=== PATIENT | male | born 1985 | race Caucasian/White ===

== ENCOUNTER 2023-07-19 06:39 | Outpatient (OUT) | payer OTHER, SELFPAY ==
[2023-07-19 06:57] LABS: Basophils Absolute Auto 0.1 10^3/uL (0.0-0.1); Basophils Percent Auto 0.5 % (0.2-2.0); Eosinophils Absolute Auto 0.3 10^3/uL (0.0-0.7); Eosinophils Percent Auto 1.6 % (0.9-7.0); Hematocrit 40.7 % (42.0-54.0); Hemoglobin 13.3 g/dL (14.0-18.0); Immature Granulocytes Abs Auto 0.19 10^3/uL (0.00-0.03); Immature Granulocytes Pct Auto 1.1 % (0.0-0.5); Lymphocytes Absolute Auto 2.4 10^3/uL (1.2-3.8); Lymphocytes Percent Auto 13.9 % (20.5-60.0); Mean Corpuscular HGB Conc 32.7 g/dL (29.9-35.2); Mean Corpuscular Hemoglobin 27.7 pg (25.9-34.0); Mean Corpuscular Volume 84.6 fL (80.0-94.0); Mean Platelet Volume 9.3 fL (9.5-13.5); Monocytes Absolute Auto 1.1 10^3/uL (0.3-0.8); Monocytes Percent Auto 6.5 % (1.7-12.0); Neutrophils Absolute Auto 13.3 10^3/uL (1.4-6.5); Neutrophils Percent Auto 76.4 % (43.0-75.0); Platelet Count 273 10^3/uL (150-450); Red Blood Count 4.81 10^6/uL (4.70-6.10); Red Cell Distribution Width 13.8 % (11.0-15.0); White Blood Count 17.4 10^3/uL (4.0-11.0)
[2023-07-19 07:05] LABS: Estimated Average Glucose 117 mg/dL; Glycohemoglobin A1C 5.7 % (4.5-6.2)
[2023-07-19 09:26] LABS: Alanine Aminotransferase 84 U/L (16-63); Albumin Globulin Ratio 0.9; Albumin Level 3.3 g/dL (3.4-5.0); Alkaline Phosphatase 76 U/L (46-116); Anion Gap 10.4; Aspartate Amino Transferase 36 U/L (15-37); BUN Creatinine Ratio 21.1; Bilirubin Total 0.4 mg/dL (0.2-1.0); Calcium 8.5 mg/dL (8.5-10.1); Carbon Dioxide 30.5 mmol/L (21.0-32.0); Chloride 102 mmol/L (98-107); Chol HDL Ratio 3.1; Cholesterol 154 mg/dL (<=200); Estimated GFR (African America >60 (>=60); Estimated GFR (Non-African Ame >60 (>=60); Globulin 3.8 g/dL; Glucose 97 mg/dL (74-106); HDL Cholesterol 50 mg/dL (40-60); LDL Cholesterol Calculated 93.6 mg/dL; Potassium 3.9 mmol/L (3.5-5.1); Sodium 139 mmol/L (136-145); Total Protein 7.1 g/dL (6.4-8.2); Triglycerides 52 mg/dL (<=150); VLDL CHOLESTEROL 10.4 mg/dL
== END 2023-07-19 06:40 | disposition home or self-care (01) ==
LOC: LAB 06:40
PROVIDERS: PCP Internal Medicine; Visit Provider Internal Medicine
DX: I10 Essential (primary) hypertension (principal); Z13.220 Encounter for screening for lipoid disorders; Z13.1 Encounter for screening for diabetes mellitus
CPT/HCPCS: 36415; 80053; 80061; 83036; 85025

== ENCOUNTER 2023-10-25 12:44 | Outpatient (OUT) | payer OTHER, SELFPAY ==
--- OUTSIDE RECORDS SUMMARY | 2023-10-25 12:49 | XMS_ITS | CCD ---
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 size, or use of iterative reconstruction technique. FINDINGS: The ventricles are within normal limits for size and position. There are no areas of abnormal attenuation. There is no hemorrhage, mass effect or extra-axial collections. The calvarium is intact. There is near complete opacification the imaged right maxillary sinus. There is also minor mucosal thickening in the anterior ethmoid region on that side. CT/CT head/brain wo con IMPRESSION: RIGHT-SIDED SINUS DISEASE. NO ACUTE INTRACRANIAL TRAUMA. CT CERVICAL SPINE WITHOUT CONTRAST WITH 3D RECONSTRUCTIONS: COMPARISON: None TECHNIQUE: Spiral axial unenhanced images were obtained through the cervical spine. Sagittal, coronal and 3D volume-rendered reconstructions were also reviewed. This CT exam was performed using one or more following dose reduction techniques: Automated exposure control, adjustment of the mA and/or kV according to patient size, or use of iterative reconstruction technique. FINDINGS: There is slight cervicothoracic levoscoliotic curvature. There is also reversal of the normal cervical lordosis. Alignment is maintained in the sagittal plane. No fractures are identified. No disproportionate disc space narrowing is noted. There is endplate spurring at C5-6 and C6-7. There is a suspected Schmorl's node at superior endplate of C7. The atlantoaxial relationship is maintained. No prevertebral soft tissue swelling is seen. There is opacification the imaged right maxillary sinus and polypoid mucosal change at the base of the left. Small shotty cervical lymph nodes are present. The upper imaged lungs show no contributory pulmonary findings. IMPRESSION: LOSS OF NORMAL CERVICAL CURVATURE. MINOR DEGENERATIVE CHANGE. NO ACUTE BONY INJURY. Impression dictated by: Elenita Young M.D.05/18/2023 3:34 PM Dictation Location: [place] [address] Transcribed By: [facility] 05/18/23 1534 Dictated By: Elenita Young MD 05/18/23 1528 Signed By: 05/18/23 1534 Normal [facility] AMYLASEon 11-17-2022 Amylase [Catalytic activity/Vol] 67 U/L Normal 25-115 [facility] Comment on above: Performed By: #### C MP, MARY KAY, LIPA #### [facility] [address] [address] [address] Shi Carter CBC AUTO DIFFon 11-17-2022 BASO # 0.1 103/ul Normal 0.0-0.1 [facility] Comment on above: Performed By: #### C BC #### [facility] [address] [place] [address] Dr. Shi Carter Basophils/100 WBC (Bld) 0.4 % Normal 0.2-2.0 [facility] Comment on above: Performed By: #### C BC #### [facility] [address] [address] [address] Shi Carter EO # 0.3 103/ul Normal 0.0-0.7 [facility] Comment on above: Performed By: #### C BC #### [facility] [address] [address] [address] Shi Carter Eosinophils/100 WBC (Bld) 1.9 % Normal 0.9-7.0 [facility] Comment on above: Performed By: #### C BC #### [facility] [address] [address] [address] Shi Carter Erythrocyte distribution width (RBC) [Ratio] 13.2 % Normal 11.0-15.0 [facility] Comment on above: Performed By: #### C BC #### [facility] [address] [place] [address] Dr. Shi Carter Hematocrit (Bld) [Volume fraction] 41.9 % Critically low 42.0-54.0 [facility] Comment on above: Performed By: #### C BC #### [facility] [address] [address] [address] Shi Carter Hemoglobin (Bld) [Mass/Vol] 14.1 g/dL Normal 14.0-18.0 [facility] Comment on above: Performed By: #### C BC #### [facility] [address] [address] [address] Shi Carter IG # 0.06 10e3/ul Critically high 0.00-0.03 [facility] Comment on above: Performed By: #### C BC #### [facility] [address] [address] [address] Shi Carter IG % 0.5 % Normal 0.0-0.5 [facility] Comment on above: Performed By: #### C BC #### [facility] [address] [place] [address] Dr. Shi Carter LYMPH # 2.6 103/ul Normal 1.2-3.8 [facility] Comment on above: Performed By: #### C BC #### [facility] [address] [address] [address] Shi Carter Lymphocytes/100 WBC (Bld) 19.9 % Critically low 20.5-60.0 [facility] Comment on above: Performed By: #### C BC #### [facility] [address] [place] [address] Dr. Shi Carter MANUAL DIFF REQ NO Normal [facility] Comment on above: Performed By: #### C BC #### [facility] [address] [address] [address] Shi Carter MCH (RBC) [Entitic mass] 27.1 pg Normal 25.9-34.0 [facility] Comment on above: Performed By: #### C BC #### [facility] [address] [address] [address] Shi Carter MCHC (RBC) [Mass/Vol] 33.7 g/dL Normal 29.9-35.2 [facility] Comment on above: Performed By: #### C BC #### [facility] [address] [address] [address] Shi Carter MCV (RBC) [Entitic vol] 80.4 fL Normal 80.0-94.0 [facility] Comment on above: Performed By: #### C BC #### [facility] [address] [address] [address] Shi Carter MONO # 0.9 103/ul Critically high 0.3-0.8 [facility] Comment on above: Performed By: #### C BC #### [facility] [address] [address] [address] Shi Carter Monocytes/100 WBC (Bld) 7.1 % Normal 1.7-12.0 [facility] Comment on above: Performed By: #### C BC #### [facility] [address] [place] [address] Dr. Shi Carter NEUT # 9.2 103/ul Critically high 1.4-6.5 [facility] Comment on above: Performed By: #### C BC #### [facility] [address] [place] [address] Dr. Shi Carter Neutrophils/100 WBC (Bld) 70.2 % Normal 43.0-75.0 [facility] Comment on above: Performed By: #### C BC #### [facility] [address] [address] [address] Shi Carter Platelet mean volume (Bld) [Entitic vol] 9.9 fL Normal 9.5-13.5 [facility] Comment on above: Performed By: #### C BC #### [facility] [address] [place] [address] Dr. Shi Carter PLT 291 103/ul Normal 150-450 [facility] Comment on above: Performed By: #### C BC #### [facility] [address] [address] [address] Shi Carter RBC 5.21 106/ul Normal 4.70-6.10 [facility] Comment on above: Performed By: #### C BC #### [facility] [address] [place], [place] [address] Dr. Shi Carter WBC 13.1 103/ul Critically high 4.0-11.0 [facility] Comment on above: Performed By: #### C BC #### [facility] [address] [place] [address] ABD/PELV W CONon 11-18-[address] ABD/PELV W CON CT ABDOMEN AND PELVIS WITH CONTRAST: INDICATION: UNSPECIFIED ABDOMINAL PAIN. COMPARISON: None. TECHNIQUE:Multiple thin section transaxial slices were acquired through the abdomen and pelvis with intravenous contrast. Coronal and sagittal reconstructed images were reviewed. Oral contrastWas not administered. FINDINGS: LOWER CHEST: The lower chest is unremarkable. LIVER: The liver is unremarkable. GALLBLADDER AND BILIARY SYSTEM: No obvious ductal dilation. No calcified stones. SPLEEN: The spleen is unremarkable. PANCREAS: The pancreas is unremarkable. ADRENAL GLANDS: The adrenal glands are unremarkable. KIDNEYS AND URETERS: There is no hydronephrosis of the kidneys.No obstructing urologic calcifications are present. VASCULATURE: Vascularity is unremarkable. PERITONEUM/RETROPER ITONEUM: Peritoneum/retroper itoneum is unremarkable. LYMPH NODES: No suspicious lymphadenopathy. GASTROINTESTINAL TRACT: The bowel is normal in caliber.There is chronic colonic diverticulosis of the colon without acute inflammation.The appendix is visualized and is not inflamed. BLADDER: The urinary bladder is unremarkable. REPRODUCTIVE SYSTEM: Reproductive system is unremarkable. BODY WALL: There is a tiny fat-containing umbilical hernia. BONES: Osseous structures are unremarkable. IMPRESSION: 1. No acute process in the abdomen or pelvis. Electronically authenticated by: IMTIAZ FONTANEZ Date: 2022-11-17 01:53 Normal [facility] LIPASEon 11-17-2022 Lipase [Catalytic activity/Vol] 86.0 U/L Normal 73.0-393.0 [facility] Comment on above: Performed By: #### C MARY KAY AHMADI LIPA #### [facility] [address] [place], [place] [address] Dr. Shi Carter PROF 14(COMP METB)on 023 Albumin [Mass/Vol] 3.7 g/dL Normal 3.4-5.0 [facility] Comment on above: Performed By: #### C MARY KAY AHMADI LIPA #### [facility] [address] [address] [address] Shi Carter Albumin/Globulin [Mass ratio] 1.1 {ratio} Normal [facility] Comment on above: Performed By: #### C MP, MARY KAY, LIPA #### [facility] [address] [address] [address] Shi Carter ALP [Catalytic activity/Vol] 81 U/L Normal 46-116 [facility] Comment on above: Performed By: #### C MP, MARY KAY, LIPA #### [facility] [address] [address] [address] Shi Carter ALT [Catalytic activity/Vol] 41 U/L Normal 16-63 [facility] Comment on above: Performed By: #### C MP, MARY KAY, LIPA #### [facility] [address] [place] [address] Dr. Shi Carter Anion gap [Moles/Vol] 8.7 mmol/L Normal [facility] Comment on above: Performed By: #### C MP, MARY KAY, LIPA #### [facility] [address] [place] [address] Dr. Shi Carter AST [Catalytic activity/Vol] 19 U/L Normal 15-37 [facility] Comment on above: Performed By: #### C MP, MARY KAY, LIPA #### [facility] [address] [place] [address] Dr. Shi Carter Bilirubin [Mass/Vol] 0.2 mg/dL Normal 0.2-1.0 [facility] Comment on above: Performed By: #### C MP, MARY KAY, LIPA #### [facility] [address] [address] [address] Shi Carter Calcium [Mass/Vol] 9.0 mg/dL Normal 8.5-10.1 [facility] Comment on above: Performed By: #### C MP, MARY KAY, LIPA #### [facility] [address] [address] [address] Shi Carter Chloride [Moles/Vol] 104 mmol/L Normal 98-107 [facility] Comment on above: Performed By: #### C MP, MARY KAY, LIPA #### [facility] [address] [address] [address] Shi Carter CO2 [Moles/Vol] 29.4 mmol/L Normal 21.0-32.0 [facility] Comment on above: Performed By: #### C MP, MARY KAY, LIPA #### [facility] [address] [place] [address] Dr. Shi Carter Creatinine [Mass/Vol] 0.85 mg/dL Normal 0.70-1.30 [facility] Comment on above: Performed By: #### C MP, MARY KAY, LIPA #### [facility] [address] [place] [address] Dr. Shi Carter EGFR-AF ARGENTINE >60 Normal >=60 [facility] Comment on above: Performed By: #### C MP, MARY KAY, LIPA #### [facility] [address] [place] [address] Dr. Shi Carter EGFR-NON AF ARGENTINE >60 Normal >=60 [facility] Comment on above: Performed By: #### C MP, MARY KAY, LIPA #### [facility] [address] [place] [address] Dr. Shi Carter Globulin (S) [Mass/Vol] 3.4 g/dL Normal [facility] Comment on above: Performed By: #### C MP, MARY KAY, LIPA #### [facility] [address] [place] [address] Dr. Shi Carter Glucose [Mass/Vol] 128 mg/dL Critically high 74-[address] [facility] Comment on above: Performed By: #### C MP, MARY KAY, LIPA #### [facility] [address] [place] [address] Dr. Shi Carter Potassium [Moles/Vol] 4.1 mmol/L Normal 3.5-5.1 [facility] Comment on above: Performed By: #### C MP, MARY KAY, LIPA #### [facility] [address] [place] [address] Dr. Shi Carter Protein [Mass/Vol] 7.1 g/dL Normal 6.4-8.2 [facility] Comment on above: Performed By: #### C MARY KAY AHMADI LIPA #### [facility] [address] [place] [address] Dr. Shi Carter Sodium [Moles/Vol] 138 mmol/L Normal 136-145 [facility] Comment on above: Performed By: #### C MARY KAY AHMADI LIPA #### [facility] [address] [place] [address] Dr. Shi Carter Urea nitrogen [Mass/Vol] 12.0 mg/dL Normal 7.0-18.0 [facility] Comment on above: Performed By: #### C MARY KAY AHMADI LIPA #### [facility] [address] [place] [address] Dr. Shi Carter Urea nitrogen/Creatinine [Mass ratio] 14.1 mg/mg Normal [facility] Comment on above: Performed By: #### C MARY KAY AHMADI LIPA #### [facility] [address] [place] [address] Dr. Shi Carter CBC AUTO DIFFon 12-04-2021 BASO # 0.1 103/ul Normal 0.0-0.1 [facility] Comment on above: Performed By: #### C BC #### [facility] [address] [place] [address] Dr. Shi Carter Basophils/100 WBC (Bld) 0.4 % Normal 0.2-2.0 [facility] Comment on above: Performed By: #### C BC #### [facility] [address] [place] [address] Dr. Shi Carter EO # 0.3 103/ul Normal 0.0-0.7 [facility] Comment on above: Performed By: #### C BC #### [facility] [address] [place] [address] Dr. Shi Carter Eosinophils/100 WBC (Bld) 2.3 % Normal 0.9-7.0 [facility] Comment on above: Performed By: #### C BC #### [facility] [address] [place] [address] Dr. Shi Carter Erythrocyte distribution width (RBC) [Ratio] 13.2 % Normal 11.0-15.0 [facility] Comment on above: Performed By: #### C BC #### [facility] [address] [place] [address] Dr. Shi Carter Hematocrit (Bld) [Volume fraction] 44.3 % Normal 42.0-54.0 [facility] Comment on above: Performed By: #### C BC #### [facility] [address] [place] [address] Dr. Shi Carter Hemoglobin (Bld) [Mass/Vol] 14.3 g/dL Normal 14.0-18.0 [facility] Comment on above: Performed By: #### C BC #### [facility] [address] [place] [address] Dr. Shi Carter IG # 0.15 10e3/ul Critically high 0.00-0.03 [facility] Comment on above: Performed By: #### C BC #### [facility] [address] [place] [address] Dr. Shi Carter IG % 1.2 % Critically high 0.0-0.5 [facility] Comment on above: Performed By: #### C BC #### [facility] [address] [place] [address] Dr. Shi Carter LYMPH # 2.9 103/ul Normal 1.2-3.8 [facility] Comment on above: Performed By: #### C BC #### [facility] [address] [place] [address] Dr. Shi Carter Lymphocytes/100 WBC (Bld) 23.3 % Normal 20.5-60.0 [facility] Comment on above: Performed By: #### C BC #### [facility] [address] [place] [address] Dr. Shi Carter MANUAL DIFF REQ NO Normal [facility] Comment on above: Performed By: #### C BC #### [facility] [address] [place] [address] Dr. Shi Carter MCH (RBC) [Entitic mass] 26.7 pg Normal 25.9-34.0 [facility] Comment on above: Performed By: #### C BC #### [facility] [address] [place] [address] Dr. Shi Carter MCHC (RBC) [Mass/Vol] 32.3 g/dL Normal 29.9-35.2 [facility] Comment on above: Performed By: #### C BC #### [facility] [address] [place] [address] Dr. Shi Carter MCV (RBC) [Entitic vol] 82.8 fL Normal 80.0-94.0 [facility] Comment on above: Performed By: #### C BC #### [facility] [address] [place] [address] Dr. Shi Carter MONO # 0.8 103/ul Normal 0.3-0.8 [facility] Comment on above: Performed By: #### C BC #### [facility] [address] [place] [address] Dr. Shi Carter Monocytes/100 WBC (Bld) 6.2 % Normal 1.7-12.0 [facility] Comment on above: Performed By: #### C BC #### [facility] [address] [place] [address] Dr. Shi Carter NEUT # 8.3 103/ul Critically high 1.4-6.5 [facility] Comment on above: Performed By: #### C BC #### [facility] [address] [place] [address] Dr. Shi Carter Neutrophils/100 WBC (Bld) 66.6 % Normal 43.0-75.0 [facility] Comment on above: Performed By: #### C BC #### [facility] [address] [place] [address] Dr. Shi Carter Platelet mean volume (Bld) [Entitic vol] 9.5 fL Normal 9.5-13.5 [facility] Comment on above: Performed By: #### C BC #### [facility] [address] [place] [address] Dr. Shi Carter PLT 359 103/ul Normal 150-450 [facility] Comment on above: Performed By: #### C BC #### [facility] [address] [place] [address] Dr. Shi Carter RBC 5.35 106/ul Normal 4.70-6.10 [facility] Comment on above: Performed By: #### C BC #### [facility] [address] [place] [address] Dr. Shi Carter WBC 12.4 103/ul Critically high 4.0-11.0 [facility] Comment on above: Performed By: #### C BC #### [facility] [address] [place] [address] Dr. Shi Carter CBC AUTO DIFFon 11-22-2021 BASO # 0.1 103/ul Normal 0.0-0.1 [facility] Comment on above: Performed By: #### C BC #### [facility] [address] [place] [address] Dr. Shi Cartre Basophils/100 WBC (Bld) 0.5 % Normal 0.2-2.0 [facility] Comment on above: Performed By: #### C BC #### [facility] [address] [place] [address] Dr. Shi Carter EO # 0.3 103/ul Normal 0.0-0.7 [facility] Comment on above: Performed By: #### C BC #### [facility] [address] [place] [address] Dr. Shi Carter Eosinophils/100 WBC (Bld) 2.1 % Normal 0.9-7.0 [facility] Comment on above: Performed By: #### C BC #### [facility] [address] [place] [address] Dr. Shi Carter Erythrocyte distribution width (RBC) [Ratio] 13.6 % Normal 11.0-15.0 [facility] Comment on above: Performed By: #### C BC #### [facility] [address] [place] [address] Dr. Shi Carter Hematocrit (Bld) [Volume fraction] 44.4 % Normal 42.0-54.0 [facility] Comment on above: Performed By: #### C BC #### [facility] [address] [place] [address] Dr. Shi Carter Hemoglobin (Bld) [Mass/Vol] 14.4 g/dL Normal 14.0-18.0 [facility] Comment on above: Performed By: #### C BC #### [facility] [address] [address] [address] Shi Carter IG # 0.35 10e3/ul Critically high 0.00-0.03 [facility] Comment on above: Performed By: #### C BC #### [facility] [address] [place] [address] Dr. Shi Carter IG % 2.3 % Critically high 0.0-0.5 [facility] Comment on above: Performed By: #### C BC #### [facility] [address] [address] [address] Shi Carter LYMPH # 2.4 103/ul Normal 1.2-3.8 [facility] Comment on above: Performed By: #### C BC #### [facility] [address] [place] [address] Dr. Shi Carter Lymphocytes/100 WBC (Bld) 15.8 % Critically low 20.5-60.0 [facility] Comment on above: Performed By: #### C BC #### [facility] [address] [place] [address] Dr. Shi Carter MANUAL DIFF REQ NO Normal [facility] Comment on above: Performed By: #### C BC #### [facility] [address] [address] [address] Shi Carter MCH (RBC) [Entitic mass] 27.0 pg Normal 25.9-34.0 [facility] Comment on above: Performed By: #### C BC #### [facility] [address] [place] [address] Dr. Shi Carter MCHC (RBC) [Mass/Vol] 32.4 g/dL Normal 29.9-35.2 [facility] Comment on above: Performed By: #### C BC #### [facility] [address] [place] [address] Dr. Shi Carter MCV (RBC) [Entitic vol] 83.3 fL Normal 80.0-94.0 [facility] Comment on above: Performed By: #### C BC #### [facility] [address] [place] [address] Dr. Shi Carter MONO # 1.0 103/ul Critically high 0.3-0.8 [facility] Comment on above: Performed By: #### C BC #### [facility] [address] [place] [address] Dr. Shi Carter Monocytes/100 WBC (Bld) 6.5 % Normal 1.7-12.0 [facility] Comment on above: Performed By: #### C BC #### [facility] [address] [place] [address] Dr. Shi Carter NEUT # 11.3 103/ul Critically high 1.4-6.5 [facility] Comment on above: Performed By: #### C BC #### [facility] [address] [place] [address] Dr. Shi Carter Neutrophils/100 WBC (Bld) 72.8 % Normal 43.0-75.0 [facility] Comment on above: Performed By: #### C BC #### [facility] [address] [place] [address] Dr. Shi Carter Platelet mean volume (Bld) [Entitic vol] 9.6 fL Normal 9.5-13.5 [facility] Comment on above: Performed By: #### C BC #### [facility] [address] [place] [address] Dr. Shi Carter PLT 343 103/ul Normal 150-450 [facility] Comment on above: Performed By: #### C BC #### [facility] [address] [place] [address] Dr. Shi Carter RBC 5.33 106/ul Normal 4.70-6.10 [facility] Comment on above: Performed By: #### C BC #### [facility] [address] [address] [address] Shi Carter WBC 15.5 103/ul Critically high 4.0-11.0 [facility] Comment on above: Performed By: #### C BC #### [facility] [address] [address] [address] Shi Carter GLYCOHEMOGLOBIN A1Con 2021 ADA RECOMMENDATION ADA THERAPEUTIC TARGET 6.0 - 7.0 ACTION SUGGESTED > 7.0 Normal [facility] Comment on above: Performed By: #### A 1C #### [facility] [address] [address] [address] Shi Carter Glucose [Mass/Vol] 117 mg/dL Normal [facility] Comment on above: Performed By: #### A 1C #### [facility] [facility] [address] [address] [address] Shi Carter HbA1c (Bld) [Mass fraction] 5.7 % Normal <=6.0 [facility] Comment on above: Performed By: #### A 1C #### [facility] [address] [place] [address] Dr. Shi Carter LIPID PROFILEon 11-22-2021 CHOL-HDL RATIO NORM SEE BELOW Normal [facility] Comment on above: Result Comment: 3.3 - 4.4 LOW RISK 4.4 - 7.1 AVERAGE RISK 7.1 - 11.0 MODERATE RISK >11.0 HIGH RISK Performed By: #### L IPID, CMP #### [facility] [address] [place] [address] Dr. Shi Carter Cholesterol [Mass/Vol] 163 mg/dL Normal <=200 [facility] Comment on above: Performed By: #### L IPID, CMP #### [facility] [address] [place] [address] Dr. Shi Carter Cholesterol in HDL [Mass/Vol] 44 mg/dL Normal [facility] Comment on above: Performed By: #### L IPID, CMP #### [facility] [address] [address] [address] Shi Carter Cholesterol in LDL [Mass/Vol] 97.6 mg/dL Normal [facility] Comment on above: Performed By: #### L IPID, CMP #### [facility] [address] [place] [address] Dr. Shi Carter Cholesterol.total/Chol esterol in HDL [Mass ratio] 3.7 {ratio} Normal [facility] Comment on above: Performed By: #### L IPID, CMP #### [facility] [address] [place] [address] Dr. Shi Carter HDL NORMAL > or = 60 mg/dl - LOW CARDIOVASCULAR RISK <40 mg/dl - HIGH CARDIOVASCULAR RISK Normal [facility] Comment on above: Performed By: #### L IPID, CMP #### [facility] [address] [place] [address] Dr. Shi Carter LDL CALC NORMAL SEE BELOW Normal [facility] Comment on above: Result Comment: <100 mg/dl OPTIMAL 100 - 129 mg/dl NEAR OR ABOVE OPTIMAL 130 - 159 mg/dl BORDERLINE HIGH 160 - 189 mg/dl HIGH >190 mg/dl VERY HIGH Performed By: #### L IPID, CMP #### [facility] [address] [place] [address] Dr. Shi Carter Triglyceride [Mass/Vol] 107 mg/dL Normal <=150 [facility] Comment on above: Performed By: #### L IPID, CMP #### [facility] [address] [place] [address] Dr. Shi Carter VLDL CALC 21.4 mg/dL Normal [facility] Comment on above: Performed By: #### L IPID, CMP #### [facility] [address] [place] [address] Dr. Shi Carter PROF 14(COMP METB)on 022 Albumin [Mass/Vol] 3.2 g/dL Critically low 3.5-5.0 [facility] Comment on above: Performed By: #### L IPID, CMP #### [facility] [address] [place] [address] Dr. Shi Carter Albumin/Globulin [Mass ratio] 0.8 {ratio} Normal [facility] Comment on above: Performed By: #### L IPID, CMP #### [facility] [address] [address] [address] Shi Carter ALP [Catalytic activity/Vol] 92 U/L Normal 38-126 [facility] Comment on above: Performed By: #### L IPID, CMP #### [facility] [address] [address] [address] Shi Carter ALT [Catalytic activity/Vol] 36 U/L Normal 21-72 [facility] Comment on above: Performed By: #### L IPID, CMP #### [facility] [address] [place] [address] Dr. Shi Carter Anion gap [Moles/Vol] 11.1 mmol/L Normal [facility] Comment on above: Performed By: #### L IPID, CMP #### [facility] [address] [place] [address] Dr. Shi Carter AST [Catalytic activity/Vol] 19 U/L Normal 17-59 [facility] Comment on above: Performed By: #### L IPID, CMP #### [facility] [address] [place] [address] Dr. Shi Carter Bilirubin [Mass/Vol] 0.2 mg/dL Normal 0.2-1.3 [facility] Comment on above: Performed By: #### L IPID, CMP #### [facility] [address] [place] [address] Dr. Shi Carter Calcium [Mass/Vol] 8.3 mg/dL Critically low 8.4-10.2 [facility] Comment on above: Performed By: #### L IPID, CMP #### [facility] [address] [place] [address] Dr. Shi Carter Chloride [Moles/Vol] 104 mmol/L Normal 98-107 [facility] Comment on above: Performed By: #### L IPID, CMP #### [facility] [address] [place] [address] Dr. Shi Carter CO2 [Moles/Vol] 29.3 mmol/L Normal 22.0-30.0 [facility] Comment on above: Performed By: #### L IPID, CMP #### [facility] [address] [address] [address] Shi Carter Creatinine [Mass/Vol] 0.99 mg/dL Normal 0.66-1.25 [facility] Comment on above: Performed By: #### L IPID, CMP #### [facility] [address] [address] [address] Shi Carter EGFR-AF ARGENTINE >60 Normal >=60 [facility] Comment on above: Performed By: #### L IPID, CMP #### [facility] [address] [place] [address] Dr. Shi Carter EGFR-NON AF ARGENTINE >60 Normal >=60 [facility] Comment on above: Performed By: #### L IPID, CMP #### [facility] [address] [place] [address] Dr. Shi Carter Globulin (S) [Mass/Vol] 4.1 g/dL Normal [facility] Comment on above: Performed By: #### L IPID, CMP #### [facility] [address] [place] [address] Dr. Shi Carter Glucose [Mass/Vol] 103 mg/dL Normal 74-106 [facility] Comment on above: Performed By: #### L IPID, CMP #### [facility] [address] [place] [address] Dr. Shi Carter Potassium [Moles/Vol] 4.4 mmol/L Normal 3.4-5.0 [facility] Comment on above: Performed By: #### L IPID, CMP #### [facility] [address] [place] [address] Dr. Shi Carter Protein [Mass/Vol] 7.3 g/dL Normal 6.1-8.2 [facility] Comment on above: Performed By: #### L IPID, CMP #### [facility] [address] [place] [address] Dr. Shi Carter Sodium [Moles/Vol] 140 mmol/L Normal 137-145 [facility] Comment on above: Performed By: #### L IPID, CMP #### [facility] [address] [place] [address] [address] [address] Shi Carter Urea nitrogen [Mass/Vol] 14.0 mg/dL Normal 9.0-20.0 [facility] Comment on above: Performed By: #### L IPID, CMP #### [facility] [address] [place], [place] [address] Dr. Shi Carter Urea nitrogen/Creatinine [Mass ratio] 14.1 mg/mg Normal [facility] Comment on above: Performed By: #### L IPID, CMP #### [facility] [address] [place], [place] [id number] Dr. Shi Carter Vital Signs Date Time Vital Sign Value Performing Clinician Facility 10-22-2023 07:40-0500 Diastolic blood pressure 87 mm[Hg] Dominga Timmis [facility] 10-22-2023 07:40-0500 Heart rate 76 /min Dominga Timmis [facility] 10-22-2023 07:40-0500 Mean blood pressure 106 mm[Hg] Dominga Timmis [facility] 10-22-2023 07:40-0500 Systolic blood pressure 144 mm[Hg] Dominga Timmis [facility] 10-22-2023 07:40-0500 Heart rate 78 /min Dominga Timmis [facility] 10-22-2023 07:40-0500 SaO2% (BldA) [Mass fraction] 97 % Dominga Timmis [facility] 10-22-2023 07:40-0500 Diastolic blood pressure 84 mm[Hg] Dominga Timmis [facility] 10-22-2023 07:40-0500 Mean blood pressure 103 mm[Hg] Dominga Conner [facility] 10-22-2023 07:40-0500 Systolic blood pressure 142 mm[Hg] Dominga Conner [facility] 10-16-2023 13:45-0500 Body height 185.42 cm Sylvia Colonmond Other [facility] Other 10-16-2023 13:45-0500 Body mass index (BMI) [Ratio] 58.94 kg/m2 Sylvia Colonmond Other [facility] 10-16-2023 13:45-0500 Body temperature 96.8 [degF] Sylvia Colonmond Other [facility] Other 10-16-2023 13:45-0500 Body weight 202.67 kg Sylvia Colonmond Other [facility] Other 10-16-2023 13:45-0500 Diastolic blood pressure 90 mm[Hg] Sylvia Colonmond Other [facility] Other 10-16-2023 13:45-0500 Respiratory rate 18 /min Sylvia Colonmond Other [facility] Other 10-16-2023 13:45-0500 SaO2% (BldA) [Mass fraction] 99 % Sylvia Yuliana Other [facility] Other 10-16-2023 13:45-0500 Systolic blood pressure 134 mm[Hg] Sylvia Yuliana Other [facility] Other 07-16-2023 09:25-0500 Body height 185.42 cm Sheeba Renia Other [facility] Other 07-16-2023 09:25-0500 Body mass index (BMI) [Ratio] 54.56 kg/m2 Sheeba Reina Other [facility] Other 07-16-2023 09:25-0500 Body temperature 98.8 [degF] Sheeba Reina Other [facility] Other 07-16-2023 09:25-0500 Body weight 187.61 kg Sheeba Reina Other [facility] Other 07-16-2023 09:25-0500 Diastolic blood pressure 78 mm[Hg] Sheeba Reina Other [facility] Other 07-16-2023 09:25-0500 Respiratory rate 18 /min Sheeba Reina Other [facility] Other 07-16-2023 09:25-0500 SaO2% (BldA) [Mass fraction] 97 % Sheeba Jonesler Other [facility] Other 07-16-2023 09:25-0500 Systolic blood pressure 118 mm[Hg] Sheeba Reina Other [facility] Other Encounters Encounter Date Encounter Type Care Provider Facility Start: 10-22-2023 Clinisync Result Encounter Dominga Conner MD Work Phone: [facility] Unsolicited Start: 10-22-2023 Clinisync Result Encounter Dominga Conner MD Work Phone: [facility] Unsolicited Start: 10-22-2023 End: 10-23-2023 ambulatory Dominga Conner Facility:[facility] Start: 10-22-2023 End: 10-22-2023 Patient encounter procedure Dominga Deepika Dalila [facility] Start: 10-16-2023 End: 10-16-2023 ambulatory Sylvia Bridges Other [employer] [facility] Other Start: 10-16-2023 Office outpatient vi sit 15 minutes Sylvia Bridges [facility] Start: 09-18-2023 End: 09-18-2023 ambulatory DOMINGA H TIMMIS Not Available Start: 09-17-2023 Patient encounter status Dominga Conner MD Work Phone: [facility] Start: 09-17-2023 End: 09-17-2023 ambulatory BUT[facility] FAWWAD Not Available Start: 09-14-2023 End: 09-15-2023 ambulatory Dominga Conner Facility:[facility] Start: 09-14-2023 End: 09-14-2023 Patient encounter procedure Dominga Deepika Dalila [facility] Start: 08-07-2023 End: 08-07-2023 ambulatory DOMINGA Poe TIMMIS Not Available Start: 07-16-2023 End: 07-16-2023 ambulatory Sheeba Reina Other [facility] Other Start: 07-16-2023 Office outpatient ne w 30 minutes Sheeba Reina [facility] Start: 05-18-2023 End: 05-18-2023 Emergency department patient visit NON STAFF Facility:[facility] Start: 11-17-2022 End: 11-17-2022 ambulatory BUTTERFIELD H FAWWAD Facility:[facility] Start: 12-04-2021 End: 12-05-2021 ambulatory BUT[facility]FIELD H FAWWAD Facility:[facility] Start: 11-22-2021 End: 11-23-2021 ambulatory [facility] H FAWWAD Facility:[facility] Procedures Date Procedure Procedure Detail Performing Clinician Start: 10-22-2023 [facility] PT & PTT Dominga Conner MD Work Phone: Ethmoid sinusectomy Dominga David immyessi Lipoma (disorder) Dominga Narinder allie Tonsillectomy Dominga Conner Plan of Treatment Date Care Activity Detail Author Start: 03-08-2024 Influenza vaccination Influenza Vacc ine (#1) [facility] Comment on above: Postponed from 05/10 (Patient Refused) Start: 11-15-2023 End: 11-15-2023 Patient encounter procedure 11/15/2023 8:30 AM EST Office Visit [facility] [address] [place] [address] Dominga Conner MD [address] [facility] [address] [place] [address] [facility] Start: 11-07-2023 End: 11-07-2023 Patient encounter procedure 11/07/2023 9:00 AM EST Procedure Visit [facility] Dominga Conner MD [address] [facility] [address] [place] [address] [facility] Start: 10-29-2023 End: 10-29-2023 Patient encounter procedure 10/29/2023 9:00 AM EST Office Visit [facility] [address] [place] [id number] Shaikh Ley MD [address] [place] [id number] [facility] Payers Date Payer Category Payer Self-pay 2023 Unknown [id number] 2022 Unknown [id number] 2022 Unknown [employer] [id number] 2022-Present [phone] [address] [address] [place] [address] [id number] 1986 Unknown [id number] 1986 Unknown [id number] 1986 Unknown [id number] 1986 Unknown [id number] 9 1986 Unknown [id number] 9 1986 Unknown [id number] 9 1986 Unknown [id number] 1986 Unknown [id number] 1959 Unknown [id number] 1959 Unknown [id number] Unknown [id number] Social History Date Type Detail Facility Unknown if ever smoked [facility] Other Start: 09-10-2023 End: 09-18-2023 Sex Assigned At [facility] Tobacco smoking status No Smokin g Status Entered [facility] Start: 09-17-2023 Tobacco smoking status NHIS Ex-smoker [facility] History of tobacco use Current smoker [facility] History of tobacco use Cigarette Smoker [facility] Start: 09-17-2023 Tobacco use and exposure Smokeless tobacco non-user [facility] Start: 09-18-2023 Alcohol intake Ex-drinker (finding) [facility] Start: 09-10-2023 End: 09-18-2023 History of Social function [facility] Within the last year , have you been afraid of your partner or ex-partner? No [facility] Are you now , , , , never or living with a partner? [facility] How often to you hav e a drink containing alcohol? 2-4 times a month [facility] How many standard dr inks containing alcohol do you have on a typical day? 1 or 2 [facility] How often do you hav e 6 or more drinks on 1 occasion? Never [facility] How hard is it for y ou to pay for the very basics like food, housing, medical care, and heating Hard [facility] Do you feel stress - tense, restless, nervous, or anxious, or unable to sleep at night because your mind is troubled all the time - these days [OSQ] To some extent [facility] (I/We) worried [facility] (my/our) food would run out before (I/we) got money to buy more. Never true [facility] In the past 12 month s, has lack of transportation kept you from medical appointments or from getting medications? No [facility] Start: 08-06-2023 Alcohol Comment caffeine: yes soda [facility] Start: 1985 Sex Assigned At Not on file [facility] Functional Status Date Assessment Result Facility 10-22-2023 Functional Status No [facility] History and physical note 10-21-2023 Note Date & Type Note Facility 10-21-2023 Note [id number]#1.00[facility] Evaluation note 10-16-2023 Note Date & Type Note Facility 10-16-2023 Evaluation note Encounter Date Diagnosis Assessment Notes Oct, Acute folliculitis (ICD-10 - L73.9) Take the cephalexin as prescribed until gone. Apply warm compresses to the area 2-3 times a day. Take Tylenol or Motrin as needed for aches pains or fevers. Follow-up with your family physician if no improvement in 2 to 3 days. Go to the ER for worsening symptoms or concerns. [facility] Other Evaluation note 07-16-2023 Note Date & Type Note Facility 07-16-2023 Evaluation note Encounter Date Diagnosis Assessment Notes Jul, Contact with and (suspected) exposure to covid-19 (ICD-10 - Z20.822) Jul, Viral URI with cough (ICD-10 - J06.9) Advised patient that COVID/Influenza A/B test was negative today. Advised patient that will treat as viral URI. Supportive care as directed, increase fluids and rest, Tylenol as directed, rx of Capmist, prednisone, and Flonase, cool mist humidifier, throat lozenges. Discussed infection control practices such as good hand washing and mask wearing. Patient to follow up with PCP if symptoms persist or worsen despite treatment. Immediate eval for SOB, difficulty breathing, chest pain, fevers that do not break with antipyretic or any other concerning symptoms as reviewed on patient education handout. Patient verbalizes understanding and is agreeable to treatment plan. Patient left in stable condition [employer] [facility] Other History general Narrative - Reported 10-12-2015 Note Date & Type Note Facility 10-12-2015 History general N arrative - Reported Type Medical History EGD 10/12/2015- mild esophagus Surgical History Tonsilectomy Surgical History deviated septum repair Surgical History sinus surgery Hospitalization History see above [facility] Other History general Narrative - Reported 10-12-2015 Note Date & Type Note Facility 10-12-2015 History general N arrative - Reported Type Medical History EGD 10/12/2015- mild esophagus Surgical History Tonsilectomy Surgical History deviated septum repair Surgical History sinus surgery Surgical History sinus surgery Hospitalization History see above [facility] Other Evaluation + Plan note Note Date & Type Note Facility Evaluation + Plan note No data available for this section [facility] Evaluation + Plan note Note Date & Type Note Facility Evaluation + Plan note Future Appointments Appointment Date:11/07/2023 08:00:00 AM Scheduled Provider: Location:[facility] Appointment Type:Surgery FT [facility] Hospital Discharge instructions Note Date & Type Note Facility Hospital Discharge instructions No data available for this section [facility] Progress note Note Date & Type Note Facility Progress note No data available for this section [facility] Summary Purpose Family History No Family History Records FoundNo Family History Records Found No data available for this section No Family History Records Found No data available for this section No Family History Records Found Advance Directives No Advanced Directives Records FoundNo Advanced Directives Records FoundNo Advanced Directives Records FoundNo Advanced Directives Records Found Additional Source Comments (unrecognized sect ion and content) No Status Records FoundNo Status Records FoundNo Status Records FoundNo Status Records Found INFORMATION SOURCE (unrecogn ized section and content) DATE CREATED AUTHOR 11/21/2022 [facility] DATE CREATED AUTHOR AUTHOR'S ORGANIZ ATION 06/13/2023 [facility] DATE CREATED AUTHOR AUTHOR'S ORGANIZ ATION 09/18/2023 [facility] EPIC DATE CREATED AUTHOR AUTHOR'S ORGANIZ ATION 10/23/2023 [facility] REASON FOR VISIT (unrecogniz ed section and content) STUFFY, NOSE PLUG, DRAINING, SWOLLEN GLANDS,POSS INFECTED ABCESS IN GROIN AREA Care Teams (unrecognized sec tion and content) Business Intelligence Administrator Relationship Specialty Start Date End Date Shaikh Ley MD PCP - General Internal Medicine 07/01/23 FOR RECORDS PERTAINING TO PATIENTS WHO ARE OR HAVE BEEN ENROLLED IN A CHEMICAL DEPENDENCY/SUBSTANCEABUSE PROGRAM, SOME INFORMATION MAY BE OMITTED. This clinical summary was aggregated from multiple sources. Caution should be exercised in using it in the provision of clinical care. This summary normalizes information from multiple sources, and as a consequence, information in this document may materially change the coding, format and clinical context of patient data. In addition, data may be omitted in some cases. CLINICAL DECISIONS SHOULD BE BASED ON THE PRIMARY CLINICAL RECORDS. [email or web address] [facility]. provides no warranty or guarantee of the accuracy or completeness of information in this document.
[2023-10-25 13:22] LABS: Basophils Absolute Auto 0.1 10^3/uL (0.0-0.1); Basophils Percent Auto 0.4 % (0.2-2.0); Eosinophils Absolute Auto 0.3 10^3/uL (0.0-0.7); Eosinophils Percent Auto 2.2 % (0.9-7.0); Hematocrit 41.9 % (42.0-54.0); Hemoglobin 13.3 g/dL (14.0-18.0); Immature Granulocytes Pct Auto 0.9 % (0.0-0.5); Lymphocytes Absolute Auto 2.2 10^3/uL (1.2-3.8); Lymphocytes Percent Auto 19.2 % (20.5-60.0); Mean Corpuscular HGB Conc 31.7 g/dL (29.9-35.2); Mean Platelet Volume 9.5 fL (9.5-13.5); Monocytes Absolute Auto 0.7 10^3/uL (0.3-0.8); Monocytes Percent Auto 6.4 % (1.7-12.0); Neutrophils Absolute Auto 8.2 10^3/uL (1.4-6.5); Neutrophils Percent Auto 70.9 % (43.0-75.0); Platelet Count 327 10^3/uL (150-450); Red Blood Count 4.93 10^6/uL (4.70-6.10); Red Cell Distribution Width 13.2 % (11.0-15.0); White Blood Count 11.6 10^3/uL (4.0-11.0)
[2023-10-25 13:33] LABS: INR 0.99; Partial Thromboplastin Time 31.4 sec (22.3-36.2); Prothrombin Time 10.5 sec (9.0-11.6)
== END 2023-10-25 12:45 | disposition home or self-care (01) ==
LOC: LAB 12:45
PROVIDERS: PCP Internal Medicine; Visit Provider Otolaryngology
DX: J32.8 Other chronic sinusitis (principal)
CPT/HCPCS: 85025; 85610; 85730

== ENCOUNTER 2024-01-09 14:48 | Outpatient (OUT) | payer OTHER, SELFPAY ==
--- NOTE | 2024-01-09 15:26 | XR_ITS ---
The [address] [address] Patient Name: NEAL LIMON MRN: [id number] date: 1985 Sex: M Assigned Patient Location: LAB Current Patient Location: LAB Accession/Order Number: [id number] Exam Date: 01/09/2024 15:30 Report Date: 01/09/2024 16:11 At the request of: SHAIKH ALBERTO Procedure: XR chest 2V EXAMINATION: XR chest 2V HISTORY: Respiratory illness J98.9 COMPARISON: No relevant comparison available. TECHNIQUE: PA and lateral FINDINGS: LUNGS: No significant pulmonary parenchymal abnormalities. VASCULATURE: No increased pulmonary vasculature. PLEURA: No pneumothorax, effusion, or pleural thickening. CARDIAC: No cardiomegaly or cardiac silhouette abnormality. MEDIASTINUM: No visible mass or adenopathy. BONES: No fracture or visible bone lesion. OTHER: Negative. XR/XR chest 2V IMPRESSION: No acute cardiopulmonary process Electronically authenticated by: MERLE CHANCE Date: 01/09/2024 16:11
== END 2024-01-09 14:49 | disposition home or self-care (01) ==
PROVIDERS: PCP Internal Medicine; Visit Provider Internal Medicine
DX: J98.9 Respiratory disorder, unspecified (principal)
CPT/HCPCS: 71046

== ENCOUNTER 2024-01-11 00:51 | Emergency (ER) | payer OTHER, SELFPAY ==
[2024-01-11 00:56] VITALS: BP 134/97; PULSE 78; TEMP 36.3; O2SAT 96; BMI 55.4
--- NOTE | 2024-01-11 01:11 | ED_ITS ---
HPI HPI - General Adult General Chief complaint: Nausea/Vomiting/Diarrhea Stated complaint: Blood in stool Time Seen by Provider: 01/11/24 00:55 Source: patient Mode of arrival: walk-in Limitations: no limitations History of Present Illness HPI narrative: 38-year-old male presents to the emergency department for blood in his stool. He had taken his dog for a walk today and had a burning sensation in his perianal area and when he got home he went into the bathroom and passed some blood. He states it was bright in color. No abdominal pain or cramping. This has never happened to him before and he has never had a colonoscopy. No vomiting. Related Data Home Medications ?Medication ?Instructions ?Recorded ?Confirmed benzonatate 100 mg capsule mg PO 01/11/24 fluticasone propionate 50 intranasal 01/11/24 mcg/actuation nasal spray,suspension levofloxacin 750 mg tablet mg 01/11/24 losartan 100 tab 01/11/24 mg-hydrochlorothiazide 25 mg tablet montelukast 10 mg tablet mg 01/11/24 prednisone 20 mg tablet mg 01/11/24 Allergies Allergy/AdvReac Type Severity Reaction Status Date / Time No Known Drug Allergies Allergy Verified 01/11/24 00:56 Opioid HPI Opioid Management Most Recent Opioid Data: No Data to Display Review of Systems ROS Narrative A ten point review of systems is negative except as noted above. Exam Narrative Exam Narrative: Nurses note and vital signs reviewed and patient is not hypoxic. General: The patient appears well and in no apparent distress. Patient is resting comfortably on cart. Skin: Warm, dry, no pallor noted. There is no rash noted. Head: Normocephalic, atraumatic Eye: Normal conjunctiva, no drainage Ears, Nose, Mouth, and Throat: oral mucosa is moist. Nares patent. Cardiovascular: Regular Rate and Rhythm Respiratory: Patient is in no distress, no accessory muscle use, lungs are clear to auscultation, no wheezing, rales or rhonchi Back: non-tender GI: Obese and nontender. Perianal examination shows no external hemorrhoids. Musculoskeletal: The patient has no evidence of calf tenderness, no pitting edema, symmetrical pulses noted bilaterally Neurological: A&O, normal speech Psychiatric: Cooperative Constitutional Vital Signs, click to edit/add: Last Vital Signs Temp 97.3 F L 01/11/24 00:56 Pulse 78 01/11/24 00:56 Resp 18 01/11/24 00:56 BP 134/97 H 01/11/24 00:56 Pulse Ox 96 01/11/24 00:56 O2 Del Method Room Air 01/11/24 00:56 Course Vital Signs Vital signs: Vital Signs Temperature 97.3 F L 01/11/24 00:56 Pulse Rate 78 01/11/24 00:56 Respiratory Rate 18 01/11/24 00:56 Blood Pressure 134/97 H 01/11/24 00:56 Pulse Oximetry 96 01/11/24 00:56 Oxygen Delivery Method Room Air 01/11/24 00:56 Temperature 97.3 F L 01/11/24 00:56 Pulse Rate 78 01/11/24 00:56 Respiratory Rate 18 01/11/24 00:56 Blood Pressure 134/97 H 01/11/24 00:56 Pulse Oximetry 96 01/11/24 00:56 Oxygen Delivery Method Room Air 01/11/24 00:56 Medical Decision Making MDM Narrative Medical decision making narrative: Hemoglobin is normal. He is being referred to GI for appropriate follow-up. The possible need for endoscopy was discussed with the patient. Differential Diagnosis Differential Diagnosis: Internal hemorrhoid, external hemorrhoid Lab Data Lab results reviewed: Yes I reviewed the patient's lab results Labs: Lab Results 01/11/24 Range/Units 01:29 WBC 13.9 H (4.0-11.0) 10^3/uL RBC 4.97 (4.70-6.10) 10^6/uL Hgb 13.0 L (14.0-18.0) g/dL Hct 40.5 L (42.0-54.0) % MCV 81.5 (80.0-94.0) fL MCH 26.2 (25.9-34.0) pg MCHC 32.1 (29.9-35.2) g/dL RDW 13.3 (11.0-15.0) % Plt Count 317 (150-450) 10^3/uL MPV 9.1 L (9.5-13.5) fL Neut % (Auto) 72.5 (43.0-75.0) % Lymph % (Auto) 17.9 L (20.5-60.0) % [place] % (Auto) 7.0 (1.7-12.0) % Eos % (Auto) 1.6 (0.9-7.0) % Baso % (Auto) 0.5 (0.2-2.0) % Neut # (Auto) 10.1 H (1.4-6.5) 10^3/uL Lymph # (Auto) 2.5 (1.2-3.8) 10^3/uL [place] # (Auto) 1.0 H (0.3-0.8) 10^3/uL Eos # (Auto) 0.2 (0.0-0.7) 10^3/uL Baso # (Auto) 0.1 (0.0-0.1) 10^3/uL Abs Immat Gran (auto) 0.07 H (0.00-0.03) 10^3/uL Imm/Tot Granulo (auto) 0.5 (0.0-0.5) % Sodium 137 (136-145) mmol/L Potassium 4.0 (3.5-5.1) mmol/L Chloride 102 (98-107) mmol/L Carbon Dioxide 28.4 (21.0-32.0) mmol/L Anion Gap 10.6 BUN 17.0 (7.0-18.0) mg/dL Creatinine 1.26 (0.70-1.30) mg/dL Est GFR ( Amer) >60 (>=60) Est GFR (Non-Af Amer) >60 (>=60) BUN/Creatinine Ratio 13.5 Glucose 94 (74-106) mg/dL Calcium 9.0 (8.5-10.1) mg/dL Discharge Plan Discharge Stand Alone Forms: Portal Instructions Chief Complaint: Nausea/Vomiting/Diarrhea Clinical Impression: Rectal bleeding Patient Disposition: Home, Self-Care Time of Disposition Decision: 02:09 Condition: Good Mode of Transportation: Private Vehicle Prescriptions / Home Meds: No Action prednisone 20 mg tablet losartan-hydrochlorothiazide 100-25 mg tablet benzonatate 100 mg capsule PO montelukast 10 mg tablet levofloxacin 750 mg tablet fluticasone propionate 50 mcg/actuation spray,suspension INTRANASAL Print Language: [place] Instructions: Rectal Bleeding (ED) Additional Instructions: Follow-up with Dr. Gonzalez Referrals: Lorenzo Gonzalez MD [Physician] - 1 week Shaikh Ley MD [Primary Care Provider] - 1 week
--- OUTSIDE RECORDS SUMMARY | 2024-01-11 01:30 | XMS_ITS | CCD ---
Author Organization [facility] Care Team Providers Care Splitter Operator Name Role Phone FAWWALon, BUTTERFIELD H Primary Care Unavailable BECKIE, KRYSTINA Attending Unavailable BECKIE, KRYSTINA Consulting Unavailable BECKIE, KRYSTINA Admitting Unavailable STRAWLENI, IMTIAZ Consulting Unavailable FAWWAD, BUTTERFIELD H Primary Care Unavailable FAWWAD, BUTTERFIELD H Admitting Unavailable FAWWAD, BUTTERFIELD H Attending Unavailable FAWWAD, BUTTERFIELD H Consulting Unavailable FAWWAD, BUTTERFIELD H Primary Care Unavailable FAWWAD, BUTTERFIELD H Admitting Unavailable FAWWAD, BUTTERFIELD H Attending Unavailable FAWWAD, BUTTERFIELD H Consulting Unavailable NON STAFF Primary Care Unavailable Dorothy Bloom Attending Unavailable Dorothy Bloom Admitting Unavailable Sheeba Reina Unavailable NONE, XXXX Primary Care Physician Unavailab Sylvia Bergeron Unavailable Shaikh Ley MD Primary Care Provider SHAIKH LEY Primary Care Physician [phone] Timmis, Dominga H Referring Unavailable Timmis, Dominga H Attending Unavailable Timmis, Dominga H Admitting Unavailable Timmis, Dominga H Referring Unavailable Timmis, Dominga H Attending Unavailable Timmis, Dominga H Admitting Unavailable Timmis, Dominga H Referring Unavailable Timmis, Dominga H Attending Unavailable Timmis, Dominga H Admitting Unavailable FAWWAD, BUTTERFIELD Attending Unavailable TIMMIS, DOMINGA H Attending Unavailable TIMMIS, DOMINGA H Attending Unavailable FAWWAD, BUTTERFIELD Referring Unavailable FAWWASHAIKH Forrest Attending Unavailable TIMMIS, DOMINGA H Attending Unavailable FAWWAD, BUTTERFIELD Attending Unavailable Allergies Allergy Classification Reported Allergen(s) Allergy Type Date of Onset Reaction(s) Facility (1 source) No Known Medication Allergies; Translations: [No Known Medication Allergies] Propensity to adverse reactions (disorder) [facility] Repository Medications Current Medications Medication Drug Class(es) Dates Sig (Normalized) Sig (Original) Centrum Men's oral tablet (2 sources) Start: 10-22-2023 take 1 tablet by mouth once daily Centrum Men's oral tablet 1 tab(s), Oral, Daily Prophylaxis Start Date: 10/22/23 Status: Ordered cephalexin 500 mg oral capsule (1 source) Cephalosporin Antibacterial Start: 10-16-2023 take 1 capsule by mouth every eight hours Cephalexin 500 MG 1 capsule Orally tid for 10 day(s) Oct, Active Fish Oils (2 sources) Start: 10-22-2023 take 2 capsules by mouth twice daily as needed Fish Oil 500 mg oral capsule 1,000 mg = 2 cap(s), Oral, BID, PRN Prophylaxis Start Date: 10/22/23 Status: Ordered hydroCHLOROthiazide 25 mg / losartan potassium 100 mg oral tablet (3 sources) Thiazide Diuretic, Angiotensin 2 Receptor Andrey [...] 09/18/2023 09/17/2024 Active Probiotic 10 Ultra Strength (2 sources) Start: 10-22-2023 take 1 capsule by mouth once daily Probiotic 10 Ultra Strength 1 cap(s), Oral, Daily Prophylaxis Start Date: 10/22/23 Status: Ordered Vitamin C 25 mg oral tablet, chewable (2 sources) Start: 10-22-2023 take 1 tablet by mouth once daily as needed Vitamin C 25 mg oral tablet, chewable 25 mg = 1 tab(s), Chewed, Daily, PRN Prophylaxis Start Date: 10/22/23 Status: Ordered Completed/Discontinued Medications Medication Drug Class(es) Dates Sig (Normalized) Sig (Original) dextromethorphan hydrobromide 15 mg / guaiFENesin 400 mg / pseudoephedrine hydrochloride 60 mg oral tablet (2 sources) alpha-Adrenergic Agonist, Uncompetitive N-fmgpmk-A-aspartate Receptor Antagonist, Sigma-1 Agonist Start: 07-16-2023 take 4 tablets by mouth every twenty-four hours as needed Capmist DM 60-15-400 MG as needed Orally every 4-6 hours as needed, max 4 tablets in 24 hours for 5 days Jul, Not-Taking/PRN dextromethorphan hydrobromide 30 mg / pyrilamine maleate 30 mg oral tablet (2 sources) Uncompetitive N-brsbxr-R-aspartate Receptor Antagonist, Sigma-1 Agonist Start: 10-26-2019 Adamant DMT 30-30 MG 1 tablet Orally every [...] Esophagitis; Translations: [Esophagitis, unspecified] Episodic Essential hypertension (3 sources) Hypertensive disorder; Translations: [Essential (primary) hypertension] [...] Onset: 07-30-2023 07-30-2023 Episodic Other upper respiratory disease (1 source) Polyp of nasal sinus; Translations: [Other polyp of sinus] Onset: 11-07-2023 Episodic Other upper respiratory infections (2 sources) Chronic maxillary sinusitis; Translations: [Chronic maxillary sinusitis] Onset: 09-18-2023 09-18-2023 Chronic Other upper respiratory infections (1 source) Acute upper respiratory infection, unspecified Episodic Residual codes; unclassified (1 source) Sleep apnea, unspecified; Translations: [SLEEP APNEA UNSPECIFIED] Onset: 11-20-2022 Chronic Residual codes; unclassified (2 sources) Sleep apnea 10-22-2023 Chronic Residual codes; unclassified [...] in other specified circumstances; Translations: [PERS ENC HLTH SRVC OTH CIRCUMSTANCE] Onset: 11-23-2021 Episodic Other screening for suspected conditions (not mental disorders or infectious disease) (5 sources) Encounter for screening for diabetes mellitus; Translations: [Encounter for screening for lipoid disorders] Onset: 11-22-2021 Episodic Unclassified (1 source) Contact with and (suspected) exposure to covid-19 Z20.822 Results Test Name Value Interpretation Reference Range Facility IntraOperative Documentson 0 11-15-2023 IntraOperative Documents [id number] 2#1.00TIFF Normal [facility] Postoperative Documentson Postoperative Documents [id number] 3#1.00TIFF Normal [facility] Main OR Intraoperative Recor don 11-12-2023 Main OR Intraoperative Record IntraOp Document Type FT Summary Primary Physician: Dominga Romero MD Finalized Date/Time: 11/12/23 09:06:54 Pt. Name: ASHLYKULDIP/Sex: 1985 Male Med Rec #: [id number] Physician: Dominga Romero MD Financial #: [id number] Pt. Type: A Room/Bed: Admit/Disch: 11/07/23 06:53:06 - 11/07/23 11:55:00 Institution: Case Times FT Entry 1 Patient Times In Room 11/07/23 09:21:00 Out Room 11/07/23 10:25:00 Procedure Times Start 11/07/23 09:55:00 Stop 11/07/23 10:14:00 Anesthesia Times Start 11/07/23 09:21:00 Stop 11/07/23 10:25:00 Last Modified By: Vickie DURON, Daniel Rausch 11/07/23 10:25:16 General Comments: 11/12/23 Chart opened to review and send charges [facility] CSFA Case Attendance FT Entry 1 Entry 2 Entry 3 Case Attendee Levar PEARL, CLINICAL BIOSTATISTICS DIRECTOR, Queen Dalila COLLINS, Dominga Johnston RN, Daniel Euceda Role Performed CLINICAL BIOSTATISTICS DIRECTOR Surgeon - Primary Tack Puller - Primary Time In 11/07/23 09:21:00 11/07/23 09:49:00 11/07/23 09:21:00 Time Out 11/07/23 10:24:00 11/07/23 10:19:00 11/07/23 10:24:00 Procedure ANTROSTOMY TURBINECTOMY ANTROSTOMY TURBINECTOMY ANTROSTOMY TURBINECTOMY ETHMOIDECTOMY ETHMOIDECTOMY ETHMOIDECTOMY IM(Bilateral) IM(Bilateral) IM(Bilateral) Comments , anesthesia slot floor supervisor Last Modified By: Teressa CERTIFIED COATINGS INSPECTOR, Kaylie Johnston RN, Daniel Johnston RN, Daniel Rausch 11/12/23 09:00:41 11/07/23 10:24:51 11/07/23 10:24:51 Entry 4 Entry 5 Entry 6 Case Attendee Chapjhon, Michelle Pierce RN, Skylar Richardson CERTIFIED COATINGS INSPECTOR, Rob Wilkerson Role Performed Scrub - Primary Staff - Other Staff - Other Time In 11/07/23 09:21:00 11/07/23 09:21:00 11/07/23 09:21:00 Time Out 11/07/23 10:24:00 11/07/23 09:57:00 11/07/23 09:50:00 Procedure ANTROSTOMY TURBINECTOMY ANTROSTOMY TURBINECTOMY ANTROSTOMY TURBINECTOMY ETHMOIDECTOMY ETHMOIDECTOMY ETHMOIDECTOMY IM(Bilateral) IM(Bilateral) IM(Bilateral) Comments positioning help positioning help Last Modified By: Vickie DURON, Daniel Johnston RN, Daniel Johnston RN, Daniel Rausch 11/07/23 10:24:51 11/07/23 10:24:51 11/07/23 10:24:51 Perioperative Protocols FT Pre-Care Text: Implements protective measures prior to operative or invasive procedure, confirms identity before the operative or invasive procedure, verifies operative procedure, surgical site, and laterality Entry 1 Procedure(s) ANTROSTOMY TURBINECTOMY Patient Identity Birthday, ID Band ETHMOIDECTOMY Verified (select at Check, Patient IM(Bilateral) least 2): Participation Consents / H and P Anesthesia Consent, Operative Site Present Verified HandP, Surgery/Procedure Marking Verified Consent Surgical Site Yes Laterality Verified n/a Verified Procedure Verified Yes Correct Patient Yes Position Verified Availability Equipment, Medication Prep Dry n/a Verified (If Applicable) [facility] Queen CROWELL Time Out Complete 11/07/23 09:51:00 Participants Ok, Dominga Romero MD, Vickie DURON, Deepa Jay Madison A, Saflund RN, Skylar Sandhu Outcomes Met? Yes Last Modified By: Daniel Johnston RN 11/07/23 10:08:01 Post-Care Text: The patient is free from signs and symptoms of injury caused by extraneous objects Allergy Information FT Pre-Care Text: Verifies allergies Entry 1 Allergies Reviewed? Yes Allergies Reviewed Self/Patient With Outcomes Met? Yes Last Modified By: Daniel Johnston RN 11/07/23 10:08:18 Post-Care Text: The patient received appropriate medication(s) safely administered during the perioperative period Surgical Procedures FT Entry 1 Procedure Description Procedure ANTROSTOMY TURBINECTOMY Modifiers Bilateral ETHMOIDECTOMY IMAGE GUIDED Surgeon Description BILATERAL REVISION, RIGHT MAXILLARY ANTROSTOMY REMOVAL OF TISSUE, LEFT MAXILLARY ANTROSTOMY, IMAGE GUIDED, MICRODEBRIDER Primary Procedure Yes Primary Surgeon Dominga Romero MD Start 11/07/23 09:55:00 Stop 11/07/23 10:14:00 Anesthesia Type General Surgical Service ENT Wound Class 2 - Clean-Contaminated Last Modified By: Daniel Johnston RN 11/07/23 10:31:54 General Case Data FT Pre-Care Text: Classifies surgical wound, implements aseptic technique, initiates traffic control Entry 1 Case Information OR OR 2 FT Case Level Level 3 Wound Class 2 - Clean-Contaminated Specialty ENT ASA Class 3 Preop Diagnosis CHRONIC MAXILLARY Postop Same As Preop Yes SINUSITIS, NASAL POLYPS Postop Diagnosis CHRONIC MAXILLARY Outcomes Met? Yes SINUSITIS, NASAL POLYPS Last Modified By: Daniel Johnston RN 11/07/23 10:08:52 Post-Care Text: The patient is free from signs and symptoms of infection Skin Assessment (Pre Procedure) FT Pre-Care Text: Implements protective measures to prevent skin/ tissue injury due to thermal or mechanical sources Evaluates for signs and symptoms of physical injury to skin and tissue Entry 1 Skin Integrity Intact, [place], Warm, and Skin Abnormality No Dry Outcomes Met? Yes Last Modified By: Daniel Johnston RN 11/07/23 10:08:58 P (more content not included)... Normal [facility] Progress Note-Physicianon Progress Note-Physician Patient: KULDIP SEYMOUR Age: 38 years Sex: Male : 1985 Associated Diagnoses: None Author: MD Martinez Ahmad F Postoperative Information Postoperative disposition: Postoperative disposition: To PACU. Optimetrix number: Optimetrix number [id number]. Anesthetic utilized: General. Health Status Allergies: Allergic Reactions (Selected) No Known Medication Allergies Physical Examination VS/Measurements Pain Assessment: Controlled. General: Awake, Alert, Appropriate. Respiratory: Adequate air exchange. Cardiovascular: Stable, Normal peripheral perfusion. Neurological: Normal sensory function, Normal motor function. Assessment Anesthetic outcome No anesthetic complications noted. Adequate pain relief. able to void without difficulty, able to ambulate with assist, tolerating PO intake, no N/V. Review / Management Condition: Stable. Plan Transfer/Discharge: Transfer/Discharge Discharge when meets criteria ( To home ). [facility] Comment on above: Result Comment: Elec tronically Signed By: MD Martinez Ahmad F\.br\Date and Time Signed: 11/11/23 08:00 EST Progress Note-Physician Patient: KULDIP SEYMOUR Age: 38 years Sex: Male : 1985 Associated Diagnoses: None Author: MD Martinez Ahmad F Preoperative Information Time patient last ate or drank:=== (npo 8 hours) Anesthesia history: Patient history: No prior anesthesia problems. Re-evaluation prior to induction: Completed, Initial evaluation reviewed. Review of Systems Respiratory: No shortness of breath. Cardiovascular: No chest pain. Hematology/Lymphatic s: No bruising tendency, No bleeding tendency. Health Status Allergies: Allergic Reactions (All) No Known Medication Allergies Current medications: (Selected) Documented Medications Documented Centrum Men's oral tablet: 1 tab(s), Oral, Daily Prophylaxis Fish Oil 500 mg oral capsule: 1,000 mg = 2 cap(s), Oral, BID, PRN Prophylaxis Probiotic 10 Ultra Strength: 1 cap(s), Oral, Daily Prophylaxis Vitamin C 25 mg oral tablet, chewable: 25 mg = 1 tab(s), Chewed, Daily, PRN Prophylaxis hydrochlorothiazide- losartan 25 mg-100 mg Tab: 1 tab(s), Oral, Daily, High blood pressure Problem list: All Problems Hypertension / SNOMED CT 4124558838 / Confirmed Sleep apnea / SNOMED CT 616971996 / Confirmed Histories Past Medical History: No active or resolved past medical history items have been selected or recorded. Family History: No family history items have been selected or recorded. Procedure history: Endoscopic ethmoidectomy with turbinectomy (7278000111) on 11/07/2023 at 38 Years. Ethmoidectomy (98495743). Lipoma removal of back (014491466). Tonsillectomy (096295950). Social History Social & Psychosocial Habits Alcohol 10/22/2023 Risk Assessment: Low Risk Substance Abuse 10/22/2023 Risk Assessment: No Risk Tobacco 10/22/2023 Risk Assessment: No Risk . Physical Examination Please see preop flow sheet Airway: Mallampati classification: II (soft palate, fauces, uvula visible). Respiratory: Lungs are clear to auscultation. Cardiovascular: Normal rate, Regular rhythm. Neurologic: Alert. Review / Management Results review Interpretation of Outside Results Chest x-ray results Radiology results ECG interpretation Condition Plan [place] [employer] Anesthesiologists (ASA) physical status classification: Class III. Anesthetic Preoperative Plan Anesthesia: General. . Anesthetic plan, risks, benefits, and alternatives discussed with the patient and/or family. Risks discussed: nausea, vomiting, headache, sore throat, dental injury, serious complications. Patient verbalized understanding. Communication: face to face with patient 5 minutes. Normal [facility] Comment on above: Result Comment: Elec tronically Signed By: MD Michelle, Mac Cruz\.jodi\Date and Time Signed: 11/11/23 07:58 EST Consent for Anesthesiaon Consent for Anesthesia [id number] #1.00TIFF [facility] Discharge Instructionson Discharge Instructions [id number] #1.00TIFF [facility] IntraOperative Documentson 0 11-08-2023 IntraOperative Documents [id number] #1.00TIFF [facility] Outside Recordson 11-08-2023 Outside Records [id number] #1.00TIFF [facility] Pre-Op Checkliston Pre-Op Checklist [id number] #1.00TIFF [facility] Preoperative Documentson Preoperative Documents [id number] #1.00TIFF [facility] Consent for Procedure/Surger yon 11-07-2023 Consent for Procedure/Surgery [id number] #1.00TIFF [facility] Consent for Treatmenton 10-11 Consent for Treatment [id number] #1.00TIFF [facility] Discharge Instructionson Discharge Instructions KULDIP SEYMOUR :1985 Visit Date:11/07/2023 Inpatient Discharge Instructions Your Care Team Admitting Physician - Dominga Romero MD Referring Physician - Dominga Romero MD Reason for Your Visit CHRONIC MAXILLARY SINUSITIS, NASAL POLYPS Your Diagnosis Chronic maxillary sinusitis Polyp, maxillary sinus Tests Performed Pathology Tissue Exam -- Results Pending -- Please visit your patient portal for your results or contact your primary care physician. This Is Your Medications List ascorbic acid (Vitamin C 25 mg oral tablet, chewable) bifidobacterium-lact obacillus (Probiotic 10 Ultra Strength) hydrochlorothiazide- losartan (hydrochlorothiazide -losartan 25 mg-100 mg Tab) multivitamin with minerals (Centrum Men's oral tablet) omega-3 polyunsaturated fatty acids (Fish Oil 500 mg oral capsule) Procedure History Ethmoidectomy, Lipoma, Tonsillectomy. What to do next Instructions From Your Doctor Event Name Event Result Discharge Activity Expect mild pain, Expect minimal amount of drainage and/or bleeding, Activity as tolerated Discharge Diet(s) Regular Call Your Doctor For Persistent or heavy bleeding Discharge Instructions Discharge Instructions New Follow Up Appointments after Discharge Follow Up with Dominga Romero When: In 8 days 11/15/2023 EST Where: [address] [place] [address] [address], [address] [place] [phone] Business (1) Medications What How Much When Instructions Next Dose Unchanged ascorbic acid (Vitamin C 25 mg oral tablet, chewable) 1 Tablets Chewed Every day as needed for Prophylaxis Unchanged bifidobacterium-lact obacillus (Probiotic 10 Ultra Strength) 1 Capsules By Mouth Every day as needed for Prophylaxis Unchanged hydrochlorothiazide- losartan (hydrochlorothiazide -losartan 25 mg-100 mg Tab) 1 Tablets By Mouth Every day Unchanged multivitamin with minerals (Centrum Men's oral tablet) 1 Tablets By Mouth Every day as needed for Prophylaxis Unchanged omega-3 polyunsaturated fatty acids (Fish Oil 500 mg oral capsule) 2 Capsules By Mouth 2 times a day as needed for Prophylaxis Education Materials Sinus Endoscopy, Care After After a sinus endoscopy, it is common to have: ? Discomfort in the sinus area. ? Some bleeding. ? Irritation or damage to the lining of the: ? Nose. ? Mouth. ? Throat. ? Sinuses. If you had treatments done during your procedure, you may also have: ? A headache. ? Congestion. ? Fluid coming from your nose. ? A dry nose. Follow these instructions at home: Your health care provider may give you more instructions. If you have problems, contact your health care provider. Medicines ? Take or use hjgy-ilq-rtfrnoi and prescription medicines only as told by your health care provider. ? If you were prescribed an antibiotic medicine, use it as told by your health care provider. Do not stop using it even if you start to feel better. ? Use nose sprays and rinses as told by your health care provider. General instructions ? Avoid blowing your nose and sneezing. ? If you were given a sedative during your procedure, do not drive or use machines until your health care provider says that it is safe. A sedative is a medicine that helps you relax. ? Keep your head raised (elevated) for the first few nights after the procedure, or as told by your health care provider. This helps to decrease inflammation. ? Do not smoke or use any products that contain nicotine or tobacco. If you need help quitting, ask your health care provider. ? Return to your normal activities when your health care provider says that it is safe. ? Keep all follow-up visits. Contact a health care provider if: ? You have pain or discomfort that does not get better with mwlu-ufx-gdhflvm medicine. ? You have a fever. ? You have more clear fluid or blood coming from your nose. ? You have pus or a bad smell coming from your nose. ? You have nausea. ? You start to vomit. Get help right away if: ? You have bleeding from your nose that does not stop. ? You have changes in your vision. ? You cannot stop vomiting. These symptoms may be an emergency. Get help right away. Call 911. ? Do not wait to see if the symptoms will go away. ? Do not drive yourself to the hospital. Summary ? After this procedure, it is common to have discomfort in the sinus area. ? If you were given an antibiotic medicine, use it as told by your health care provider. Do not stop using it even if you start to feel better. ? Avoid blowing your nose and sneezing after the procedure. ? Keep your head raised (elevated) for the first few nights after the procedure, or as told by your health care provider. This helps to decrease inflammation. ? Get help right away if you have bleedin (more content not included)... Normal [facility] Comment on above: Result Comment: Elec tronically Signed By: Vernon DURON, Mratin Castaneda\.br\Date and Time Signed: 11/07/23 11:25 EST H&P Updateon 11-07-2023 H&P Update [id number] #1.00TIFF Normal [facility] Inpatient Patient Summaryon 11-07-2023 Inpatient Patient Summary [address] [address] [facility] Clinical Discharge Instructions PERSON INFORMATION Name: KULDIP SEYMOUR PHYSICIANS Admitting Physician: Dominga Romero MD Attending Physician: Dominga Romero MD PCP: ALB[facility] COLLINS, [facility] Discharge Diagnosis: Chronic maxillary sinusitis; Polyp, maxillary sinus Comment: PATIENT EDUCATION INFORMATION Instructions: Medication Leaflets: Follow up: With: Address: When: Dominga Dalila [address] [place] [address], [facility] [address], [address] [place] [address] Business (1) In 8 days 11/15/2023 MEDICATION LIST Medications to Continue with No Changes Other Medications ascorbic acid (Vitamin C 25 mg oral tablet, chewable) 1 Tablets Chewed every day as needed Prophylaxis. bifidobacterium-lact obacillus (Probiotic 10 Ultra Strength) 1 Capsules By Mouth every day as needed Prophylaxis. hydrochlorothiazide- losartan (hydrochlorothiazide -losartan 25 mg-100 mg Tab) 1 Tablets By Mouth every day. multivitamin with minerals (Centrum Men's oral tablet) 1 Tablets By Mouth every day as needed Prophylaxis. omega-3 polyunsaturated fatty acids (Fish Oil 500 mg oral capsule) 2 Capsules By Mouth 2 times a day as needed Prophylaxis. Comment: Normal [facility] Main OR PACU I Recordon 10-11 Main OR PACU I Record PACU Phase I Document Type FT Summary Primary Physician: Dominga Romero MD Finalized Date/Time: 11/07/23 11:18:33 Pt. Name: KULDIP SEYMOUR Pilo Elaine/Sex: 1985 Male Med Rec #: [id number] Physician: Dominga Romero MD Financial #: [id number] Pt. Type: A Room/Bed: Admit/Disch: 11/07/23 06:53:06 - Institution: Case Times PACU I FT Pre-Care Text: Identifies barriers to communication and implements measures to provide psychological support Develops individualized plan of care, and ensures continuity of care Maintains patient's dignity and privacy, and maintains patient confidentiality Identifies and reports philosophical, cultural, and spiritual beliefs and values Identifies individual values and wishes concerning care Implements aseptic technique, and administers prescribed antibiotic therapy and immunizing agents as ordered Evaluates postoperative tissue perfusion Implements thermoregulation measures, and monitors body temperature Evaluates postoperative respiratory status Evaluates postoperative cardiac status Evaluates postoperative neurological status Assesses pain control, collaborated in initiating patient-controlled analgesia and implements alternative methods of pain control Verifies allergies, administers prescribed medications and solutions, evaluates response to medications Entry 1 In PACU I 11/07/23 10:26:00 Discharge from PACU 11/07/23 10:56:00 I Outcomes Met? Yes Last Modified By: Bertha Tolentino I 11/07/23 11:18:18 Post-Care Text: The patient demonstrates knowledge of the expected response to the operative or invasive procedure The patient's care is consistent with the individualized perioperative plan of care The patient's right to privacy is maintained The patient's value system, lifestyle, ethnicity, and culture are considered, respected, and incorporated into the perioperative plan of care The patient participates in decisions affecting his or her perioperative plan of care The patient is free from signs and symptoms of infection The patient has wound/tissue perfusion consistent with or improved from baseline levels established preoperatively The patient is at or returning to normothermia at the conclusion of the immediate postoperative period The patient's respiratory function is consistent with or improved from baseline levels established preoperatively The patient's cardiovascular status is consistent with or improved from baseline levels established preoperatively The patient's cardiovascular status is consistent with or improved from baseline levels established preoperatively The patient demonstrates and/or reports adequate pain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 Carter IG % 0.5 % Normal 0.0-0.5 [facility] Comment on above: Performed By: #### C BC #### [facility] [address] [address] [address] Shi Carter LYMPH # 2.6 103/ul Normal 1.2-3.8 [facility] Comment on above: Performed By: #### C BC #### [facility] [address] [place] [address] Dr. Shi Carter Lymphocytes/100 WBC (Bld) 19.9 % Critically low 20.5-60.0 [facility] Comment on above: Performed By: #### C BC #### [facility] [address] [place] [address] Dr. Shi Carter MANUAL DIFF REQ NO Normal [facility] Comment on above: Performed By: #### C BC #### [facility] [address] [place] [address] Dr. Shi Carter MCH (RBC) [Entitic mass] 27.1 pg Normal 25.9-34.0 [facility] Comment on above: Performed By: #### C BC #### [facility] [address] [place] [address] Dr. Shi Carter MCHC (RBC) [Mass/Vol] 33.7 g/dL Normal 29.9-35.2 [facility] Comment on above: Performed By: #### C BC #### [facility] [address] [place] [address] Dr. Shi Carter MCV (RBC) [Entitic vol] 80.4 fL Normal 80.0-94.0 [facility] Comment on above: Performed By: #### C BC #### [facility] [address] [address] [address] Shi Carter MONO # 0.9 103/ul Critically high 0.3-0.8 [facility] Comment on above: Performed By: #### C BC #### [facility] [address] [address] [address] Shi Carter Monocytes/100 WBC (Bld) 7.1 % Normal 1.7-12.0 [facility] Comment on above: Performed By: #### C BC #### [facility] [address] [address] [address] Shi Carter NEUT # 9.2 103/ul Critically high 1.4-6.5 [facility] Comment on above: Performed By: #### C BC #### [facility] [address] [place] [address] Dr. Shi Carter Neutrophils/100 WBC (Bld) 70.2 % Normal 43.0-75.0 [facility] Comment on above: Performed By: #### C BC #### [facility] [address] [address] [address] Shi Carter Platelet mean volume (Bld) [Entitic vol] 9.9 fL Normal 9.5-13.5 [facility] Comment on above: Performed By: #### C BC #### [facility] [address] [address] [address] Shi Carter PLT 291 103/ul Normal 150-450 [facility] Comment on above: Performed By: #### C BC #### [facility] [address] [address] [address] Shi Carter RBC 5.21 106/ul Normal 4.70-6.10 [facility] Comment on above: Performed By: #### C BC #### [facility] [address] [address] [address] Shi Carter WBC 13.1 103/ul Critically high 4.0-11.0 [facility] Comment on above: Performed By: #### C BC #### [facility] [address] [address] [address] ABD/PELV W CONon 11-18-19 CT ABD/PELV W CON CT ABDOMEN AND [...] calcifications are present. VASCULATURE: Vascularity is unremarkable. PERITONEUM/RETROPERI TONEUM: Peritoneum/retroperi toneum is unremarkable. LYMPH NODES: No suspicious lymphadenopathy. [...] by: IMTIAZ FONTANEZ Date: 2022-11-17 01:53 Normal [facility] LIPASEon 11-17-2022 Lipase [Catalytic activity/Vol] 86.0 U/L Normal 73.0-393.0 [facility] Comment on above: Performed By: #### C MARY KAY AHMADI LIPA #### [facility] [address] [address] [address] Shi Carter PROF 14(COMP METB)on 023 Albumin [Mass/Vol] 3.7 g/dL Normal 3.4-5.0 [facility] Comment on above: Performed By: #### C MARY KAY AHMADI LIPA #### [facility] [address] [address] [address] Shi Carter Albumin/Globulin [Mass ratio] 1.1 {ratio} Normal [facility] Comment on above: Performed By: #### C MARY KAY AHMADI, LIPA #### [facility] [address] [address] [address] Shi Carter ALP [Catalytic activity/Vol] 81 U/L Normal 46-116 [facility] Comment on above: Performed By: #### C MP, MARY KAY, LIPA #### [facility] [address] [address] [address] Shi Carter ALT [Catalytic activity/Vol] 41 U/L Normal 16-63 [facility] Comment on above: Performed By: #### C MP, MARY KAY, LIPA #### [facility] [address] [address] [address] Shi Carter Anion gap [Moles/Vol] 8.7 mmol/L Normal [facility] Comment on above: Performed By: #### C MP, MARY KAY, LIPA #### [facility] [address] [address] [address] Shi Carter AST [Catalytic activity/Vol] 19 U/L Normal 15-37 [facility] Comment on above: Performed By: #### C MP, MARY KAY, LIPA #### [facility] [address] [address] [address] Shi Carter Bilirubin [Mass/Vol] 0.2 mg/dL Normal 0.2-1.0 [facility] Comment on above: Performed By: #### C MP, MARY KAY, LIPA #### [facility] [address] [address] [address] Shi Carter Calcium [Mass/Vol] 9.0 mg/dL Normal 8.5-10.1 [facility] Comment on above: Performed By: #### C MP, MARY KAY, LIPA #### [facility] [address] [address] [address] Shi Carter Chloride [Moles/Vol] 104 mmol/L Normal 98-107 [facility] Comment on above: Performed By: #### C MP, MARY KAY, LIPA #### [facility] [address] [address] [address] Shi Carter CO2 [Moles/Vol] 29.4 mmol/L Normal 21.0-32.0 [facility] Comment on above: Performed By: #### C MP, MARY KAY, LIPA #### [facility] [address] [place] [address] Dr. Shi Carter Creatinine [Mass/Vol] 0.85 mg/dL Normal 0.70-1.30 [facility] Comment on above: Performed By: #### C MP, MARY KAY, LIPA #### [facility] [address] [address] [address] Shi Carter EGFR-AF SWISS >60 Normal >=60 [facility] Comment on above: Performed By: #### C MP, MARY KAY, LIPA #### [facility] [address] [place] [address] Dr. Shi Carter EGFR-NON AF SWISS >60 Normal >=60 [facility] Comment on above: Performed By: #### C MP, MARY KAY, LIPA #### [facility] [address] [place] [address] Dr. Shi Carter Globulin (S) [Mass/Vol] 3.4 g/dL Normal [facility] Comment on above: Performed By: #### C MP, MARY KAY, LIPA #### [facility] [address] [place] [address] Dr. Shi Carter Glucose [Mass/Vol] 128 mg/dL Critically high 74-106 [facility] Comment on above: Performed By: #### C MP, MARY KAY, LIPA #### [facility] [address] [place] [address] Dr. Shi Carter Potassium [Moles/Vol] 4.1 mmol/L Normal 3.5-5.1 [facility] Comment on above: Performed By: #### C MP, MARY KAY, LIPA #### [facility] [address] [place] [address] Dr. Shi Carter Protein [Mass/Vol] 7.1 g/dL Normal 6.4-8.2 [facility] Comment on above: Performed By: #### C MP, MARY KAY, LIPA #### [facility] [address] [place] [address] Dr. Shi Carter Sodium [Moles/Vol] 138 mmol/L Normal 136-145 [facility] Comment on above: Performed By: #### C MARY KAY AHMADI LIPA #### [facility] [address] [place] [address] Dr. Shi Carter Urea nitrogen [Mass/Vol] 12.0 mg/dL Normal 7.0-18.0 [facility] Comment on above: Performed By: #### C MARY KAY AHMADI LIPA #### [facility] [address] [place] [address] Dr. Shi Carter Urea nitrogen/Creatinine [Mass ratio] 14.1 mg/mg Normal [facility] Comment on above: Performed By: #### C MARY KAY AHMADI LIPA #### [facility] [address] [place] [address] Dr. Shi Carter CBC AUTO DIFFon 12-04-2021 BASO # 0.1 103/ul Normal 0.0-0.1 [facility] Comment on above: Performed By: #### C BC #### [facility] [address] [place] [address] Dr. Shi Carter Basophils/100 WBC (Bld) 0.4 % Normal 0.2-2.0 [facility] Comment on above: Performed By: #### C BC #### [facility] [address] [place] [address] Dr. Shi Carter EO # 0.3 103/ul Normal 0.0-0.7 [facility] Comment on above: Performed By: #### C BC #### [facility] [address] [place] [address] Dr. Shi Carter Eosinophils/100 WBC (Bld) 2.3 % Normal 0.9-7.0 [facility] Comment on above: Performed By: #### C BC #### [facility] [address] [place] [address] Dr. Shi Carter Erythrocyte distribution width (RBC) [Ratio] 13.2 % Normal 11.0-15.0 [facility] Comment on above: Performed By: #### C BC #### [facility] [address] [address] [address] Shi Carter Hematocrit (Bld) [Volume fraction] 44.3 % Normal 42.0-54.0 [facility] Comment on above: Performed By: #### C BC #### [facility] [address] [address] [address] Shi Carter Hemoglobin (Bld) [Mass/Vol] 14.3 g/dL Normal 14.0-18.0 [facility] Comment on above: Performed By: #### C BC #### [facility] [address] [place] [address] Dr. Shi Carter IG # 0.15 10e3/ul Critically high 0.00-0.03 [facility] Comment on above: Performed By: #### C BC #### [facility] [address] [place] [address] Dr. Shi Carter IG % 1.2 % Critically high 0.0-0.5 [facility] Comment on above: Performed By: #### C BC #### [facility] [address] [place] [address] Dr. Shi Carter LYMPH # 2.9 103/ul Normal 1.2-3.8 [facility] Comment on above: Performed By: #### C BC #### [facility] [address] [place] [address] Dr. Shi Carter Lymphocytes/100 WBC (Bld) 23.3 % Normal 20.5-60.0 [facility] Comment on above: Performed By: #### C BC #### [facility] [address] [place] [address] Dr. Shi Carter MANUAL DIFF REQ NO Normal [facility] Comment on above: Performed By: #### C BC #### [facility] [address] [place] [address] Dr. Shi Carter MCH (RBC) [Entitic mass] 26.7 pg Normal 25.9-34.0 [facility] Comment on above: Performed By: #### C BC #### [facility] [address] [place] [address] Dr. Shi Carter MCHC (RBC) [Mass/Vol] 32.3 g/dL Normal 29.9-35.2 [facility] Comment on above: Performed By: #### C BC #### [facility] [address] [address] [address] Shi Carter MCV (RBC) [Entitic vol] 82.8 fL Normal 80.0-94.0 [facility] Comment on above: Performed By: #### C BC #### [facility] [address] [address] [address] Shi Carter MONO # 0.8 103/ul Normal 0.3-0.8 [facility] Comment on above: Performed By: #### C BC #### [facility] [address] [place] [address] Dr. Shi Carter Monocytes/100 WBC (Bld) 6.2 % Normal 1.7-12.0 [facility] Comment on above: Performed By: #### C BC #### [facility] [address] [place] [address] Dr. Shi Carter NEUT # 8.3 103/ul Critically high 1.4-6.5 [facility] Comment on above: Performed By: #### C BC #### [facility] [address] [place] [address] Dr. Shi Carter Neutrophils/100 WBC (Bld) 66.6 % Normal 43.0-75.0 [facility] Comment on above: Performed By: #### C BC #### [facility] [address] [place] [address] Dr. Shi Carter Platelet mean volume (Bld) [Entitic vol] 9.5 fL Normal 9.5-13.5 [facility] Comment on above: Performed By: #### C BC #### [facility] [address] [address] [address] Shi Carter PLT 359 103/ul Normal 150-450 [facility] Comment on above: Performed By: #### C BC #### [facility] [address] [address] [address] Shi Carter RBC 5.35 106/ul Normal 4.70-6.10 [facility] Comment on above: Performed By: #### C BC #### [facility] [address] [place] [address] Dr. Shi Carter WBC 12.4 103/ul Critically high 4.0-11.0 [facility] Comment on above: Performed By: #### C BC #### [facility] [address] [place] [address] Dr. Shi Carter CBC AUTO DIFFon 11-22-2021 BASO # 0.1 103/ul Normal 0.0-0.1 [facility] Comment on above: Performed By: #### C BC #### [facility] [address] [place] [address] Dr. Shi Carter Basophils/100 WBC (Bld) 0.5 % Normal 0.2-2.0 [facility] Comment on above: Performed By: #### C BC #### [facility] [address] [place] [address] Dr. Shi Carter EO # 0.3 103/ul Normal 0.0-0.7 [facility] Comment on above: Performed By: #### C BC #### [facility] [address] [place] [address] Dr. Shi Carter Eosinophils/100 WBC (Bld) 2.1 % Normal 0.9-7.0 [facility] Comment on above: Performed By: #### C BC #### [facility] [address] [place] [address] Dr. Shi Carter Erythrocyte distribution width (RBC) [Ratio] 13.6 % Normal 11.0-15.0 [facility] Comment on above: Performed By: #### C BC #### [facility] [address] [place] [address] Dr. Shi Carter Hematocrit (Bld) [Volume fraction] 44.4 % Normal 42.0-54.0 [facility] Comment on above: Performed By: #### C BC #### [facility] [address] [place] [address] Dr. Shi Carter Hemoglobin (Bld) [Mass/Vol] 14.4 g/dL Normal 14.0-18.0 [facility] Comment on above: Performed By: #### C BC #### [facility] [address] [place] [address] Dr. Shi Carter IG # 0.35 10e3/ul Critically high 0.00-0.03 [facility] Comment on above: Performed By: #### C BC #### [facility] [address] [place] [address] Dr. Shi Carter IG % 2.3 % Critically high 0.0-0.5 [facility] Comment on above: Performed By: #### C BC #### [facility] [address] [place] [address] Dr. Shi Carter LYMPH # 2.4 103/ul Normal 1.2-3.8 [facility] Comment on above: Performed By: #### C BC #### [facility] [address] [place] [address] Dr. Shi Carter Lymphocytes/100 WBC (Bld) 15.8 % Critically low 20.5-60.0 [facility] Comment on above: Performed By: #### C BC #### [facility] [address] [place] [address] Dr. Shi Carter MANUAL DIFF REQ NO Normal [facility] Comment on above: Performed By: #### C BC #### [facility] [address] [place] [address] Dr. Shi Carter MCH (RBC) [Entitic mass] 27.0 pg Normal 25.9-34.0 [facility] Comment on above: Performed By: #### C BC #### [facility] [address] [place] [address] Dr. Shi Carter MCHC (RBC) [Mass/Vol] 32.4 g/dL Normal 29.9-35.2 [facility] Comment on above: Performed By: #### C BC #### [facility] [address] [place] [address] Dr. Shi Carter MCV (RBC) [Entitic vol] 83.3 fL Normal 80.0-94.0 [facility] Comment on above: Performed By: #### C BC #### [facility] [address] [place] [address] Dr. Shi Carter MONO # 1.0 103/ul Critically high 0.3-0.8 [facility] Comment on above: Performed By: #### C BC #### [facility] [address] [place] [address] Dr. Shi Carter Monocytes/100 WBC (Bld) 6.5 % Normal 1.7-12.0 [facility] Comment on above: Performed By: #### C BC #### [facility] [address] [place] [address] Dr. Shi Carter NEUT # 11.3 103/ul Critically high 1.4-6.5 [facility] Comment on above: Performed By: #### C BC #### [facility] [address] [place] [address] Dr. Shi Carter Neutrophils/100 WBC (Bld) 72.8 % Normal 43.0-75.0 [facility] Comment on above: Performed By: #### C BC #### [facility] [address] [place] [address] Dr. Shi Carter Platelet mean volume (Bld) [Entitic vol] 9.6 fL Normal 9.5-13.5 [facility] Comment on above: Performed By: #### C BC #### [facility] [address] [place] [address] Dr. Shi Carter PLT 343 103/ul Normal 150-450 [facility] Comment on above: Performed By: #### C BC #### [facility] [address] [place], [place] [id number] Dr. Shi Carter RBC 5.33 106/ul Normal 4.70-6.10 [facility] Comment on above: Performed By: #### C BC #### [facility] [address] [place] [address] Dr. Shi Carter WBC 15.5 103/ul Critically high 4.0-11.0 [facility] Comment on above: Performed By: #### C BC #### [facility] [address] [address] [address] Shi Carter GLYCOHEMOGLOBIN A1Con 2021 ADA RECOMMENDATION ADA THERAPEUTIC TARGET 6.0 - 7.0 ACTION SUGGESTED > 7.0 Normal [facility] Comment on above: Performed By: #### A 1C #### [facility] [address] [address] [address] Shi Carter Glucose [Mass/Vol] 117 mg/dL Normal [facility] Comment on above: Performed By: #### A 1C #### [facility] [address] [address] [address] Shi Carter HbA1c (Bld) [Mass fraction] 5.7 % Normal <=6.0 [facility] Comment on above: Performed By: #### A 1C #### [facility] [address] [place] [address] Dr. Shi Carter LIPID PROFILEon 11-22-2021 CHOL-HDL RATIO NORM SEE BELOW Normal [facility] Comment on above: Result Comment: 3.3 - 4.4 LOW RISK 4.4 - 7.1 AVERAGE RISK 7.1 - 11.0 MODERATE RISK >11.0 HIGH RISK Performed By: #### L IPID, CMP #### [facility] [address] [place] [address] Dr. Shi Carter Cholesterol [Mass/Vol] 163 mg/dL Normal <=200 [facility] Comment on above: Performed By: #### L IPID, CMP #### [facility] [address] [place] [address] Dr. Shi Carter Cholesterol in HDL [Mass/Vol] 44 mg/dL Normal [facility] Comment on above: Performed By: #### L IPID, CMP #### [facility] [address] [place] [address] Dr. Shi Carter Cholesterol in LDL [Mass/Vol] 97.6 mg/dL Normal [facility] Comment on above: Performed By: #### L IPID, CMP #### [facility] [address] [address] [address] Shi Carter Cholesterol.total/Cho lesterol in HDL [Mass ratio] 3.7 {ratio} Normal [facility] Comment on above: Performed By: #### L IPID, CMP #### [facility] [address] [place] [address] Dr. Shi Carter HDL NORMAL > or = 60 mg/dl - LOW CARDIOVASCULAR RISK <40 mg/dl - HIGH CARDIOVASCULAR RISK Normal [facility] Comment on above: Performed By: #### L IPID, CMP #### [facility] [address] [place] [address] Dr. Shi Carter LDL CALC NORMAL SEE BELOW Normal [facility] Comment on above: Result Comment: <100 mg/dl OPTIMAL 100 - 129 mg/dl NEAR OR ABOVE OPTIMAL 130 - 159 mg/dl BORDERLINE HIGH 160 - 189 mg/dl HIGH >190 mg/dl VERY HIGH Performed By: #### L IPID, CMP #### [facility] [address] [place] [address] Dr. Shi Carter Triglyceride [Mass/Vol] 107 mg/dL Normal <=150 [facility] Comment on above: Performed By: #### L IPID, CMP #### [facility] [address] [place] [address] Dr. Shi Carter VLDL CALC 21.4 mg/dL Normal [facility] Comment on above: Performed By: #### L IPID, CMP #### [facility] [address] [place] [address] Dr. Shi Carter PROF 14(COMP METB)on 022 Albumin [Mass/Vol] 3.2 g/dL Critically low 3.5-5.0 Th e [facility] Comment on above: Performed By: #### L IPID, CMP #### [facility] [address] [place] [address] Dr. Shi Carter Albumin/Globulin [Mass ratio] 0.8 {ratio} Normal [facility] Comment on above: Performed By: #### L IPID, CMP #### [facility] [address] [place] [address] Dr. Shi Carter ALP [Catalytic activity/Vol] 92 U/L Normal 38-126 [facility] Comment on above: Performed By: #### L IPID, CMP #### [facility] [address] [address] [address] Shi Carter ALT [Catalytic activity/Vol] 36 U/L Normal 21-72 [facility] Comment on above: Performed By: #### L IPID, CMP #### [facility] [address] [address] [address] Shi Carter Anion gap [Moles/Vol] 11.1 mmol/L Normal [facility] Comment on above: Performed By: #### L IPID, CMP #### [facility] [address] [place] [address] Dr. Shi Carter AST [Catalytic activity/Vol] 19 U/L Normal 17-59 [facility] Comment on above: Performed By: #### L IPID, CMP #### [facility] [address] [place] [address] Dr. Shi Carter Bilirubin [Mass/Vol] 0.2 mg/dL Normal 0.2-1.3 [facility] Comment on above: Performed By: #### L IPID, CMP #### [facility] [address] [place] [address] Dr. Shi Carter Calcium [Mass/Vol] 8.3 mg/dL Critically low 8.4-10.2 [facility] Comment on above: Performed By: #### L IPID, CMP #### [facility] [address] [place] [address] Dr. Shi Carter Chloride [Moles/Vol] 104 mmol/L Normal 98-107 [facility] Comment on above: Performed By: #### L IPID, CMP #### [facility] [address] [place] [address] Dr. Shi Carter CO2 [Moles/Vol] 29.3 mmol/L Normal 22.0-30.0 [facility] Comment on above: Performed By: #### L IPID, CMP #### [facility] [address] [place] [address] Dr. Shi Carter Creatinine [Mass/Vol] 0.99 mg/dL Normal 0.66-1.25 [facility] Comment on above: Performed By: #### L IPID, CMP #### [facility] [address] [place] [address] Dr. Shi Carter EGFR-AF SWISS >60 Normal >=60 [facility] Comment on above: Performed By: #### L IPID, CMP #### [facility] [address] [address] [address] Shi Carter EGFR-NON AF SWISS >60 Normal >=60 [facility] Comment on above: Performed By: #### L IPID, CMP #### [facility] [address] [place] [address] Dr. Shi Carter Globulin (S) [Mass/Vol] 4.1 g/dL Normal [facility] Comment on above: Performed By: #### L IPID, CMP #### [facility] [address] [place] [address] Dr. Shi Carter Glucose [Mass/Vol] 103 mg/dL Normal 74-106 [facility] Comment on above: Performed By: #### L IPID, CMP #### [facility] [address] [place] [address] Dr. Shi Carter Potassium [Moles/Vol] 4.4 mmol/L Normal 3.4-5.0 [facility] Comment on above: Performed By: #### L IPID, CMP #### [facility] [address] [place] [address] Dr. Shi Carter Protein [Mass/Vol] 7.3 g/dL Normal 6.1-8.2 [facility] Comment on above: Performed By: #### L IPID, CMP #### [facility] [address] [place] [address] Dr. Shi Carter Sodium [Moles/Vol] 140 mmol/L Normal 137-145 [facility] Comment on above: Performed By: #### L IPID, CMP #### [facility] [address] [place] [address] Dr. Shi Carter Urea nitrogen [Mass/Vol] 14.0 mg/dL Normal 9.0-20.0 [facility] Comment on above: Performed By: #### L IPID, CMP #### [facility] [address] [id number] Shi Carter Urea nitrogen/Creatinine [Mass ratio] 14.1 mg/mg Normal [facility] Comment on above: Performed By: #### L IPID, CMP #### [facility] [address] [address] [address] Shi Carter Vital Signs Date Time Vital Sign Value Performing Clinician Facility 11-07-2023 11:45-0500 Diastolic blood pressure 88 mm[Hg] Dominga Timmis [facility] 11-07-2023 11:45-0500 Heart rate 78 /min Dominga Timmis [facility] 11-07-2023 11:45-0500 Respiratory rate 20 /min Dominga Timmis [facility] 11-07-2023 11:45-0500 SaO2% (BldA) [Mass fraction] 99 % Dominga Timmis [facility] 11-07-2023 11:45-0500 Systolic blood pressure 128 mm[Hg] Dominga Timmis [facility] 11-07-2023 10:58-0500 Heart rate 74 /min Dominga Timmis [facility] 11-07-2023 10:58-0500 SaO2% (BldA) [Mass fraction] 98 % Dominga Timmis [facility] 11-07-2023 10:58-0500 Diastolic blood pressure 55 mm[Hg] Dominga Timmis [facility] 11-07-2023 10:58-0500 Mean blood pressure 75 mm[Hg] Dominga Timmis [facility] 11-07-2023 10:58-0500 Systolic blood pressure 117 mm[Hg] Dominga Timmis [facility] 11-07-2023 10:57-0500 Respiratory rate 18 /min Dominga Timmis [facility] 11-07-2023 10:51-0500 Diastolic blood pressure 73 mm[Hg] Dominga Timmis [facility] 11-07-2023 10:51-0500 Heart rate 71 /min Dominga Timmis [facility] 11-07-2023 10:51-0500 Mean blood pressure 92 mm[Hg] Dominga Timmis [facility] 11-07-2023 10:51-0500 Respiratory rate 11 /min Dominga Timmis [facility] 11-07-2023 10:51-0500 SaO2% (BldA) [Mass fraction] 96 % Dominga Timmis [facility] 11-07-2023 10:51-0500 Systolic blood pressure 131 mm[Hg] Dominga Timmis [facility] 11-07-2023 10:40-0500 Mean blood pressure 101 mm[Hg] Dominga Timmis [facility] 11-07-2023 10:40-0500 Respiratory rate 12 /min Dominga Timmis [facility] 11-07-2023 10:35-0500 Mean blood pressure 109 mm[Hg] Dominga Timmis [facility] 11-07-2023 10:35-0500 Respiratory rate 16 /min Dominga Timmis [facility] 11-07-2023 10:30-0500 FIO2 100 1 Dominga Timmis [facility] 11-07-2023 10:26-0500 Body temperature 97.34 [degF] Dominga Timmis [facility] 11-07-2023 10:25-0500 FIO2 100 1 Dominga Timmis [facility] 11-07-2023 10:24-0500 Respiratory rate 16 /min Dominga Timmis [facility] 11-07-2023 10:20-0500 FIO2 100 1 Dominga Timmis [facility] 11-07-2023 07:22-0500 Heart rate 74 /min Dominga Timmis [facility] 11-07-2023 07:22-0500 Mean blood pressure 91 mm[Hg] Dominga Timmis [facility] 11-07-2023 07:19-0500 Body temperature 97.52 [degF] Dominga Timmis [facility] 11-07-2023 07:19-0500 Mean blood pressure 95 mm[Hg] Dominga Timmis [facility] 10-22-2023 07:40-0500 Diastolic blood pressure 87 mm[Hg] Dominga Timmis [facility] 10-22-2023 07:40-0500 Heart rate 76 /min Dominga Timmis [facility] 10-22-2023 07:40-0500 Mean blood pressure 106 mm[Hg] Dominga Timmis [facility] 10-22-2023 07:40-0500 Systolic blood pressure 144 mm[Hg] Dominga Timmis [facility] 10-22-2023 07:40-0500 Heart rate 78 /min Dominga Timmis [facility] 10-22-2023 07:40-0500 SaO2% (BldA) [Mass fraction] 97 % Dominga Timmis [facility] 10-22-2023 07:40-0500 Diastolic blood pressure 84 mm[Hg] Dominga Timmis [facility] 10-22-2023 07:40-0500 Mean blood pressure 103 mm[Hg] Dominga Timmis [facility] 10-22-2023 07:40-0500 Systolic blood pressure 142 mm[Hg] Dominga Timmis [facility] 10-16-2023 13:45-0500 Body height 185.42 cm Sylvia Yuliana Other [facility] [employer] [facility] [facility] Other 10-16-2023 13:45-0500 Body mass index (BMI) [Ratio] 58.94 kg/m2 Sylvia Yuliana Other [facility] Other 10-16-2023 13:45-0500 Body temperature 96.8 [degF] Sylvia Yuliana Other [facility] Other 10-16-2023 13:45-0500 Body weight 202.67 kg Sylvia Yuliana Other [facility] Other 10-16-2023 13:45-0500 Diastolic blood pressure 90 mm[Hg] Sylvia Yuliana Other [facility] Other 10-16-2023 13:45-0500 Respiratory rate 18 /min Sylvia Bridges Other [facility] Other 10-16-2023 13:45-0500 SaO2% (BldA) [Mass fraction] 99 % Sylvia Bridges Other [facility] Other 10-16-2023 13:45-0500 Systolic blood pressure 134 mm[Hg] Sylvia Bridges Other [facility] Other 07-16-2023 09:25-0500 Body height 185.42 cm Sheeba Reina Other [facility] Other 07-16-2023 09:25-0500 Body mass index (BMI) [Ratio] 54.56 kg/m2 Sheeba Reina Other [facility] Other 07-16-2023 09:25-0500 Body temperature 98.8 [degF] Sheeba Reina Other [facility] Other 07-16-2023 09:25-0500 Body weight 187.61 kg Sheeba Reina Other [facility] Other 07-16-2023 09:25-0500 Diastolic blood pressure 78 mm[Hg] Sheeba Reina Other [facility] Other 07-16-2023 09:25-0500 Respiratory rate 18 /min Sheeba Reina Other [facility] Other 07-16-2023 09:25-0500 SaO2% (BldA) [Mass fraction] 97 % Sheeba Reina Other [facility] Other 07-16-2023 09:25-0500 Systolic blood pressure 118 mm[Hg] Sheeba Reina Other [facility] Other Encounters Encounter Date Encounter Type Care Provider Facility Start: 01-07-2024 End: 01-07-2024 ambulatory SHAIKH ALBERTO Not Available Start: 11-15-2023 End: 11-15-2023 ambulatory DOMINGA ROMERO Not Available Start: 11-07-2023 End: 11-07-2023 ambulatory Dominga Monteiros Facility:[facility] Start: 11-07-2023 End: 11-07-2023 Admission to same day surgery center Dominga Romero [facility] Start: 10-29-2023 End: 10-29-2023 ambulatory SHAIKH ALBERTO Not Available Start: 10-22-2023 Clinisync Result Encounter Dominga Romero MD Work Phone: [facility] Unsolicited Start: 10-22-2023 Clinisync Result Encounter oDminga Romero MD Work Phone: [facility] Unsolicited Start: 10-22-2023 End: 10-23-2023 ambulatory Dominga Romero Facility:[facility] Start: 10-22-2023 End: 10-22-2023 Patient encounter procedure Dominga Romero [facility] Start: 10-16-2023 End: 10-16-2023 ambulatory Sylvia Bridges Other [facility] Other Start: 10-16-2023 Office outpatient vi sit 15 minutes Sylvia Bridges [facility] [place] Start: 09-18-2023 End: 09-18-2023 ambulatory DOMINGA ROMERO Not Available Start: 09-17-2023 Patient encounter status Dominga Romero MD Work Phone: [facility] Start: 09-17-2023 End: 09-17-2023 ambulatory SHAIKH ALBERTO Not Available Start: 09-14-2023 End: 09-15-2023 ambulatory Dominga Deepika Romero Facility:[facility] Start: 09-14-2023 End: 09-14-2023 Patient encounter procedure Dominga Deepika Romero [facility] Start: 08-07-2023 End: 08-07-2023 ambulatory DOMINGAMAXIMINO ROMERO Not Available Start: 07-16-2023 End: 07-16-2023 ambulatory Sheeba Reina Other [place] [employer] Other Start: 07-16-2023 Office outpatient ne w 30 minutes Sheeba Reina [facility] [place] Start: 05-18-2023 End: 05-18-2023 Emergency department patient visit NON STAFF Facility:[facility] Start: 11-17-2022 End: 11-17-2022 ambulatory SHAIKH Deepika LEY Facility:[facility] Start: 12-04-2021 End: 12-05-2021 ambulatory SHAIKH Deepika LEY Facility:[facility] Start: 11-22-2021 End: 11-23-2021 ambulatory SHAIKH Deepika LEY Facility:[facility] Procedures Date Procedure Procedure Detail Performing Clinician Start: 11-07-2023 Endoscopic ethmoidec roberta with turbinectomy Dominga Romero Start: 10-22-2023 [facility] PT & PTT Dominga Romero MD Work Phone: Ethmoid sinusectomy Dominga T immis Lipoma (disorder) Dominga Livan mis Tonsillectomy Dominga Romero Plan of Treatment Date Care Activity Detail Author Start: 03-08-2024 Influenza vaccination Influenza Vacc ine (#1) [facility] Comment on above: Postponed from 05/10 (Patient Refused) Start: 11-15-2023 End: 11-15-2023 Patient encounter procedure 11/15/2023 8:30 AM EST Office Visit [facility] [address] [place] [address] Dominga Romero MD [address] [facility] [address] [place] [address] [facility] Start: 11-07-2023 End: 11-07-2023 Patient encounter procedure 11/07/2023 9:00 AM EST Procedure Visit [facility] Dominga Romero MD [address] [facility] [address] [place] [address] [facility] Start: 10-29-2023 End: 10-29-2023 Patient encounter procedure 10/29/2023 9:00 AM EST Office Visit [facility] [address] [place] [id number] Shaikh Ley MD [address] [place] [id number] [facility] Payers Date Payer Category Payer Self-pay 2023 Unknown [id number] 2022 Unknown [employer] [id number] 2022-Present [phone] [address] [address] [place] [address] [id number] 2022 Unknown [id number] 1986 Unknown [id number] 1986 Unknown [id number] [id number] 1986 Unknown [id number] [id number] 1986 Unknown [id number] [id number] 1986 Unknown [id number] [id number] 1986 Unknown [id number] [id number] 1986 Unknown [id number] 2.16.840.1.281123.3.579.2.125 9 1986 Unknown [id number] 2.16.840.1.758714.3.579.2.125 9 1986 Unknown [id number] 2.16.840.1.338019.3.579.2.125 9 1986 Unknown [id number] 2.16.840.1.527667.3.579.2.125 9 1986 Unknown [id number] 2.16.840.1.057755.3.579.2.125 9 1986 Unknown [id number] 2.16.840.1.699625.3.579.2.125 9 1959 Unknown [id number] 1959 Unknown [id number] Unknown [id number] [id number] Social History Date Type Detail Facility Unknown if ever smoked [facility] Other Start: 09-10-2023 End: 09-18-2023 Sex Assigned At [facility] Tobacco smoking status No Smokin g Status Entered [facility] Start: 09-17-2023 Tobacco smoking status ILIS Ex-smoker [facility] History of tobacco use Current smoker [...] To some extent [facility] (I/We) worried wheth er (my/our) food would run out before (I/we) got money to buy more. Never true [facility] In the past 12 month s, has lack of transportation kept you from medical appointments or from getting medications? No [facility] Start: 08-06-2023 Alcohol Comment caffeine: yes soda [facility] Start: 1985 Sex Assigned At Not on file [facility] Functional Status Date Assessment Result Facility 10-22-2023 Functional Status No [facility] Discharge instructions 11-07-2023 Note Date & Type Note Facility 11-07-2023 Hospital Discharg e instructions Patient Education 11/07/2023 11:23:51 Post Op Patient Instructions - FT (CUSTOM) 11/07/2023 11:23:47 Sinus Endoscopy, Care After Sinus Endoscopy, Care After After a sinus endoscopy, it is common to have: Discomfort in the sinus area. Some bleeding. Irritation or damage to the lining of the: ?Nose. ?Mouth. ?Throat. ?Sinuses. If you had treatments done during your procedure, you may also have: A headache. Congestion. Fluid coming from your nose. A dry nose. Follow these instructions at home: Your health care provider may give you more instructions. If you have problems, contact your health care provider. Medicines Take or use lncq-old-krsaknp and prescription medicines only as told by your health care provider. If you were prescribed an antibiotic medicine, use it as told by your health care provider. Do not stop using it even if you start to feel better. Use nose sprays and rinses as told by your health care provider. General instructions Avoid blowing your nose and sneezing. If you were given a sedative during your procedure, do not drive or use machines until your health care provider says that it is safe. A sedative is a medicine that helps you relax. Keep your head raised (elevated) for the first few nights after the procedure, or as told by your health care provider. This helps to decrease inflammation. Do not smoke or use any products that contain nicotine or tobacco. If you need help quitting, ask your health care provider. Return to your normal activities when your health care provider says that it is safe. Keep all follow-up visits. Contact a health care provider if: You have pain or discomfort that does not get better with bszx-zhh-[id number] medicine. You have a fever. You have more clear fluid or blood coming from your nose. You have pus or a bad smell coming from your nose. You have nausea. You start to vomit. Get help right away if: You have bleeding from your nose that does not stop. You have changes in your vision. You cannot stop vomiting. These symptoms may be an emergency. Get help right away. Call 911. Do not wait to see if the symptoms will go away. Do not drive yourself to the hospital. Summary After this procedure, it is common to have discomfort in the sinus area. If you were given an antibiotic medicine, use it as told by your health care provider. Do not stop using it even if you start to feel better. Avoid blowing your nose and sneezing after the procedure. Keep your head raised (elevated) for the first few nights after the procedure, or as told by your health care provider. This helps to decrease inflammation. Get help right away if you have bleeding from your nose that does not stop. This information is not intended to replace advice given to you by your health care provider. Make sure you discuss any questions you have with your health care provider. Document Revised: 08/15/2022 Document Reviewed: 08/15/2022 Elsevier Patient Education 2022 [employer] Follow Up Care 09/18/2023 09:39:14 With:Dominga Romero Address: [address] [place] [address] [address], [address] [place] [id number] Business (1) When:11/15/2023 [facility] History and physical note 02-12-2024 Note Date & Type Note Facility 10-21-2023 Note [id number] Evaluation note 10-16-2023 Note Date & Type [...] the ER for worsening symptoms or concerns. [facility] Other Evaluation note 07-16-2023 Note Date & [...] treatment plan. Patient left in stable condition [facility] Other History general Narrative - Reported 10-12-2015 Note Date & Type Note Facility 10-12-2015 History general N arrative - Reported Type Medical History EGD 10/12/2015- mild esophagus Surgical History Tonsilectomy Surgical History deviated septum repair Surgical History sinus surgery Hospitalization History see above [facility] Other History general Narrative - Reported 10-12-2015 Note Date & Type Note Facility 10-12-2015 History general N arrative - Reported Type Medical History EGD 10/12/2015- mild esophagus Surgical History Tonsilectomy Surgical History deviated septum repair Surgical History sinus surgery Surgical History sinus surgery Hospitalization History see above [facility] Other Evaluation + Plan note Note Date & Type Note Facility Evaluation + Plan note No data available for this section [facility] Evaluation + Plan note Note Date & Type Note Facility Evaluation + Plan note Future Appointments Appointment Date:11/07/2023 08:00:00 AM Scheduled Provider: Location:[facility] Appointment Type:Surgery FT [facility] Hospital Discharge instructions Note Date & Type Note Facility Hospital Discharge instructions No data available for this section [facility] Progress note Note Date & Type Note Facility Progress note No data available for this section [facility] Summary Purpose Family History No Family History Records FoundNo Family History Records Found No data available for this section No data available for this section No data available for this section No Family History Records FoundNo Family History Records Found Advance Directives No Advanced Directives Records FoundNo Advanced Directives Records FoundNo Advanced Directives Records FoundNo Advanced Directives Records Found Additional Source Comments (unrecognized sect ion and content) No Status Records FoundNo Status Records FoundNo Status Records FoundNo Status Records Found INFORMATION SOURCE (unrecogn ized section and content) DATE CREATED AUTHOR 11/21/2022 [facility] DATE CREATED AUTHOR AUTHOR'S ORGANIZ ATION 06/13/2023 [facility] DATE CREATED AUTHOR AUTHOR'S ORGANIZ ATION 11/16/2023 [facility] DATE CREATED AUTHOR AUTHOR'S ORGANIZ ATION 01/08/2024 [facility] EPIC REASON FOR VISIT (unrecogniz ed section and content) STUFFY, NOSE PLUG, DRAINING, SWOLLEN GLANDS,POSS INFECTED ABCESS IN GROIN AREA Care Teams (unrecognized sec tion and content) Personnel Name: SHAIKH LEY MD Address: Address[address] [place] [address] [employer] Relationship Specialty Start Date End Date Shaikh Ley MD [phone] (work) PCP - General Internal Medicine 07/01/23 FOR [...] BE BASED ON THE PRIMARY CLINICAL RECORDS. [employer] [facility]. provides no warranty or guarantee of the accuracy or completeness of information in this document.
[2024-01-11 01:37] LABS: Basophils Absolute Auto 0.1 10^3/uL (0.0-0.1); Basophils Percent Auto 0.5 % (0.2-2.0); Eosinophils Absolute Auto 0.2 10^3/uL (0.0-0.7); Eosinophils Percent Auto 1.6 % (0.9-7.0); Hematocrit 40.5 % (42.0-54.0); Immature Granulocytes Abs Auto 0.07 10^3/uL (0.00-0.03); Immature Granulocytes Pct Auto 0.5 % (0.0-0.5); Lymphocytes Absolute Auto 2.5 10^3/uL (1.2-3.8); Lymphocytes Percent Auto 17.9 % (20.5-60.0); Mean Corpuscular HGB Conc 32.1 g/dL (29.9-35.2); Mean Corpuscular Hemoglobin 26.2 pg (25.9-34.0); Mean Corpuscular Volume 81.5 fL (80.0-94.0); Mean Platelet Volume 9.1 fL (9.5-13.5); Neutrophils Absolute Auto 10.1 10^3/uL (1.4-6.5); Neutrophils Percent Auto 72.5 % (43.0-75.0); Platelet Count 317 10^3/uL (150-450); Red Blood Count 4.97 10^6/uL (4.70-6.10); Red Cell Distribution Width 13.3 % (11.0-15.0); White Blood Count 13.9 10^3/uL (4.0-11.0)
[2024-01-11 01:45] LABS: Anion Gap 10.6; BUN Creatinine Ratio 13.5; Carbon Dioxide 28.4 mmol/L (21.0-32.0); Chloride 102 mmol/L (98-107); Estimated GFR (African America >60 (>=60); Estimated GFR (Non-African Ame >60 (>=60); Glucose 94 mg/dL (74-106); Sodium 137 mmol/L (136-145)
== END 2024-01-11 02:19 | disposition home or self-care (01) ==
PROVIDERS: Emergency Provider Emergency Medicine; PCP Internal Medicine
DX: K62.5 Hemorrhage of anus and rectum (principal); E66.9 Obesity, unspecified; Z68.43 Body mass index [BMI] 50.0-59.9, adult; Z79.899 Other long term (current) drug therapy
CPT/HCPCS: 36415; 80048; 85025; 99283

== ENCOUNTER 2024-02-19 08:22 | Outpatient (OUT) | payer OTHER, SELFPAY ==
--- OUTSIDE RECORDS SUMMARY | 2024-02-19 08:31 | XMS_ITS | CCD ---
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 7.1 % Normal 1.7-12.0 [facility] Comment on above: Performed By: #### C BC #### [facility] [address] [address] [address] Shi Carter NEUT # 9.2 103/ul Critically high 1.4-6.5 [facility] Comment on above: Performed By: #### C BC #### [facility] [address] [place] [address] Dr. Shi Carter Neutrophils/100 WBC (Bld) 70.2 % Normal 43.0-75.0 [facility] Comment on above: Performed By: #### C BC #### [facility] [address] [place] [address] Dr. Shi Carter Platelet mean volume (Bld) [Entitic vol] 9.9 fL Normal 9.5-13.5 [facility] Comment on above: Performed By: #### C BC #### [facility] [address] [place] [address] Dr. Shi Carter PLT 291 103/ul Normal 150-450 [facility] Comment on above: Performed By: #### C BC #### [facility] [address] [place] [address] Dr. Shi Carter RBC 5.21 106/ul Normal 4.70-6.10 [facility] Comment on above: Performed By: #### C BC #### [facility] [address] [address] [address] Shi Carter WBC 13.1 103/ul Critically high 4.0-11.[address] [facility] Comment on above: Performed By: #### C BC #### [facility] [address] [place], [place] [address] ABD/PELV W CONon [...] by: IMTIAZ FONTANEZ Date: 2022-11-17 01:53 Normal [facility] LIPASEon 11-17-2022 Lipase [Catalytic activity/Vol] 86.0 U/L Normal 73.0-393.0 [facility] Comment on above: Performed By: #### C MARY KAY AHMADI LIPA #### [facility] [address] [place], [place] [address] Dr. Shi Carter PROF 14(COMP METB)on 023 Albumin [Mass/Vol] 3.7 g/dL Normal 3.4-5.0 [facility] Comment on above: Performed By: #### C MARY KAY AHMADI LIPA #### [facility] [address] [place], [place] [address] Dr. Shi Carter Albumin/Globulin [Mass ratio] 1.1 {ratio} Normal [facility] Comment on above: Performed By: #### C MP, MARY KAY, LIPA #### [facility] [address] [address] [address] Shi Carter ALP [Catalytic activity/Vol] 81 U/L Normal 46-116 [facility] Comment on above: Performed By: #### C MP, MARY KAY, LIPA #### [facility] [address] [address] [address] Shi Carter ALT [Catalytic activity/Vol] 41 U/L Normal 16-63 [facility] Comment on above: Performed By: #### C MP, MARY KAY, LIPA #### [facility] [address] [address] [address] Shi Carter Anion gap [Moles/Vol] 8.7 mmol/L Normal [facility] Comment on above: Performed By: #### C MP, MARY KAY, LIPA #### [facility] [address] [address] [address] Shi Carter AST [Catalytic activity/Vol] 19 U/L Normal 15-37 [facility] Comment on above: Performed By: #### C MP, MARY KAY, LIPA #### [facility] [address] [address] [address] Shi Carter Bilirubin [Mass/Vol] 0.2 mg/dL Normal 0.2-1.0 [facility] Comment on above: Performed By: #### C MP, MARY KAY, LIPA #### [facility] [address] [address] [address] Shi Carter Calcium [Mass/Vol] 9.0 mg/dL Normal 8.5-10.1 [facility] Comment on above: Performed By: #### C MP, MARY KAY, LIPA #### [facility] [address] [address] [address] Shi Carter Chloride [Moles/Vol] 104 mmol/L Normal 98-107 [facility] Comment on above: Performed By: #### C MP, MARY KAY, LIPA #### [facility] [address] [address] [address] Shi Carter CO2 [Moles/Vol] 29.4 mmol/L Normal 21.0-32.0 [facility] Comment on above: Performed By: #### C MARY KAY AHMADI, LIPA #### [facility] [address] [address] [address] Shi Carter Creatinine [Mass/Vol] 0.85 mg/dL Normal 0.70-1.30 [facility] Comment on above: Performed By: #### C MP MARY KAY, LIPA #### [facility] [address] [address] [address] Shi Carter EGFR-AF MAURITANIAN >60 Normal >=60 [facility] Comment on above: Performed By: #### C MARY KAY AHMADI, LIPA #### [facility] [address] [place] [address] Dr. Shi Carter EGFR-NON AF MAURITANIAN >60 Normal >=60 [facility] Comment on above: Performed By: #### C MARY KAY AHMADI, LIPA #### [facility] [address] [address] [address] Shi Carter Globulin (S) [Mass/Vol] 3.4 g/dL Normal [facility] Comment on above: Performed By: #### C MARY KAY AHMADI, LIPA #### [facility] [address] [place] [address] Dr. Shi Carter Glucose [Mass/Vol] 128 mg/dL Critically high 74-106 [facility] Comment on above: Performed By: #### C MARY KAY AHMADI, LIPA #### [facility] [address] [address] [address] Shi Carter Potassium [Moles/Vol] 4.1 mmol/L Normal 3.5-5.1 [facility] Comment on above: Performed By: #### C MARY KAY AHMADI, LIPA #### [facility] [address] [address] [address] Shi Carter Protein [Mass/Vol] 7.1 g/dL Normal 6.4-8.2 [facility] Comment on above: Performed By: #### C GALDINO MARY KAY, LIPA #### [facility] [address] [place] [address] Dr. Shi Carter Sodium [Moles/Vol] 138 mmol/L Normal 136-145 [facility] Comment on above: Performed By: #### C MARY KAY AHMADI LIPA #### [facility] [address] [place] [address] Dr. Shi Carter Urea nitrogen [Mass/Vol] 12.0 mg/dL Normal 7.0-18.0 [facility] Comment on above: Performed By: #### C MARY KAY AHMADI LIPA #### [facility] [address] [place] [address] Dr. Shi Carter Urea nitrogen/Creatinine [Mass ratio] 14.1 mg/mg Normal [facility] Comment on above: Performed By: #### C MARY KAY AHMADI LIPA #### [facility] [address] [place] [address] Dr. Shi Carter CBC AUTO DIFFon 12-04-2021 BASO # 0.1 103/ul Normal 0.0-0.1 [facility] Comment on above: Performed By: #### C BC #### [facility] [address] [place] [address] Dr. Shi Carter Basophils/100 WBC (Bld) 0.4 % Normal 0.2-2.0 [facility] Comment on above: Performed By: #### C BC #### [facility] [address] [place] [address] Dr. Shi Carter EO # 0.3 103/ul Normal 0.0-0.7 [facility] Comment on above: Performed By: #### C BC #### [facility] [address] [place] [address] Dr. Shi Carter Eosinophils/100 WBC (Bld) 2.3 % Normal 0.9-7.0 [facility] Comment on above: Performed By: #### C BC #### [facility] [address] [place] [address] Dr. Shi Carter Erythrocyte distribution width (RBC) [Ratio] 13.2 % Normal 11.0-15.0 [facility] Comment on above: Performed By: #### C BC #### [facility] [address] [address] [address] Shi Carter Hematocrit (Bld) [Volume fraction] 44.3 % Normal 42.0-54.0 [facility] Comment on above: Performed By: #### C BC #### [facility] [address] [address] [address] Shi Carter Hemoglobin (Bld) [Mass/Vol] 14.3 g/dL Normal 14.0-18.0 [facility] Comment on above: Performed By: #### C BC #### [facility] [address] [place] [address] Dr. Shi Carter IG # 0.15 10e3/ul Critically high 0.00-0.03 [facility] Comment on above: Performed By: #### C BC #### [facility] [address] [place] [address] Dr. Shi Carter IG % 1.2 % Critically high 0.0-0.5 [facility] Comment on above: Performed By: #### C BC #### [facility] [address] [place] [address] Dr. Shi Carter LYMPH # 2.9 103/ul Normal 1.2-3.8 [facility] Comment on above: Performed By: #### C BC #### [facility] [address] [place] [address] Dr. Shi Carter Lymphocytes/100 WBC (Bld) 23.3 % Normal 20.5-60.0 [facility] Comment on above: Performed By: #### C BC #### [facility] [address] [place] [address] Dr. Shi Carter MANUAL DIFF REQ NO Normal [facility] Comment on above: Performed By: #### C BC #### [facility] [address] [place] [address] Dr. Shi Carter MCH (RBC) [Entitic mass] 26.7 pg Normal 25.9-34.0 [facility] Comment on above: Performed By: #### C BC #### [facility] [address] [address] [address] Shi Carter MCHC (RBC) [Mass/Vol] 32.3 g/dL Normal 29.9-35.2 [facility] Comment on above: Performed By: #### C BC #### [facility] [address] [address] [address] Shi Carter MCV (RBC) [Entitic vol] 82.8 fL Normal 80.0-94.0 [facility] Comment on above: Performed By: #### C BC #### [facility] [address] [address] [address] Shi Carter MONO # 0.8 103/ul Normal 0.3-0.8 [facility] Comment on above: Performed By: #### C BC #### [facility] [address] [place] [address] Dr. Shi Carter Monocytes/100 WBC (Bld) 6.2 % Normal 1.7-12.0 [facility] Comment on above: Performed By: #### C BC #### [facility] [address] [place] [address] Dr. Shi Carter NEUT # 8.3 103/ul Critically high 1.4-6.5 [facility] Comment on above: Performed By: #### C BC #### [facility] [address] [place], [place] [id number] Dr. Shi Carter Neutrophils/100 WBC (Bld) 66.6 % Normal 43.0-75.0 [facility] Comment on above: Performed By: #### C BC #### [facility] [address] [place] [address] Dr. Shi Carter Platelet mean volume (Bld) [Entitic vol] 9.5 fL Normal 9.5-13.5 [facility] Comment on above: Performed By: #### C BC #### [facility] [address] [place] [address] Dr. Shi Carter PLT 359 103/ul Normal 150-450 [facility] Comment on above: Performed By: #### C BC #### [facility] [address] [address] [address] Shi Carter RBC 5.35 106/ul Normal 4.70-6.10 [facility] Comment on above: Performed By: #### C BC #### [facility] [address] [address] [address] Shi Carter WBC 12.4 103/ul Critically high 4.0-11.[address] [facility] Comment on above: Performed By: #### C BC #### [facility] [address] [address] [address] Shi Carter CBC AUTO DIFFon 11-22-2021 BASO # 0.1 103/ul Normal 0.0-0.1 [facility] Comment on above: Performed By: #### C BC #### [facility] [address] [place] [address] Dr. Shi Carter Basophils/100 WBC (Bld) 0.5 % Normal 0.2-2.0 [facility] Comment on above: Performed By: #### C BC #### [facility] [address] [place] [address] Dr. Shi Carter EO # 0.3 103/ul Normal 0.0-0.7 [facility] Comment on above: Performed By: #### C BC #### [facility] [address] [place] [address] Dr. Shi Carter Eosinophils/100 WBC (Bld) 2.1 % Normal 0.9-7.0 [facility] Comment on above: Performed By: #### C BC #### [facility] [address] [place] [address] Dr. Shi Carter Erythrocyte distribution width (RBC) [Ratio] 13.6 % Normal 11.0-15.0 [facility] Comment on above: Performed By: #### C BC #### [facility] [address] [place] [address] Dr. Shi Carter Hematocrit (Bld) [Volume fraction] 44.4 % Normal 42.0-54.0 [facility] Comment on above: Performed By: #### C BC #### [facility] [address] [place] [address] Dr. Shi Carter Hemoglobin (Bld) [Mass/Vol] 14.4 g/dL Normal 14.0-18.0 [facility] Comment on above: Performed By: #### C BC #### [facility] [address] [place] [address] Dr. Shi Carter IG # 0.35 10e3/ul Critically high 0.00-0.03 [facility] Comment on above: Performed By: #### C BC #### [facility] [address] [place] [address] Dr. Shi Carter IG % 2.3 % Critically high 0.0-0.5 [facility] Comment on above: Performed By: #### C BC #### [facility] [address] [place] [address] Dr. Shi Carter LYMPH # 2.4 103/ul Normal 1.2-3.8 [facility] Comment on above: Performed By: #### C BC #### [facility] [address] [place] [address] Dr. Shi Carter Lymphocytes/100 WBC (Bld) 15.8 % Critically low 20.5-60.0 [facility] Comment on above: Performed By: #### C BC #### [facility] [address] [place] [address] Dr. Shi Carter MANUAL DIFF REQ NO Normal [facility] Comment on above: Performed By: #### C BC #### [facility] [address] [place] [address] Dr. Shi Carter MCH (RBC) [Entitic mass] 27.0 pg Normal 25.9-34.0 [facility] Comment on above: Performed By: #### C BC #### [facility] [address] [place] [address] Dr. Sih Carter MCHC (RBC) [Mass/Vol] 32.4 g/dL Normal 29.9-35.2 [facility] Comment on above: Performed By: #### C BC #### [facility] [address] [place] [address] Dr. Shi Carter MCV (RBC) [Entitic vol] 83.3 fL Normal 80.0-94.0 [facility] Comment on above: Performed By: #### C BC #### [facility] [address] [address] [address] Shi Carter MONO # 1.0 103/ul Critically high 0.3-0.8 [facility] Comment on above: Performed By: #### C BC #### [facility] [address] [address] [address] Shi Carter Monocytes/100 WBC (Bld) 6.5 % Normal 1.7-12.0 [facility] Comment on above: Performed By: #### C BC #### [facility] [address] [place] [address] Dr. Shi Carter NEUT # 11.3 103/ul Critically high 1.4-6.5 [facility] Comment on above: Performed By: #### C BC #### [facility] [address] [place] [address] Dr. Shi Carter Neutrophils/100 WBC (Bld) 72.8 % Normal 43.0-75.0 [facility] Comment on above: Performed By: #### C BC #### [facility] [address] [place] [address] Dr. Shi Carter Platelet mean volume (Bld) [Entitic vol] 9.6 fL Normal 9.5-13.5 [facility] Comment on above: Performed By: #### C BC #### [facility] [address] [place] [address] Dr. Shi Carter PLT 343 103/ul Normal 150-450 [facility] Comment on above: Performed By: #### C BC #### [facility] [address] [place], [place] [id number] Dr. Shi Carter RBC 5.33 106/ul Normal 4.70-6.10 [facility] Comment on above: Performed By: #### C BC #### [facility] [address] [place] [address] Dr. Shi Carter WBC 15.5 103/ul Critically high 4.0-11.0 [facility] Comment on above: Performed By: #### C BC #### [facility] [address] [place] [address] Dr. Shi Carter GLYCOHEMOGLOBIN A1Con 2021 ADA RECOMMENDATION ADA THERAPEUTIC TARGET 6.0 - 7.0 ACTION SUGGESTED > 7.0 Normal [facility] Comment on above: Performed By: #### A 1C #### [facility] [address] [place] [address] Dr. Shi Carter Glucose [Mass/Vol] 117 mg/dL Normal [facility] Comment on above: Performed By: #### A 1C #### [facility] [address] [place] [address] Dr. Shi Carter HbA1c (Bld) [Mass fraction] 5.7 % Normal <=6.0 [facility] Comment on above: Performed By: #### A 1C #### [facility] [address] [place] [address] Dr. Shi Carter LIPID PROFILEon 11-22-2021 CHOL-HDL RATIO NORM SEE BELOW Normal [facility] Comment on above: Result Comment: 3.3 - 4.4 LOW RISK 4.4 - 7.1 AVERAGE RISK 7.1 - 11.0 MODERATE RISK >11.0 HIGH RISK Performed By: #### L IPID, CMP #### [facility] [address] [place] [address] Dr. Shi Carter Cholesterol [Mass/Vol] 163 mg/dL Normal <=200 [facility] Comment on above: Performed By: #### L IPID, CMP #### [facility] [address] [place] [address] Dr. Shi Carter Cholesterol in HDL [Mass/Vol] 44 mg/dL Normal [facility] Comment on above: Performed By: #### L IPID, CMP #### [facility] [address] [place] [address] Dr. Shi Carter Cholesterol in LDL [Mass/Vol] 97.6 mg/dL Normal [facility] Comment on above: Performed By: #### L IPID, CMP #### [facility] [address] [address] [address] Shi Carter Cholesterol.total/Cho lesterol in HDL [Mass ratio] 3.7 {ratio} Normal [facility] Comment on above: Performed By: #### L IPID, CMP #### [facility] [address] [address] [address] Shi Carter HDL NORMAL > or = 60 mg/dl - LOW CARDIOVASCULAR RISK <40 mg/dl - HIGH CARDIOVASCULAR RISK Normal [facility] Comment on above: Performed By: #### L IPID, CMP #### [facility] [address] [address] [address] Shi Carter LDL CALC NORMAL SEE BELOW Normal [facility] Comment on above: Result Comment: <100 mg/dl OPTIMAL 100 - 129 mg/dl NEAR OR ABOVE OPTIMAL 130 - 159 mg/dl BORDERLINE HIGH 160 - 189 mg/dl HIGH >190 mg/dl VERY HIGH Performed By: #### L IPID, CMP #### [facility] [address] [address] [address] Shi Carter Triglyceride [Mass/Vol] 107 mg/dL Normal <=150 [facility] Comment on above: Performed By: #### L IPID, CMP #### [facility] [address] [place] [address] Dr. Shi Carter VLDL CALC 21.4 mg/dL Normal [facility] Comment on above: Performed By: #### L IPID, CMP #### [facility] [address] [place] [address] Dr. Shi Carter PROF 14(COMP METB)on 022 Albumin [Mass/Vol] 3.2 g/dL Critically low 3.5-5.0 [facility] Comment on above: Performed By: #### L IPID, CMP #### [facility] [address] [place] [address] Dr. Shi Carter Albumin/Globulin [Mass ratio] 0.8 {ratio} Normal [facility] Comment on above: Performed By: #### L IPID, CMP #### [facility] [address] [place] [address] Dr. Shi Carter ALP [Catalytic activity/Vol] 92 U/L Normal 38-126 [facility] Comment on above: Performed By: #### L IPID, CMP #### [facility] [address] [address] [address] Shi Carter ALT [Catalytic activity/Vol] 36 U/L Normal 21-72 [facility] Comment on above: Performed By: #### L IPID, CMP #### [facility] [address] [address] [address] Shi Carter Anion gap [Moles/Vol] 11.1 mmol/L Normal [facility] Comment on above: Performed By: #### L IPID, CMP #### [facility] [address] [place] [address] Dr. Shi Carter AST [Catalytic activity/Vol] 19 U/L Normal 17-59 [facility] Comment on above: Performed By: #### L IPID, CMP #### [facility] [address] [place] [address] Dr. Shi Carter Bilirubin [Mass/Vol] 0.2 mg/dL Normal 0.2-1.3 [facility] Comment on above: Performed By: #### L IPID, CMP #### [facility] [address] [place] [address] Dr. Shi Carter Calcium [Mass/Vol] 8.3 mg/dL Critically low 8.4-10.2 [facility] Comment on above: Performed By: #### L IPID, CMP #### [facility] [address] [place] [address] Dr. Shi Carter Chloride [Moles/Vol] 104 mmol/L Normal 98-107 [facility] Comment on above: Performed By: #### L IPID, CMP #### [facility] [address] [place] [address] Dr. Shi Carter CO2 [Moles/Vol] 29.3 mmol/L Normal 22.0-30.0 [facility] Comment on above: Performed By: #### L IPID, CMP #### [facility] [address] [address] [address] Shi Carter Creatinine [Mass/Vol] 0.99 mg/dL Normal 0.66-1.25 [facility] Comment on above: Performed By: #### L IPID, CMP #### [facility] [address] [place] [address] Dr. Shi Carter EGFR-AF MAURITANIAN >60 Normal >=60 [facility] Comment on above: Performed By: #### L IPID, CMP #### [facility] [address] [address] [address] Shi Carter EGFR-NON AF MAURITANIAN >60 Normal >=60 [facility] Comment on above: Performed By: #### L IPID, CMP #### [facility] [address] [address] [address] Shi Carter Globulin (S) [Mass/Vol] 4.1 g/dL Normal [facility] Comment on above: Performed By: #### L IPID, CMP #### [facility] [address] [address] [address] Shi Carter Glucose [Mass/Vol] 103 mg/dL Normal 74-106 [facility] Comment on above: Performed By: #### L IPID, CMP #### [facility] [address] [place] [address] Dr. Shi Carter Potassium [Moles/Vol] 4.4 mmol/L Normal 3.4-5.0 [facility] Comment on above: Performed By: #### L IPID, CMP #### [facility] [address] [place] [address] Dr. Shi Carter Protein [Mass/Vol] 7.3 g/dL Normal 6.1-8.2 [facility] Comment on above: Performed By: #### L IPID, CMP #### [facility] [address] [place] [address] Dr. Shi Carter Sodium [Moles/Vol] 140 mmol/L Normal 137-145 [facility] Comment on above: Performed By: #### L IPID, CMP #### [facility] [address] [place] [address] Dr. Shi Carter Urea nitrogen [Mass/Vol] 14.0 mg/dL Normal 9.0-20.0 [facility] Comment on above: Performed By: #### L IPID, CMP #### [facility] [address] [place], [place] [address] Dr. Shi Carter Urea nitrogen/Creatinine [Mass ratio] 14.1 mg/mg Normal [facility] Comment on above: Performed By: #### L IPID, CMP #### [facility] [address] [address] [address] Shi Carter Vital Signs Date Time Vital Sign Value Performing Clinician Facility 11-07-2023 11:45-0500 Diastolic blood pressure 88 mm[Hg] Dominga Timmis [facility] 11-07-2023 11:45-0500 Heart rate 78 /min Dominga Timmis [facility] 11-07-2023 11:45-0500 Respiratory rate 20 /min Dominga Timmis [facility] 11-07-2023 11:45-0500 SaO2% (BldA) [Mass fraction] 99 % Dominga Timmis [facility] 11-07-2023 11:45-0500 Systolic blood pressure 128 mm[Hg] Dominga Timmis [facility] 11-07-2023 10:58-0500 Heart rate 74 /min Dominga Timmis [facility] 11-07-2023 10:58-0500 SaO2% (BldA) [Mass fraction] 98 % Dominga Timmis [facility] 11-07-2023 10:58-0500 Diastolic blood pressure 55 mm[Hg] Dominga Timmis [facility] 11-07-2023 10:58-0500 Mean blood pressure 75 mm[Hg] Dominga Timmis [facility] 11-07-2023 10:58-0500 Systolic blood pressure 117 mm[Hg] Dominga Timmis [facility] 11-07-2023 10:57-0500 Respiratory rate 18 /min Dominga Timmis [facility] 11-07-2023 10:51-0500 Diastolic blood pressure 73 mm[Hg] Dominga Timmis [facility] 11-07-2023 10:51-0500 Heart rate 71 /min Dominga Timmis [facility] 11-07-2023 10:51-0500 Mean blood pressure 92 mm[Hg] Dominga Timmis [facility] 11-07-2023 10:51-0500 Respiratory rate 11 /min Dominga Timmis [facility] 11-07-2023 10:51-0500 SaO2% (BldA) [Mass fraction] 96 % Dominga Timmis [facility] 11-07-2023 10:51-0500 Systolic blood pressure 131 mm[Hg] Dominga Timmis [facility] 11-07-2023 10:40-0500 Mean blood pressure 101 mm[Hg] Dominga Timmis [facility] 11-07-2023 10:40-0500 Respiratory rate 12 /min Dominga Timmis [facility] 11-07-2023 10:35-0500 Mean blood pressure 109 mm[Hg] Dominga Timmis [facility] 11-07-2023 10:35-0500 Respiratory rate 16 /min Dominga Timmis [facility] 11-07-2023 10:30-0500 FIO2 100 1 Dominga Timmis [facility] 11-07-2023 10:26-0500 Body temperature 97.34 [degF] Dominga Timmis [facility] 11-07-2023 10:25-0500 FIO2 100 1 Dominga Timmis [facility] 11-07-2023 10:24-0500 Respiratory rate 16 /min Dmoinga Timmis [facility] 11-07-2023 10:20-0500 FIO2 100 1 Dominga Timmis [facility] 11-07-2023 07:22-0500 Heart rate 74 /min Dominga Timmis [facility] 11-07-2023 07:22-0500 Mean blood pressure 91 mm[Hg] Dominga Timmis [facility] 11-07-2023 07:19-0500 Body temperature 97.52 [degF] Dominga Timmis [facility] 11-07-2023 07:19-0500 Mean blood pressure 95 mm[Hg] Dominga Timmis [facility] 10-22-2023 07:40-0500 Diastolic blood pressure 87 mm[Hg] Dominga Timmis [facility] 10-22-2023 07:40-0500 Heart rate 76 /min Dominga Timmis [facility] 10-22-2023 07:40-0500 Mean blood pressure 106 mm[Hg] Dominga Timmis [facility] 10-22-2023 07:40-0500 Systolic blood pressure 144 mm[Hg] Dominga Timmis [facility] 10-22-2023 07:40-0500 Heart rate 78 /min Dominga Timmis [facility] 10-22-2023 07:40-0500 SaO2% (BldA) [Mass fraction] 97 % Dominga Timmis [facility] 10-22-2023 07:40-0500 Diastolic blood pressure 84 mm[Hg] Dominga Timmis [facility] 10-22-2023 07:40-0500 Mean blood pressure 103 mm[Hg] Dominga Timmis [facility] 10-22-2023 07:40-0500 Systolic blood pressure 142 mm[Hg] Dominga Timmis [facility] 10-16-2023 13:45-0500 Body height 185.42 cm Sylvia Yuliana Other [facility] 10-16-2023 13:45-0500 Body mass index (BMI) [Ratio] 58.94 kg/m2 Sylvia Yuliana Other [facility] 10-16-2023 13:45-0500 Body temperature 96.8 [degF] Sylvia Yuliana Other [facility] 10-16-2023 13:45-0500 Body weight 202.67 kg Sylvia Yuliana Other [facility] Other 10-16-2023 13:45-0500 Diastolic blood pressure 90 mm[Hg] Sylvia Yuliana Other [facility] 10-16-2023 13:45-0500 Respiratory rate 18 /min Sylvia Yuliana Other [facility] Other 10-16-2023 13:45-0500 SaO2% (BldA) [Mass fraction] 99 % Sylvia Colonmond Other [facility] 10-16-2023 13:45-0500 Systolic blood pressure 134 mm[Hg] Sylvia Colonmond Other [facility] Other 07-16-2023 09:25-0500 Body height 185.42 cm Sheeba Reina Other [facility] Other 07-16-2023 09:25-0500 Body mass index (BMI) [Ratio] 54.56 kg/m2 Sheeba Reina Other [facility] Other 07-16-2023 09:25-0500 Body temperature 98.8 [degF] Sheeba Reina Other [facility] Other 07-16-2023 09:25-0500 Body weight 187.61 kg Sheeba Reina Other [facility] Other 07-16-2023 09:25-0500 Diastolic blood pressure 78 mm[Hg] Sheeba Reina Other [facility] Other 07-16-2023 09:25-0500 Respiratory rate 18 /min Sheeba Reina Other [facility] Other 07-16-2023 09:25-0500 SaO2% (BldA) [Mass fraction] 97 % Sheeba Reina Other [facility] Other 07-16-2023 09:25-0500 Systolic blood pressure 118 mm[Hg] Sheeba Reina Other [facility] Other Encounters Encounter Date Encounter Type Care Provider Facility Start: 01-07-2024 End: 01-07-2024 ambulatory SHAIKH POOJAD Not Available Start: 11-15-2023 End: 11-15-2023 ambulatory DOMINGA ROMERO Not Available Start: 11-07-2023 End: 11-07-2023 ambulatory Dominga Monteiros [place] [place]: 11-07-2023 End: 11-07-2023 Admission to same day surgery center Dominga Romero [facility] Start: 10-29-2023 End: 10-29-2023 ambulatory SHAIKH ALBERTO Not Available Start: 10-22-2023 Clinisync Result Encounter Dominga Romero MD Work Phone: [facility] Unsolicited Start: 10-22-2023 Clinisync Result Encounter Dominga Romero MD Work Phone: [facility] Unsolicited Start: 10-22-2023 End: 10-23-2023 ambulatory Dominga Monteiros [facility] Start: 10-22-2023 End: 10-22-2023 Patient encounter procedure Dominga Romero [facility] Start: 10-16-2023 End: 10-16-2023 ambulatory Sylvia Bridges Other [facility] Other Start: 10-16-2023 Office outpatient vi sit 15 minutes Sylvia Bridges [facility] Start: 09-18-2023 End: 09-18-2023 ambulatory DOMINGA ROMERO Not Available Start: 09-17-2023 Patient encounter status Dominga Romero MD Work Phone: [facility] Start: 09-17-2023 End: 09-17-2023 ambulatory SHAIKH POOJAD Not Available Start: 09-14-2023 End: 09-15-2023 ambulatory Domingamaximino Romero Facility[place] Start: 09-14-2023 End: 09-14-2023 Patient encounter procedure Domingamaximino Monteiroaugustina [facility] Start: 08-07-2023 End: 08-07-2023 ambulatory DOMINGAMAXIMINO ROMERO Not Available Start: 07-16-2023 End: 07-16-2023 ambulatory Sheeba Reina Other [facility] [employer] Other Start: 07-16-2023 Office outpatient ne w 30 minutes Sheeba Reina [facility] Start: 05-18-2023 End: 05-18-2023 Emergency department patient visit NON STAFF Facility:[facility] Start: 11-17-2022 End: 11-17-2022 ambulatory SHAIKH Deepika LEY Facility:[facility] Start: 12-04-2021 End: 12-05-2021 ambulatory BUTTERFIELD H FAWDIDIER Facility:[facility] Start: 11-22-2021 End: 11-23-2021 ambulatory SHAIKH Deepika LEY Facility:[facility] Procedures Date Procedure Procedure Detail Performing Clinician Start: 11-07-2023 Endoscopic ethmoidec roberta with turbinectomy Dominga Liconamarcios Start: 10-22-2023 [facility] [place] PTT Dominga Romero MD Work [...] [facility] [place] [address] [facility] [place] [id number] Dominga Romero MD [address] [facility] [address] [place] [address] [facility] Start: 11-07-2023 End: 11-07-2023 Patient encounter procedure 11/07/2023 9:00 AM EST Procedure Visit [facility] Dominga Romero MD [address] [facility] [address] [place] [address] [facility] Start: 10-29-2023 End: 10-29-2023 Patient encounter procedure 10/29/2023 9:00 AM EST Office Visit [facility] [address] [id number] Shaikh Ley MD [address] [place] [id number] [facility] Payers Date Payer Category Payer Self-pay 2023 Unknown [id number] 2022 Unknown [employer] [id number] 2022-Present [phone] [address] [address] [place] [address] [id number] 2022 Unknown [id number] 1986 Unknown [id number] [id number] 1986 Unknown [id number] 2.16.840.1.446809.3.579.2.593 1986 Unknown [id number] 2.16.840.1.923837.3.579.2.593 1986 Unknown [id number] 2.16.840.1.729374.3.579.2.727 1986 Unknown [id number] 2.16.840.1.755919.3.579.2.727 1986 Unknown [id number] 2.16.840.1.309605.3.579.2.727 1986 Unknown [id number] 2.16.840.1.403594.3.579.2.125 9 1986 Unknown [id number] 2.16.840.1.257815.3.579.2.125 9 1986 Unknown [id number] 2.16.840.1.003637.3.579.2.125 9 1986 Unknown [id number] 2.16.840.1.802806.3.579.2.125 9 1986 Unknown [id number] 2.16.840.1.539404.3.579.2.125 9 1986 Unknown [id number] 2.16.840.1.888430.3.579.2.125 9 1959 Unknown [id number] 1959 Unknown [id number] Unknown [id number] 2.16.840.1.196855.3.579.2.531 Social History Date Type Detail Facility Unknown if ever smoked [facility] Other Start: 09-10-2023 End: 09-18-2023 Sex Assigned At [facility] Tobacco smoking status No Smokin g Status Entered [facility] Start: 09-17-2023 Tobacco smoking status ALIS Ex-smoker [facility] History of tobacco use [...] Assessment Result Facility 10-22-2023 Functional Status No [facility] Discharge instructions 11-07-2023 Note Date & [...] health care provider. Medicines Take or use [id number] and prescription medicines only as told by [...] discomfort that does not get better with xfhk-nww-ecnmenu medicine. You have a fever. You have [...] Document Reviewed: 08/15/2022 Elsevier Patient Education 2022 [employer] Follow Up Care 09/18/2023 09:39:14 With:Dominga Romero Address: [address] [place] [address], [address] [place] [phone] (1) When:11/15/2023 [facility] History and physical note 10-21-2023 Note Date & Type Note Facility 10-21-2023 Note [id number] [facility] Evaluation note 10-16-2023 Note Date & [...] the ER for worsening symptoms or concerns. [facility] Other Evaluation note 07-16-2023 Note Date & [...] treatment plan. 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 Surgical History Tonsilectomy Surgical History deviated septum repair Surgical History sinus surgery Surgical History sinus surgery Hospitalization History see above [facility] Other Evaluation + Plan note Note Date & Type Note Facility Evaluation + Plan note No data available for this section [facility] Evaluation + Plan note Note Date & Type Note Facility Evaluation + Plan note Future Appointments Appointment Date:11/07/2023 08:00:00 AM Scheduled Provider: Location:[facility] Appointment Type:Surgery FT [facility] Hospital Discharge instructions Note Date & Type Note Facility Hospital Discharge instructions No data available for this section [facility] Progress note Note Date & Type Note Facility Progress note No data available for this section [facility] Summary Purpose Family History No Family [...] and content) DATE CREATED AUTHOR 11/21/2022 [facility] DATE CREATED AUTHOR AUTHOR'S ORGANIZ ATION 06/13/2023 [facility] DATE CREATED AUTHOR AUTHOR'S ORGANIZ ATION 11/16/2023 [facility] DATE CREATED AUTHOR AUTHOR'S ORGANIZ ATION 01/08/2024 [facility] EPIC REASON FOR VISIT (unrecogniz ed section and content) STUFFY, NOSE PLUG, DRAINING, SWOLLEN GLANDS,POSS INFECTED ABCESS IN GROIN AREA Care Teams (unrecognized sec tion and content) Personnel Name: SHAIKH LEY MD Address: Address: [address] [place], [place] [address] [address] [employer] Lining Closer Relationship Specialty Start Date End Date Shaikh [...] BE BASED ON THE PRIMARY CLINICAL RECORDS. [facility] [employer] [facility]. provides no warranty or guarantee of the accuracy or completeness of information in this document.
== END 2024-02-19 08:23 | disposition home or self-care (01) ==
LOC: LAB 08:23
PROVIDERS: PCP Internal Medicine; Visit Provider Otolaryngology
DX: J32.0 Chronic maxillary sinusitis (principal)
CPT/HCPCS: 36415

== ENCOUNTER 2024-03-05 09:48 | Outpatient (OUT) | payer OTHER, SELFPAY ==
--- OUTSIDE RECORDS SUMMARY | 2024-03-05 09:59 | XMS_ITS | CCD ---
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 [facility] [address] [address] [address] Shi Carter PLT 291 103/ul Normal 150-[address] [facility] Comment on above: Performed By: #### C BC #### [facility] [address] [address] [address] Shi Carter RBC 5.21 106/ul Normal 4.70-6.[address] [facility] Comment on above: Performed By: #### C BC #### [facility] [address] [address] [address] Shi Carter WBC 13.1 103/ul Critically high 4.0-11.0 [facility] Comment on above: Performed By: #### C BC #### [facility] [address] [address] ABD/PELV W CONon [...] by: IMTIAZ FONTANEZ Date: 2022-11-17 01:53 Normal [facility] LIPASEon 11-17-2022 Lipase [Catalytic activity/Vol] 86.0 U/L Normal 73.0-393.0 [facility] Comment on above: Performed By: #### C MARY KAY AHMADI LIPA #### [facility] [address] [address] [address] Shi Carter PROF 14(COMP METB)on 023 Albumin [Mass/Vol] 3.7 g/dL Normal 3.4-5.0 [facility] Comment on above: Performed By: #### C MARY KAY AHMADI LIPA #### [facility] [address] [address] [address] Shi Carter Albumin/Globulin [Mass ratio] 1.1 {ratio} Normal [facility] Comment on above: Performed By: #### C MARY KAY AHMADI, LIPA #### [facility] [address] [address] [address] Shi Carter ALP [Catalytic activity/Vol] 81 U/L Normal 46-116 [facility] Comment on above: Performed By: #### C MP, MARY KAY, LIPA #### [facility] [address] [address] [address] Shi Carter ALT [Catalytic activity/Vol] 41 U/L Normal 16-63 [facility] Comment on above: Performed By: #### C MP, MARY KAY, LIPA #### [facility] [address] [address] [address] Shi Carter Anion gap [Moles/Vol] 8.7 mmol/L Normal [facility] Comment on above: Performed By: #### C MP, MARY KAY, LIPA #### [facility] [address] [address] [address] Shi Carter AST [Catalytic activity/Vol] 19 U/L Normal 15-37 [facility] Comment on above: Performed By: #### C MP, MARY KAY, LIPA #### [facility] [address] [address] [address] Shi Carter Bilirubin [Mass/Vol] 0.2 mg/dL Normal 0.2-1.0 [facility] Comment on above: Performed By: #### C MP, MARY KAY, LIPA #### [facility] [address] [address] [address] Shi Carter Calcium [Mass/Vol] 9.0 mg/dL Normal 8.5-10.1 [facility] Comment on above: Performed By: #### C MP, MARY KAY, LIPA #### [facility] [address] [address] [address] Shi Carter Chloride [Moles/Vol] 104 mmol/L Normal 98-107 [facility] Comment on above: Performed By: #### C MP, MARY KAY, LIPA #### [facility] [address] [address] [address] Shi Carter CO2 [Moles/Vol] 29.4 mmol/L Normal 21.0-32.0 [facility] Comment on above: Performed By: #### C MP, MARY KAY, LIPA #### [facility] [address] [place] [address] Dr. Shi Carter Creatinine [Mass/Vol] 0.85 mg/dL Normal 0.70-1.30 [facility] Comment on above: Performed By: #### C MP, MARY KAY, LIPA #### [facility] [address] [address] [address] Shi Carter EGFR-AF GIBRALTARIAN >60 Normal >=60 [facility] Comment on above: Performed By: #### C MP, MARY KAY, LIPA #### [facility] [address] [place] [address] Dr. Shi Carter EGFR-NON AF GIBRALTARIAN >60 Normal >=60 [facility] Comment on above: Performed By: #### C MP, MARY KAY, LIPA #### [facility] [address] [place] [address] Dr. Shi Carter Globulin (S) [Mass/Vol] 3.4 g/dL Normal [facility] Comment on above: Performed By: #### C MP, MARY KAY, LIPA #### [facility] [address] [place] [address] Dr. Shi Carter Glucose [Mass/Vol] 128 mg/dL Critically high 74-106 [facility] Comment on above: Performed By: #### C MP, MARY KAY, LIPA #### [facility] [address] [place] [address] Dr. Shi Carter Potassium [Moles/Vol] 4.1 mmol/L Normal 3.5-5.1 [facility] Comment on above: Performed By: #### C MP, MARY KAY, LIPA #### [facility] [address] [place] [address] Dr. Shi Carter Protein [Mass/Vol] 7.1 g/dL Normal 6.4-8.2 [facility] Comment on above: Performed By: #### C MP, MARY KAY, LIPA #### [facility] [address] [place] [address] Dr. Shi Carter Sodium [Moles/Vol] 138 mmol/L Normal 136-145 [facility] Comment on above: Performed By: #### C MARY KAY AHMADI LIPA #### [facility] [address] [place] [address] Dr. Shi Carter Urea nitrogen [Mass/Vol] 12.0 mg/dL Normal 7.0-18.0 [facility] Comment on above: Performed By: #### C MARY KAY AHMADI LIPA #### [facility] [address] [place] [address] Dr. Shi Carter Urea nitrogen/Creatinine [Mass ratio] 14.1 mg/mg Normal [facility] Comment on above: Performed By: #### C MARY KAY AHMADI LIPA #### [facility] [address] [place] [address] Dr. Shi Carter CBC AUTO DIFFon 12-04-2021 BASO # 0.1 103/ul Normal 0.0-0.1 [facility] Comment on above: Performed By: #### C BC #### [facility] [address] [place] [address] Dr. Shi Carter Basophils/100 WBC (Bld) 0.4 % Normal 0.2-2.0 [facility] Comment on above: Performed By: #### C BC #### [facility] [address] [place] [address] Dr. Shi Carter EO # 0.3 103/ul Normal 0.0-0.7 [facility] Comment on above: Performed By: #### C BC #### [facility] [address] [place] [address] Dr. Shi Carter Eosinophils/100 WBC (Bld) 2.3 % Normal 0.9-7.0 [facility] Comment on above: Performed By: #### C BC #### [facility] [address] [place] [address] Dr. Shi Carter Erythrocyte distribution width (RBC) [Ratio] 13.2 % Normal 11.0-15.0 [facility] Comment on above: Performed By: #### C BC #### [facility] [address] [address] [address] Shi Carter Hematocrit (Bld) [Volume fraction] 44.3 % Normal 42.0-54.0 [facility] Comment on above: Performed By: #### C BC #### [facility] [address] [address] [address] Shi Carter Hemoglobin (Bld) [Mass/Vol] 14.3 g/dL Normal 14.0-18.0 [facility] Comment on above: Performed By: #### C BC #### [facility] [address] [place] [address] Dr. Shi Carter IG # 0.15 10e3/ul Critically high 0.00-0.03 [facility] Comment on above: Performed By: #### C BC #### [facility] [address] [place] [address] Dr. Shi Carter IG % 1.2 % Critically high 0.0-0.5 [facility] Comment on above: Performed By: #### C BC #### [facility] [address] [place] [address] Dr. Shi Carter LYMPH # 2.9 103/ul Normal 1.2-3.8 [facility] Comment on above: Performed By: #### C BC #### [facility] [address] [place] [address] Dr. Shi Carter Lymphocytes/100 WBC (Bld) 23.3 % Normal 20.5-60.0 [facility] Comment on above: Performed By: #### C BC #### [facility] [address] [place] [address] Dr. Shi Carter MANUAL DIFF REQ NO Normal [facility] Comment on above: Performed By: #### C BC #### [facility] [address] [place] [address] Dr. Shi Carter MCH (RBC) [Entitic mass] 26.7 pg Normal 25.9-34.0 [facility] Comment on above: Performed By: #### C BC #### [facility] [address] [place] [address] Dr. Shi Carter MCHC (RBC) [Mass/Vol] 32.3 g/dL Normal 29.9-35.[address] [facility] Comment on above: Performed By: #### C BC #### [facility] [address] [address] [address] Shi Carter MCV (RBC) [Entitic vol] 82.8 fL Normal 80.0-94.[address] [facility] Comment on above: Performed By: #### C BC #### [facility] [address] [address] [address] Shi Carter MONO # 0.8 103/ul Normal 0.3-0.[address] [facility] Comment on above: Performed By: #### C BC #### [facility] [address] [place] [address] Dr. Shi Carter Monocytes/100 WBC (Bld) 6.2 % Normal 1.7-12.[address] [facility] Comment on above: Performed By: #### C BC #### [facility] [address] [place] [address] Dr. Shi Carter NEUT # 8.3 103/ul Critically high 1.4-6.5 [facility] Comment on above: Performed By: #### C BC #### [facility] [address] [place] [address] Dr. Shi Carter Neutrophils/100 WBC (Bld) 66.6 % Normal 43.0-75.[address] [facility] Comment on above: Performed By: #### C BC #### [facility] [address] [place] [address] Dr. Shi Carter Platelet mean volume (Bld) [Entitic vol] 9.5 fL Normal 9.5-13.[address] [facility] Comment on above: Performed By: #### C BC #### [facility] [address] [address] [address] Shi Carter PLT 359 103/ul Normal 150-[address] [facility] Comment on above: Performed By: #### C BC #### [facility] [address] [address] [address] Shi Carter RBC 5.35 106/ul Normal 4.70-6.[address] [facility] Comment on above: Performed By: #### C BC #### [facility] [address] [place] [address] Dr. Shi Carter WBC 12.4 103/ul Critically high 4.0-11.0 [facility] Comment on above: Performed By: #### C BC #### [facility] [address] [place] [address] Dr. Shi Carter CBC AUTO DIFFon 11-22-2021 BASO # 0.1 103/ul Normal 0.0-0.1 [facility] Comment on above: Performed By: #### C BC #### [facility] [address] [place] [address] Dr. Shi Carter Basophils/100 WBC (Bld) 0.5 % Normal 0.2-2.0 [facility] Comment on above: Performed By: #### C BC #### [facility] [address] [place] [address] Dr. Shi Carter EO # 0.3 103/ul Normal 0.0-0.7 [facility] Comment on above: Performed By: #### C BC #### [facility] [address] [place] [address] Dr. Shi Carter Eosinophils/100 WBC (Bld) 2.1 % Normal 0.9-7.0 [facility] Comment on above: Performed By: #### C BC #### [facility] [address] [place] [address] Dr. Shi Carter Erythrocyte distribution width (RBC) [Ratio] 13.6 % Normal 11.0-15.0 [facility] Comment on above: Performed By: #### C BC #### [facility] [address] [place] [address] Dr. Shi Carter Hematocrit (Bld) [Volume fraction] 44.4 % Normal 42.0-54.0 [facility] Comment on above: Performed By: #### C BC #### [facility] [address] [place] [address] Dr. Shi Carter Hemoglobin (Bld) [Mass/Vol] 14.4 g/dL Normal 14.0-18.0 [facility] Comment on above: Performed By: #### C BC #### [facility] [address] [place] [address] Dr. Shi Carter IG # 0.35 10e3/ul Critically high 0.00-0.03 [facility] Comment on above: Performed By: #### C BC #### [facility] [address] [place] [address] Dr. Shi Carter IG % 2.3 % Critically high 0.0-0.5 [facility] Comment on above: Performed By: #### C BC #### [facility] [address] [place] [address] Dr. Shi Carter LYMPH # 2.4 103/ul Normal 1.2-3.8 [facility] Comment on above: Performed By: #### C BC #### [facility] [address] [place] [address] Dr. hSi Carter Lymphocytes/100 WBC (Bld) 15.8 % Critically low 20.5-60.0 [facility] Comment on above: Performed By: #### C BC #### [facility] [address] [place] [address] Dr. Shi Carter MANUAL DIFF REQ NO Normal [facility] Comment on above: Performed By: #### C BC #### [facility] [address] [place] [address] Dr. Shi Carter MCH (RBC) [Entitic mass] 27.0 pg Normal 25.9-34.0 [facility] Comment on above: Performed By: #### C BC #### [facility] [address] [place] [address] Dr. Shi Carter MCHC (RBC) [Mass/Vol] 32.4 g/dL Normal 29.9-35.2 [facility] Comment on above: Performed By: #### C BC #### [facility] [address] [place] [address] Dr. Shi Carter MCV (RBC) [Entitic vol] 83.3 fL Normal 80.0-94.[address] [facility] Comment on above: Performed By: #### C BC #### [facility] [address] [place] [address] Dr. Shi Carter MONO # 1.0 103/ul Critically high 0.3-0.8 [facility] Comment on above: Performed By: #### C BC #### [facility] [address] [place] [address] Dr. Shi Carter Monocytes/100 WBC (Bld) 6.5 % Normal 1.7-12.0 [facility] Comment on above: Performed By: #### C BC #### [facility] [address] [place] [address] Dr. Shi Carter NEUT # 11.3 103/ul Critically high 1.4-6.5 [facility] Comment on above: Performed By: #### C BC #### [facility] [address] [place] [address] Dr. Shi Carter Neutrophils/100 WBC (Bld) 72.8 % Normal 43.0-75.[address] [facility] Comment on above: Performed By: #### C BC #### [facility] [address] [place] [address] Dr. Shi Carter Platelet mean volume (Bld) [Entitic vol] 9.6 fL Normal 9.5-13.[address] [facility] Comment on above: Performed By: #### C BC #### [facility] [address] [place] [address] Dr. Shi Carter PLT 343 103/ul Normal 150-[address] [facility] Comment on above: Performed By: #### C BC #### [facility] [address] [place], [place] [id number] Dr. Shi Carter RBC 5.33 106/ul Normal 4.70-6.[address] [facility] Comment on above: Performed By: #### C BC #### [facility] [address] [place] [address] Dr. Shi Carter WBC 15.5 103/ul Critically high 4.0-11.0 [facility] Comment on above: Performed By: #### C BC #### [facility] [address] [address] [address] Shi Carter GLYCOHEMOGLOBIN A1Con 2021 ADA RECOMMENDATION ADA THERAPEUTIC TARGET 6.0 - 7.0 ACTION SUGGESTED > 7.0 Normal [facility] Comment on above: Performed By: #### A 1C #### [facility] [address] [address] [address] Shi Carter Glucose [Mass/Vol] 117 mg/dL Normal [facility] Comment on above: Performed By: #### A 1C #### [facility] [address] [address] [address] Shi Carter HbA1c (Bld) [Mass fraction] 5.7 % Normal <=6.0 [facility] Comment on above: Performed By: #### A 1C #### [facility] [address] [place] [address] Dr. Shi Carter LIPID PROFILEon 11-22-2021 CHOL-HDL RATIO NORM SEE BELOW Normal [facility] Comment on above: Result Comment: 3.3 - 4.4 LOW RISK 4.4 - 7.1 AVERAGE RISK 7.1 - 11.0 MODERATE RISK >11.0 HIGH RISK Performed By: #### L IPID, CMP #### [facility] [address] [place] [address] Dr. Shi Carter Cholesterol [Mass/Vol] 163 mg/dL Normal <=200 [facility] Comment on above: Performed By: #### L IPID, CMP #### [facility] [address] [place] [address] Dr. Shi Carter Cholesterol in HDL [Mass/Vol] 44 mg/dL Normal [facility] Comment on above: Performed By: #### L IPID, CMP #### [facility] [address] [place] [address] Dr. Shi Carter Cholesterol in LDL [Mass/Vol] 97.6 mg/dL Normal [facility] Comment on above: Performed By: #### L IPID, CMP #### [facility] [address] [address] [address] Shi Carter Cholesterol.total/Cho lesterol in HDL [Mass ratio] 3.7 {ratio} Normal [facility] Comment on above: Performed By: #### L IPID, CMP #### [facility] [address] [place] [address] Dr. Shi Carter HDL NORMAL > or = 60 mg/dl - LOW CARDIOVASCULAR RISK <40 mg/dl - HIGH CARDIOVASCULAR RISK Normal [facility] Comment on above: Performed By: #### L IPID, CMP #### [facility] [address] [place] [address] Dr. Shi Carter LDL CALC NORMAL SEE BELOW Normal [facility] Comment on above: Result Comment: <100 mg/dl OPTIMAL 100 - 129 mg/dl NEAR OR ABOVE OPTIMAL 130 - 159 mg/dl BORDERLINE HIGH 160 - 189 mg/dl HIGH >190 mg/dl VERY HIGH Performed By: #### L IPID, CMP #### [facility] [address] [place] [address] Dr. Shi Carter Triglyceride [Mass/Vol] 107 mg/dL Normal <=150 [facility] Comment on above: Performed By: #### L IPID, CMP #### [facility] [address] [place] [address] Dr. Shi Carter VLDL CALC 21.4 mg/dL Normal [facility] Comment on above: Performed By: #### L IPID, CMP #### [facility] [address] [place] [address] Dr. Shi Carter PROF 14(COMP METB)on 022 Albumin [Mass/Vol] 3.2 g/dL Critically low 3.5-5.[address] [facility] Comment on above: Performed By: #### L IPID, CMP #### [facility] [address] [place] [address] Dr. Shi Carter Albumin/Globulin [Mass ratio] 0.8 {ratio} Normal [facility] Comment on above: Performed By: #### L IPID, CMP #### [facility] [address] [place] [address] Dr. Shi Carter ALP [Catalytic activity/Vol] 92 U/L Normal 38-126 [facility] Comment on above: Performed By: #### L IPID, CMP #### [facility] [address] [address] [address] Shi Carter ALT [Catalytic activity/Vol] 36 U/L Normal 21-72 [facility] Comment on above: Performed By: #### L IPID, CMP #### [facility] [address] [address] [address] Shi Carter Anion gap [Moles/Vol] 11.1 mmol/L Normal [facility] Comment on above: Performed By: #### L IPID, CMP #### [facility] [address] [place] [address] Dr. Shi Carter AST [Catalytic activity/Vol] 19 U/L Normal 17-59 [facility] Comment on above: Performed By: #### L IPID, CMP #### [facility] [address] [place] [address] Dr. Shi Carter Bilirubin [Mass/Vol] 0.2 mg/dL Normal 0.2-1.3 [facility] Comment on above: Performed By: #### L IPID, CMP #### [facility] [address] [place] [address] Dr. Shi Carter Calcium [Mass/Vol] 8.3 mg/dL Critically low 8.4-10.2 [facility] Comment on above: Performed By: #### L IPID, CMP #### [facility] [address] [place] [address] Dr. Shi Carter Chloride [Moles/Vol] 104 mmol/L Normal 98-107 [facility] Comment on above: Performed By: #### L IPID, CMP #### [facility] [address] [place] [address] Dr. Shi Carter CO2 [Moles/Vol] 29.3 mmol/L Normal 22.0-30.0 [facility] Comment on above: Performed By: #### L IPID, CMP #### [facility] [address] [place] [address] Dr. Shi Carter Creatinine [Mass/Vol] 0.99 mg/dL Normal 0.66-1.25 [facility] Comment on above: Performed By: #### L IPID, CMP #### [facility] [address] [place] [address] Dr. Shi Carter EGFR-AF GIBRALTARIAN >60 Normal >=60 [facility] Comment on above: Performed By: #### L IPID, CMP #### [facility] [address] [address] [address] Shi Carter EGFR-NON AF GIBRALTARIAN >60 Normal >=60 [facility] Comment on above: Performed By: #### L IPID, CMP #### [facility] [address] [place] [address] Dr. Shi Carter Globulin (S) [Mass/Vol] 4.1 g/dL Normal [facility] Comment on above: Performed By: #### L IPID, CMP #### [facility] [address] [place] [address] Dr. Shi Carter Glucose [Mass/Vol] 103 mg/dL Normal 74-106 [facility] Comment on above: Performed By: #### L IPID, CMP #### [facility] [address] [place] [address] Dr. Shi Carter Potassium [Moles/Vol] 4.4 mmol/L Normal 3.4-5.0 [facility] Comment on above: Performed By: #### L IPID, CMP #### [facility] [address] [place] [address] Dr. Shi Carter Protein [Mass/Vol] 7.3 g/dL Normal 6.1-8.[address] [facility] Comment on above: Performed By: #### L IPID, CMP #### [facility] [address] [place] [address] Dr. Shi Carter Sodium [Moles/Vol] 140 mmol/L Normal 137-[address] [facility] Comment on above: Performed By: #### L IPID, CMP #### [facility] [address] [place] [address] Dr. Shi Carter Urea nitrogen [Mass/Vol] 14.0 mg/dL Normal 9.0-20.0 [facility] Comment on above: Performed By: #### L IPID, CMP #### [facility] [id number] Shi Carter Urea nitrogen/Creatinine [Mass ratio] 14.1 mg/mg Normal [facility] Comment on above: Performed By: #### L IPID, CMP #### [facility] [address] [address] [address] Shi Carter Vital Signs Date Time Vital Sign Value Performing Clinician Facility 11-07-2023 11:45-0500 Diastolic blood pressure 88 mm[Hg] Dominga Timmis [facility] 11-07-2023 11:45-0500 Heart rate 78 /min Dominga Timmis [facility] 11-07-2023 11:45-0500 Respiratory rate 20 /min Dominga Timmis [facility] 11-07-2023 11:45-0500 SaO2% (BldA) [Mass fraction] 99 % Dominga Timmis [facility] 11-07-2023 11:45-0500 Systolic blood pressure 128 mm[Hg] Dominag Timmis [facility] 11-07-2023 10:58-0500 Heart rate 74 /min Dominga Timmis [facility] 11-07-2023 10:58-0500 SaO2% (BldA) [Mass fraction] 98 % Dominga Timmis [facility] 11-07-2023 10:58-0500 Diastolic blood pressure 55 mm[Hg] Dominga Timmis [facility] 11-07-2023 10:58-0500 Mean blood pressure 75 mm[Hg] Dominga Timmis [facility] 11-07-2023 10:58-0500 Systolic blood pressure 117 mm[Hg] Dominga Timmis [facility] 11-07-2023 10:57-0500 Respiratory rate 18 /min Dominga Timmis [facility] 11-07-2023 10:51-0500 Diastolic blood pressure 73 mm[Hg] Dominga Timmis [facility] 11-07-2023 10:51-0500 Heart rate 71 /min Dominga Timmis [facility] 11-07-2023 10:51-0500 Mean blood pressure 92 mm[Hg] Dominga Timmis [facility] 11-07-2023 10:51-0500 Respiratory rate 11 /min Dominga Timmis [facility] 11-07-2023 10:51-0500 SaO2% (BldA) [Mass fraction] 96 % Dominga Timmis [facility] 11-07-2023 10:51-0500 Systolic blood pressure 131 mm[Hg] Dominga Timmis [facility] 11-07-2023 10:40-0500 Mean blood pressure 101 mm[Hg] Dominga Timmis [facility] 11-07-2023 10:40-0500 Respiratory rate 12 /min Dominga Timmis [facility] 11-07-2023 10:35-0500 Mean blood pressure 109 mm[Hg] Dominga Timmis [facility] 11-07-2023 10:35-0500 Respiratory rate 16 /min Dominga Timmis [facility] 11-07-2023 10:30-0500 FIO2 100 1 Dominga Timmis [facility] 11-07-2023 10:26-0500 Body temperature 97.34 [degF] Dominga Timmis [facility] 11-07-2023 10:25-0500 FIO2 100 1 Dominga Timmis [facility] 11-07-2023 10:24-0500 Respiratory rate 16 /min Dominga Timmis [facility] 11-07-2023 10:20-0500 FIO2 100 1 Dominga Timmis [facility] 11-07-2023 07:22-0500 Heart rate 74 /min Dominga Timmis [facility] 11-07-2023 07:22-0500 Mean blood pressure 91 mm[Hg] Dominga Timmis [facility] 11-07-2023 07:19-0500 Body temperature 97.52 [degF] Dominga Timmis [facility] 11-07-2023 07:19-0500 Mean blood pressure 95 mm[Hg] Dominga Timmis [facility] 10-22-2023 07:40-0500 Diastolic blood pressure 87 mm[Hg] Dominga Timmis [facility] 10-22-2023 07:40-0500 Heart rate 76 /min Dominga Timmis [facility] 10-22-2023 07:40-0500 Mean blood pressure 106 mm[Hg] Dominga Timmis [facility] 10-22-2023 07:40-0500 Systolic blood pressure 144 mm[Hg] Dominga Timmis [facility] 10-22-2023 07:40-0500 Heart rate 78 /min Dominga Timmis [facility] 10-22-2023 07:40-0500 SaO2% (BldA) [Mass fraction] 97 % Dominga Timmis [facility] 10-22-2023 07:40-0500 Diastolic blood pressure 84 mm[Hg] Dominga Timmis [facility] 10-22-2023 07:40-0500 Mean blood pressure 103 mm[Hg] Dominga Timmis [facility] 10-22-2023 07:40-0500 Systolic blood pressure 142 mm[Hg] Dominga Timmis [facility] 10-16-2023 13:45-0500 Body height 185.42 cm Sylvia Yuliana Other [employer] Other 10-16-2023 13:45-0500 Body mass index (BMI) [Ratio] 58.94 kg/m2 Sylvia Yuliana Other [employer] Other 10-16-2023 13:45-0500 Body temperature 96.8 [degF] Sylvia Yuliana Other [employer] Other 10-16-2023 13:45-0500 Body weight 202.67 kg Sylvia Yuliana Other [employer] Other 10-16-2023 13:45-0500 Diastolic blood pressure 90 mm[Hg] Sylvia Yuliana Other [employer] Other 10-16-2023 13:45-0500 Respiratory rate 18 /min Sylvia Bridges Other [employer] Other 10-16-2023 13:45-0500 SaO2% (BldA) [Mass fraction] 99 % Sylvia Bridges Other [employer] Other 10-16-2023 13:45-0500 Systolic blood pressure 134 mm[Hg] Sylvia Bridges Other [employer] Other 07-16-2023 09:25-0500 Body height 185.42 cm Sheeba Reina Other [employer] Other 07-16-2023 09:25-0500 Body mass index (BMI) [Ratio] 54.56 kg/m2 Sheeba Reina Other [employer] Other 07-16-2023 09:25-0500 Body temperature 98.8 [degF] Sheeba Reina Other [employer] Other 07-16-2023 09:25-0500 Body weight 187.61 kg Sheeba Reina Other [employer] Other 07-16-2023 09:25-0500 Diastolic blood pressure 78 mm[Hg] Sheeba Reina Other [employer] Other 07-16-2023 09:25-0500 Respiratory rate 18 /min Sheeba Reina Other [employer] Other 07-16-2023 09:25-0500 SaO2% (BldA) [Mass fraction] 97 % Sheeba Reina Other [employer] Other 07-16-2023 09:25-0500 Systolic blood pressure 118 mm[Hg] Sheeba Reina Other [employer] Other Encounters Encounter Date Encounter Type Care Provider Facility Start: 02-19-2024 End: 02-19-2024 ambulatory DOMINGA GOFFS Not Available Start: 01-07-2024 End: 01-07-2024 ambulatory SHAIKH POOJAD Not Available Start: 11-15-2023 End: 11-15-2023 ambulatory DOMINGA Poe TIMMIS Not Available Start: 11-07-2023 End: 11-07-2023 ambulatory Dominga H Timmis Facility:[facility] Start: 11-07-2023 End: 11-07-2023 Admission to same day surgery center Dominga Conner [facility] Start: 10-29-2023 End: 10-29-2023 ambulatory SHAIKH ALBERTO Not Available Start: 10-22-2023 Clinisync Result Encounter Dominga Conner MD Work Phone: [facility] Unsolicited Start: 10-22-2023 Clinisync Result Encounter Dominga Conner MD Work Phone: [facility] Unsolicited Start: 10-22-2023 End: 10-23-2023 ambulatory Dominga Liconamis Facility:[facility] Start: 10-22-2023 End: 10-22-2023 Patient encounter procedure Dominga H Nick [facility] Start: 10-16-2023 End: 10-16-2023 ambulatory Sylvia Bridges Other [employer] Other Start: 10-16-2023 Office outpatient vi sit 15 minutes Sylvia Bridges [facility] Start: 09-18-2023 End: 09-18-2023 ambulatory DOMINGA GOFFS Not Available Start: 09-17-2023 Patient encounter status Dominga Conner MD Work Phone: [facility] Start: 09-17-2023 End: 09-17-2023 ambulatory SHAIKH ALBERTO Not Available Start: 09-14-2023 End: 09-15-2023 ambulatory Dominga Deepika Nick Facility:[facility] Start: 09-14-2023 End: 09-14-2023 Patient encounter procedure Dominga Conner [facility] Start: 08-07-2023 End: 08-07-2023 ambulatory DOMINGA H NICK Not Available Start: 07-16-2023 End: 07-16-2023 ambulatory Sheeba Reina Other [employer] Other Start: 07-16-2023 Office outpatient ne w 30 minutes Sheeba Reina [facility] Start: 05-18-2023 End: 05-18-2023 Emergency department patient visit NON STAFF Facility:[facility] Start: 11-17-2022 End: 11-17-2022 ambulatory SHAIKH Deepika LEY Facility:[facility] Start: 12-04-2021 End: 12-05-2021 ambulatory SHAIKH Deepika FARockWAD Facility:[facility] Start: 11-22-2021 End: 11-23-2021 ambulatory SHAIKH Deepika VICTORDIDIER Facility:[facility] Procedures Date Procedure Procedure Detail Performing Clinician Start: 11-07-2023 Endoscopic ethmoidec roberta with turbinectomy Dominga Conner Start: 10-22-2023 [facility] PT & PTT Dominga Conner MD Work Phone: Ethmoid sinusectomy Dominga T immis Lipoma (disorder) Dominga Livan mis Tonsillectomy Dominga Conner Plan of Treatment Date Care Activity Detail Author Start: 03-08-2024 Influenza vaccination Influenza Vacc ine (#1) [facility] Comment on above: Postponed from 05/10 (Patient Refused) Start: 11-15-2023 End: 11-15-2023 Patient encounter procedure 11/15/2023 8:30 AM EST Office Visit [facility] [address] [place] [id number] Dominga Conner MD [address] [facility] [address] [place] [address] [facility] Start: 11-07-2023 End: 11-07-2023 Patient encounter procedure 11/07/2023 9:00 AM EST Procedure Visit [facility] Dominga Conner MD [address] [facility] [address] [place] [address] [facility] Start: 10-29-2023 End: 10-29-2023 Patient encounter procedure 10/29/2023 9:00 AM EST Office Visit [facility] [address] [place] [id number] Shaikh Ley MD [address] [place] [address] [facility] Payers Date Payer Category Payer Self-pay 2023 Unknown [id number] 2022 Unknown [employer] [id number] 2022-Present [phone] [address] [address] [place] [address] [id number] 2022 Unknown [id number] 1986 Unknown [id number] 2.16.840.1.341674.3.579.2.593 1986 Unknown [id number] 2.16.840.1.082179.3.579.2.593 1986 Unknown [id number] 2.16.840.1.337456.3.579.2.593 1986 Unknown [id number] 2.16.840.1.309694.3.579.2.727 1986 Unknown [id number] 2.16.840.1.763412.3.579.2.727 1986 Unknown [id number] 2.16.840.1.430657.3.579.2.727 1986 Unknown [id number] 2.16.840.1.782698.3.579.2.125 9 1986 Unknown [id number] 2.16.840.1.292697.3.579.2.125 9 1986 Unknown [id number] 2.16.840.1.570359.3.579.2.125 9 1986 Unknown [id number] 2.16.840.1.873598.3.579.2.125 9 1986 Unknown [id number] 2.16.840.1.064861.3.579.2.125 9 1986 Unknown [id number] 2.16.840.1.304741.3.579.2.125 9 1986 Unknown [id number] 2.16.840.1.171909.3.579.2.125 9 1959 Unknown [id number] 1959 Unknown [id number] Unknown [id number] 2.16.840.1.182838.3.579.2.531 Social History Date Type Detail Facility Unknown if ever smoked [employer] Other Start: 09-10-2023 End: 09-18-2023 Sex Assigned At [facility] Tobacco smoking status No Smokin g Status Entered [facility] Start: 09-17-2023 Tobacco smoking status NHIS Ex-smoker [facility] History of tobacco use Current smoker [facility] History of tobacco use Cigarette Smoker [facility] Start: 09-17-2023 Tobacco use and exposure Smokeless tobacco non-user [facility] Start: 09-18-2023 Alcohol intake Ex-drinker (finding) [facility] Start: 09-10-2023 End: 09-18-2023 History of Social function [facility] Within the last year , [...] got money to buy more. Never true [facility] In the past 12 month s, has lack of transportation kept you from medical appointments or from getting medications? No [facility] Start: 08-06-2023 Alcohol Comment caffeine: yes soda [facility] Start: 1985 Sex Assigned At Not on file [facility] Functional Status Date Assessment Result Facility 10-22-2023 Functional Status No [facility] Hospital Discharge instructions 11-07-2023 Note Date [...] health care provider. Medicines Take or use rlkv-oqe-gkclzjf and prescription medicines only as told by [...] discomfort that does not get better with tfre-ebj-ytirexv medicine. You have a fever. You have [...] provider. Document Revised: 08/15/2022 Document Reviewed: 08/15/2022 [employer] Patient Education 2022 [employer]. Follow Up Care 09/18/2023 09:39:14 With:Dominga Conner Address: [address] [place] [address] 3, [address] [place] [phone] Business (1) When:11/15/2023 [facility] History and physical note 10-21-2023 Note Date & Type Note Facility 10-21-2023 Note [id number] 8#1.00[facility] Evaluation note 10-16-2023 Note Date & [...] the ER for worsening symptoms or concerns. [employer] Other Evaluation note 07-16-2023 Note Date & [...] treatment plan. Patient left in stable condition [employer] Other History general Narrative - Reported 10-12-2015 Note Date & Type Note Facility 10-12-2015 History general N arrative - Reported Type Medical History EGD 10/12/2015- mild esophagus Surgical History Tonsilectomy Surgical History deviated septum repair Surgical History sinus surgery Hospitalization History see above [employer] [facility] [email or web address] Other History general Narrative - Reported 10-12-2015 Note Date & Type Note Facility 10-12-2015 History general N arrative - Reported Type Medical History EGD 10/12/2015- mild esophagus Surgical History Tonsilectomy Surgical History deviated septum repair Surgical History sinus surgery Surgical History sinus surgery Hospitalization History see above [employer] Other Evaluation + Plan note Note Date & Type Note Facility Evaluation + Plan note No data available for this section [facility] Evaluation + Plan note Note Date & Type Note Facility Evaluation + Plan note Future Appointments Appointment Date:11/07/2023 08:00:00 AM Scheduled Provider: Location:[facility] Appointment Type:Surgery FT [facility] Hospital Discharge instructions Note Date & Type Note Facility Hospital Discharge instructions No data available for this section [facility] Progress note Note Date & Type Note Facility Progress note No data available for this section [facility] Summary Purpose Family History No Family History [...] content) DATE CREATED AUTHOR 11/21/2022 [facility] DATE CREATED AUTHOR AUTHOR'S ORGANIZ ATION 06/13/2023 [facility] DATE CREATED AUTHOR AUTHOR'S ORGANIZ ATION 11/16/2023 [facility] DATE CREATED AUTHOR AUTHOR'S ORGANIZ ATION 02/20/2024 [facility] d[facility] Specialists EPIC REASON FOR VISIT (unrecogniz ed section and content) STUFFY, NOSE PLUG, DRAINING, SWOLLEN GLANDS,POSS INFECTED ABCESS IN GROIN AREA Care Teams (unrecognized sec tion and content) Personnel Name: SHAIKH LEY MD Address: Address: [address] [place] [address] [employer] Relationship Specialty Start Date End Date Shaikh [...] BE BASED ON THE PRIMARY CLINICAL RECORDS. [employer] [facility]. provides no warranty or guarantee of the accuracy or completeness of information in this document.
[2024-03-05 10:28] LABS: Basophils Absolute Auto 0.1 10^3/uL (0.0-0.1); Basophils Percent Auto 0.5 % (0.2-2.0); Eosinophils Absolute Auto 0.3 10^3/uL (0.0-0.7); Eosinophils Percent Auto 1.8 % (0.9-7.0); Hematocrit 42.3 % (42.0-54.0); Hemoglobin 13.5 g/dL (14.0-18.0); Immature Granulocytes Abs Auto 0.19 10^3/uL (0.00-0.03); Immature Granulocytes Pct Auto 1.4 % (0.0-0.5); Lymphocytes Absolute Auto 2.2 10^3/uL (1.2-3.8); Lymphocytes Percent Auto 16.6 % (20.5-60.0); Mean Corpuscular HGB Conc 31.9 g/dL (29.9-35.2); Mean Corpuscular Hemoglobin 26.1 pg (25.9-34.0); Mean Corpuscular Volume 81.8 fL (80.0-94.0); Mean Platelet Volume 9.6 fL (9.5-13.5); Monocytes Absolute Auto 0.8 10^3/uL (0.3-0.8); Monocytes Percent Auto 5.8 % (1.7-12.0); Neutrophils Percent Auto 73.9 % (43.0-75.0); Platelet Count 327 10^3/uL (150-450); Red Blood Count 5.17 10^6/uL (4.70-6.10); Red Cell Distribution Width 14.1 % (11.0-15.0); White Blood Count 13.5 10^3/uL (4.0-11.0)
[2024-03-05 11:22] LABS: Alanine Aminotransferase 33 U/L (16-63); Albumin Globulin Ratio 0.8; Alkaline Phosphatase 79 U/L (46-116); Anion Gap 10.7; Aspartate Amino Transferase 15 U/L (15-37); BUN Creatinine Ratio 16.7; Bilirubin Total 0.4 mg/dL (0.2-1.0); Calcium 8.4 mg/dL (8.5-10.1); Carbon Dioxide 28.5 mmol/L (21.0-32.0); Chloride 104 mmol/L (98-107); Estimated GFR (African America >60 (>=60); Estimated GFR (Non-African Ame >60 (>=60); Globulin 3.9 g/dL; Glucose 115 mg/dL (74-106); Potassium 4.2 mmol/L (3.5-5.1); Sodium 139 mmol/L (136-145); Total Protein 6.9 g/dL (6.4-8.2)
== END 2024-03-05 09:49 | disposition home or self-care (01) ==
LOC: LAB 09:48
PROVIDERS: PCP Internal Medicine; Visit Provider Internal Medicine
DX: I10 Essential (primary) hypertension (principal)
CPT/HCPCS: 36415; 80053; 85025

== ENCOUNTER 2025-06-09 16:34 | Outpatient (OUT) | payer OTHER, SELFPAY ==
--- OUTSIDE RECORDS SUMMARY | 2025-04-05 15:21 | XMS_ITS ---
Author Name Auto Generated Organization OHIP Care Team Providers Care Assistant Manager [employer] Name Role Phone ANJEL DUKE Primary Care Unavailabl Gita Boyer Attending Unavailable IMTIAZ BOUDREAUX Attending Unavailable ANJEL DUKE Attending Unavailabl SHAWN Alonzo Attending Unavailable ANJEL DUKE Attending Unavailabl e PROBLEMS No Problem Records Found PROCEDURES No Procedure Records Found RESULTS No Result Records Found ALLERGIES DATE TYPE / CODE NAME / CODE REACTION SEVERITY SOURCE /[id number](SNOME D CT) No Known Medication Allergies [facility] ENCOUNTERS ADMIT/DISCHARGE ACCOUNT NUMBER ADMITTING ENCOUNTER CLASS LOCATION SOURCE 04/05/2025/ 5 [id number] Ambulatory Building:[facility] 07/29/2024/ 4 [id number] Ambulatory Building:[facility] 07/21/2024/ 4 [id number] Ambulatory Building:[facility] 06/29/2024/ 4 [id number] Ambulatory Building:[facility] 06/19/2024/ 4 [id number] Ambulatory EU Ash ing:EU Jamie: Exam 2 [facility] PAYERS ENCOUNTER GUARANTOR PAYER SUBSCRIBER SOURCE 04/05/2025 NEAL LAGUNASDOB: [place] [address]Zja: (HP) Primary [facility] Number: [id number] Date:2022-09-09 NEAL LAGUNASDOB: [id number] [place] [address] [facility] EPIC 07/29/2024 NEAL HUNTVINSDOB: [place] [address]Lxa: (HP) Primary Insurance:[employer] icy Number: [id number] Date:2022-09-09 NEAL HUNTVINSDOB: [id number] [place] [address] [facility] EPIC 07/21/2024 NEAL HUNTVINSDOB: [place] [address]Lxn: (HP) [facility] Number: [id number] Date:2022-09-09 NEAL HUNTVINSDOB: [id number] [place] [address] [facility] EPIC 06/29/2024 NEAL HUNTVINSDOB: [place] [address]Hoa: (HP) Primary Insurance:[employer] olicy Number: [id number] Date:2022-09-09 NEAL HUNTVINSDOB: [id number] [place] [address] [facility] EPIC 06/19/2024 NEAL SOUZA: [id number] [place]: ~(52 4 (HP) Primary Insurance:[employer] Benefits[employer] Number: [id number] Date:[id number] [address] [address]YI: NEAL MAY [facility]
--- OUTSIDE RECORDS SUMMARY | 2025-06-09 16:37 | XMS_ITS | Encounter Summary ---
Author Organization [facility] Address [address] [place] [address] Care Team Providers Care Willow Machine Operator Name Role Phone Shaikh DENNIS Ley Primary Care Provider [phone] Shaikh DENNIS Ley Primary Care Provider [phone] Manish Reed MD Primary Care Provider [phone] Anabell Ireland EXTRACTIVE METALLURGIST Unavailable [phone] Unallocated, Noms Provider Primary Care Provi jonathon Manish Reed MD Primary Care Provider [phone] Encounter Details Date Type Department Care Team (Late st Contact Info) Description 09/14/2023 Clinisync Result Encounter [facility] External Department Unsolicited Dominga Conner MD [address] [place] [address] Social History Tobacco Use Types Packs/Day Years Used Date Smoking Tobacco: Never Smokeless Tobacco: Never Alcohol Use Standard Drinks/Week Comments Not Currently 2 (1 standard drink = 0.6 oz pur e alcohol) caffeine: yes soda Humiliation, Afraid, Rape, and Kick questionnair e Answer Date Recorded Within the last year, have y ou been afraid of your partner or ex-partner? No 09/10/2023 Within the last year, have y ou been humiliated or emotionally abused in other ways by your partner or ex-partner? No Within the last year, have y ou been kicked, hit, slapped, or otherwise physically hurt by your partner or ex-partner? No 09/10/2023 Within the last year, have y ou been raped or forced to have any kind of sexual activity by your partner or ex-partner? No 09/10/2023 Social Connection and Isolation Panel [NHANES] A nswer Date Recorded In a typical week, how many times do you talk on the phone with family, friends, or neighbors? Twice a week 09/10/2023 How often do you get together with friends or re latives? Once a week 09/10/2023 How often do you attend orthodoxy or latter day serv ices? Never 09/10/2023 Do you belong to any clubs o r organizations such as orthodoxy groups, unions, fraternal or athletic groups, or school groups? No 09/10/2023 How often do you attend meet ings of the clubs or organizations you belong to? Never 09/10/2023 Are you , , di vorced, , never , or living with a partner? 09/10/2023 AUDIT-C Answer Date Recorded Q1: How often do you have a drink containing alc ohol? 2-4 times a month 09/17/2023 Q2: How many drinks containi ng alcohol do you have on a typical day when you are drinking? 1 or 2 09/17/2023 Q3: How often do you have si x or more drinks on one occasion? Never 09/17/2023 Overall Financial Resource Strain (CARDIA) Answe r Date Recorded How hard is it for you to pa y for the very basics like food, housing, medical care, and heating? Hard 09/10/2023 [facility] - Occupational Stress Questionnaire Answer Date Recorded Do you feel stress - tense, restless, nervous, or anxious, or unable to sleep at night because your mind is troubled all the time - these days? To some extent 09/10/2023 Exercise Vital Sign Answer Date Recorde d On average, how many days pe r week do you engage in moderate to strenuous exercise (like a brisk walk)? 1 day 09/10/2023 On average, how many minutes do you engage in exercise at this level? 40 min 09/10/2023 Hunger Vital Sign Answer Date Recorded Within the past 12 months, y ou worried that your food would run out before you got the money to buy more. Never true 09/10/19 24 Within the past 12 months, t he food you bought just didn't last and you didn't have money to get more. Never true 09/10/2023 PRAPARE - Transportation Answer Date Re corded In the past 12 months, has l ack of transportation kept you from medical appointments or from getting medications? No 10/2023 In the past 12 months, has l ack of transportation kept you from meetings, work, or from getting things needed for daily living? No 09/10/2023 Housing Stability Vital Sign Answer Jonathan e Recorded In the last 12 months, was t here a time when you were not able to pay the mortgage or rent on time? No 09/10/2023 In the last 12 months, how many places have you lived? 1 09/10/2023 In the last 12 months, was t here a time when you did not have a steady place to sleep or slept in a usp (including now)? No 09/10/2023 Sex and Gender Information Value Date Recorded Sex Assigned at Not on file Legal Sex Male 6:39 PM EDT Gender Identity Not on file Sexual Orientation Not on file documented as of this encounter Functional Status * Audit-C Score Answer Date of Assessment Author 2 09/17/2023 11:57 PM Spencer Mario * Question Answer Date of Assessment Author Q1: How often do you have a drink containing alcohol? 2-4 times a month 09/17/2023 11:57 PM Spencer Mario Q2: How many drinks containing alcohol do you have on a typical day when you are drinking? 1 or 2 09/17/2023 11:57 PM Spencer Mario Q3: How often do you have six or more drinks on one occasion? Never 09/17/2023 11:57 PM Spencer Mario documented as of this encounter Plan of Treatment Not on file documented as of this encounter Procedures Procedure Name Priority Date/Time Associated Diagnosis Comments CT MAXILLOFACIAL W/O CONTRAST 09/14/2023 7:43 AM EST documented in this encounter Results * CT MAXILLOFACIAL W/O CONTRAST (09/14/2023 7:43 AM EST) Anatomical Region Laterality Modality Other 09/14/2023 7:43 AM EST Narrative 09/15/2023 12:30 PM EST Exam Date/Time: 09/14/2023 08:00 EST Reason for [...] Yo Zelaya MD Transcribed by: ALESSIO Technologist: VALERIE Procedure Note Radiology, Radiologist, - 09/16/2023 Exam Date/Time: 09/14/2023 08:00 EST Reason for Exam: J32.4 Report IMPRESSION: BILATERAL MAXILLARY SINUSITIS, GREATER ON BRIGHT. REMOTE RIGHT MAXILLARY ANTRECTOMY. ETHMOID SINUSITIS. CT MAXILLOFACIAL WITHOUT INTRAVENOUS CONTRAST MEDIUM. History: Chronic sinusitis. Technical factors: CT maxillofacial was obtained and formatted as 1.0 mmcontiguous axial images. Sagittal and coronal reconstruction obtained duringpostprocessing. Comparison: None. Findings: Bilateral frontal sinuses patent. [...] Bilateral ocular globes, extraocular muscles, optic nerves, retrobulbarfat without anomaly. All CT scans at this facility use dose modulation, iterativereconstruction, and/or weight based dosing when appropriate to reduce radiation dose to as low asreasonably achievable. Ordering Provider: Dominga Conner FINAL REPORT Dictated: 09/15/2023 12:27 pm Yo Zelaya MD Signed (Electronic Signature): 09/15/2023 12:27 pm Signed by: Yo Zelaya MD Transcribed by: ALESSIO Technologist: VALERIE us Dominga Conner MD [facility] Final Resul t documented in this encounter Visit Diagnoses Not on filedocumented in this encounter Care Teams Willow Machine Operator Relationship Specialty Start Date End Date Shaikh Ley MD PCP - General Internal Medicine 07/01/23 10/28/23 Shaikh Ley MD PCP - General Internal Medicine 10/29/23 05/31/24 Manish Reed MD PCP - General Family Medicine 06/01/24 06/28/24 Unallocated, [place] [address] [place], [place] [address] [address] PCP - General Family Medicine 06/30/24 07/08/24 Manish Reed MD PCP - General Family Medicine 07/09/24 Anabell Ireland NP Nurse Practitioner Family Medicine 06/01/24 documented as of this encounter
--- OUTSIDE RECORDS SUMMARY | 2025-06-09 16:37 | XMS_ITS | Encounter Summary ---
Author Organization [facility] Address [address] [place] [address] Care Team Providers Care Adult Neuropsychologist Name Role Phone Anabell Ireland SOFTWARE QUALITY ENGINEER Unavailable [phone] Manish Reed MD Primary Care Provider [phone] Encounter Details Date Type Department Care Team (Late st Contact Info) Description 07/14/2024 Abstract [facility] [address] [place] [address] Anabell Ireland NP Social History Tobacco Use Types Packs/Day Years Used Date Smoking Tobacco: Former Cigarettes Passive Smoke Exposure: Past Smokeless Tobacco: Never Alcohol Use Standard Drinks/Week [...] week 09/10/2023 How often do you attend faith or episcopalian serv ices? Never 09/10/2023 Do you belong to any clubs o r organizations such as faith groups, unions, fraternal or athletic groups, or school groups? No 09/10/2023 How often do you attend meet ings of the clubs or organizations you belong to? Never 09/10/2023 Are you , , di vorced, , never , or living with a partner? 09/10/2023 AUDIT-C Answer Date Recorded Q1: How often do you have a drink containing alc ohol? 2-4 times a month 11/05/2023 Q2: How many drinks containi ng alcohol do you have on a typical day when you are drinking? 1 or 2 11/05/2023 Q3: How often do you have si x or more drinks on one occasion? Never 11/05/2023 Overall Financial Resource Strain (CARDIA) Answe r Date Recorded How hard is it for you to pa y for the very basics like food, housing, medical care, and heating? Hard 09/10/2023 PHQ-2 Answer Date Recorded Patient Health Questionnaire-2 Score 0 04/09/2024 [facility] - Occupational Stress [...] place to sleep or slept in a retirement (including now)? No 09/10/2023 Sex and Gender Information Value Date Recorded Sex Assigned at Not on file Legal Sex Male 6:39 PM EDT Gender Identity Not on file Sexual Orientation Not on file documented as of this encounter Plan of Treatment Not on file documented as of this encounter Visit Diagnoses Not on filedocumented in this encounter Care Teams Adult Neuropsychologist Relationship Specialty Start Date End Date Manish Reed MD PCP - General Family Medicine 07/09/24 Anabell Ireland NP Nurse Practitioner Family Medicine 06/01/24 documented as of this encounter
--- OUTSIDE RECORDS SUMMARY | 2025-06-09 16:37 | XMS_ITS | Encounter Summary ---
Author Organization [facility] Address [address] [place] [address] Care Team Providers Care It Project Coordinator Name Role Phone Shaikh DENNIS Ley Primary Care Provider [phone] Manish Reed MD Primary Care Provider [phone] Anabell Ireland MEALS ON WHEELS DRIVER Unavailable Unallocated, Romeo Provider Primary Care Provi jonathon Manish Reed MD Primary Care Provider [phone] Encounter Details Date Type Department Care Team (Late st Contact Info) Description 01/09/2024 Clinisync Result Encounter [facility] External Department Unsolicited Shaikh Ley MD [address] [place] [address] Social History Tobacco Use Types Packs/Day Years [...] week 09/10/2023 How often do you attend oriental orthodox or methodist serv ices? Never 09/10/2023 Do you belong to any clubs o r organizations such as oriental orthodox groups, unions, fraternal or athletic groups, or [...] Date Recorded Patient Health Questionnaire-2 Score 0 01/07/2024 [facility] - Occupational [...] place to sleep or slept in a long term (including now)? No 09/10/2023 Sex and Gender Information Value Date Recorded Sex Assigned at Not on file Legal Sex Male 6:39 PM EDT Gender Identity Not on file Sexual Orientation Not on file documented as of this encounter Plan of Treatment Not on file documented as of this encounter Procedures Procedure Name Priority Date/Time Associated Diagnosis Comments XR CHEST 2V 01/09/2024 4:11 PM EDT documented in this encounter Results * XR CHEST 2V (01/09/2024 4:11 PM EDT) Anatomical Region Laterality Modality Other 01/09/2024 4:11 PM EDT Narrative 01/09/2024 4:13 PM EDT The [address] [address] XRay Report Signed Patient: KULDIP SEYMOUR MR#: [id number] : 1985 Acct:[id number] Age/Sex: 38 / M ADM Date: 01/09/24 Loc: LAB Attending Dr: Shaikh Jil Cannon Ordering Physician: Shaikh Davis Ley Date of Service: 01/09/24 Procedure(s): XR chest 2V Accession Number(s): [id number] cc: Shaikh Davis Ley The [address] [address] Patient Name: KULDIP SEYMOUR MRN: [id number]:[id number] date: 1985 Sex: M Assigned Patient Location: LAB Current Patient Location: LAB Accession/Order Number: [id number] Exam Date: 01/09/2024 15:30 Report Date: 01/09/2024 16:11 At the request of: SHAIKH JIL Procedure: XR chest 2V EXAMINATION: XR chest 2V HISTORY: Respiratory illness J98.9 COMPARISON: No relevant comparison available. TECHNIQUE: PA and lateral FINDINGS: LUNGS: No significant pulmonary parenchymal abnormalities. VASCULATURE: No increased pulmonary vasculature. PLEURA: No pneumothorax, effusion, or pleural thickening. CARDIAC: No cardiomegaly or cardiac silhouette abnormality. MEDIASTINUM: No visible mass or adenopathy. BONES: No fracture or visible bone lesion. OTHER: Negative. XR/XR chest 2V IMPRESSION: No acute cardiopulmonary process Electronically authenticated by: MERLE CHANCE Date: 01/09/2024 16:11 Dictated By: Merle Chance M.D. Signed By: 01/09/24 1613 DD/ 1611 TD/TT: Durable Medical Equipment Technician: Procedure Note Radiology, Radiologist, MD - 01/09/2024 [place] [address] XRay Report Signed Patient: KULDIP SEYMOUR JMR#: [id number] : 1985Acct:[id number] Age/Sex: 38 / MADM Date: 01/09/24 Loc: LAB Attending Dr: Shaikh Jil Cannon Ordering Physician: Shaikh Davis Ley Date of Service: 01/09/24 Procedure(s): XR chest 2V Accession Number(s): [id number] cc: Shaikh Davis Ley The [address] [address] Patient Name: KULDIP SEYMUOR MRN: [id number] date: 1985 Sex: M Assigned Patient Location: LAB Current Patient Location: LAB Accession/Order Number: [id number] Exam Date: 01/09/2024 15:30 Report Date: 01/09/2024 16:11 At the request of: SHAIKH JIL Procedure: XR chest 2V EXAMINATION: XR chest 2V HISTORY: Respiratory illness J98.9 COMPARISON: No relevant comparison available. TECHNIQUE: PA and lateral FINDINGS: LUNGS: No significant pulmonary parenchymal abnormalities. VASCULATURE: No increased pulmonary vasculature. PLEURA: No pneumothorax, effusion, or pleural thickening. CARDIAC: No cardiomegaly or cardiac silhouette abnormality. MEDIASTINUM: No visible mass or adenopathy. BONES: No fracture or visible bone lesion. OTHER: Negative. XR/XR chest 2V IMPRESSION: No acute cardiopulmonary process Electronically authenticated by: MERLE CHANCE Date: 01/09/2024 16:11 Dictated By: Merle Chance M.D. Signed By:01/09/241612 DD/ 161 TD/TT: Durable Medical Equipment Technician: Shaikh Jil [facility] Final Result documented in this encounter Visit Diagnoses Not on filedocumented in this encounter Care Teams It Project Coordinator Relationship Specialty Start Date End Date Shaikh Ley MD PCP - General Internal Medicine 10/29/23 05/31/24 Manish Reed MD PCP - General Family Medicine 06/01/24 06/28/24 Unallocated, Noms MD D[facility] [place] [address] PCP - General Family Medicine 06/30/24 07/08/24 Manish Reed MD PCP - General Family Medicine 07/09/24 Anabell Ireland NP Nurse Practitioner Family Medicine 06/01/24 documented as of this encounter
--- OUTSIDE RECORDS SUMMARY | 2025-06-09 16:37 | XMS_ITS | Encounter Summary ---
Author Organization [facility] Address [address] [place] [address] Care Team Providers Care Care Specialist Name Role Phone Shaikh DENNIS Ley Primary Care Provider [phone] Manish Reed MD Primary Care Provider [phone] Anabell Ireland MILK PICKUP TRUCK DRIVER Unavailable [phone] Unallocated, Gabriella Shanks MD Primary Care Provi jonathon Manish Reed MD Primary Care Provider [phone] Encounter Details Date Type Department Care Team (Late st Contact Info) Description 02/13/2024 Abstract [facility] [address] [place] [id number] Federica Mai MA Social History Tobacco Use Types Packs/Day Years [...] week 09/10/2023 How often do you attend voodoo or muslim serv ices? Never 09/10/2023 Do you belong to any clubs o r organizations such as voodoo groups, unions, fraternal or athletic groups, or [...] Health Questionnaire-2 Score 0 01/07/2024 [facility] - Occupational Stress [...] place to sleep or slept in a care home (including now)? No 09/10/2023 Sex and Gender Information Value Date Recorded Sex Assigned at Not on file Legal Sex Male 6:39 PM EDT Gender Identity Not on file Sexual Orientation Not on file documented as of this encounter Plan of Treatment Not on file documented as of this encounter Visit Diagnoses Not on filedocumented in this encounter Care Teams Care Specialist Relationship Specialty Start Date End Date Shaikh Ley MD PCP - General Internal Medicine 10/29/23 05/31/24 Manish Reed MD PCP - General Family Medicine 06/01/24 06/28/24 UnallocatedGabriella MD [address] [place] [address] PCP - General Family Medicine 06/30/24 07/08/24 Manish Reed MD PCP - General Family Medicine 07/09/24 Anabell Ireland NP Nurse Practitioner Family Medicine 06/01/24 documented as of this encounter
--- OUTSIDE RECORDS SUMMARY | 2025-06-09 16:37 | XMS_ITS | Clinical Summary ---
Author Organization [facility] Address [address] [place], [place] [id number] Care Team Providers Care Office Service Coordinator Name Role Phone Unavailable Primary Care Provider Unavailabl e Social History Tobacco Use Types Packs/Day Years Used Date Smoking Tobacco: Never Tobacco Cessation:Counseling Given: Not Answered Alcohol Use Standard Drinks/Week Comments Yes 0 (1 standard drink = 0.6 oz pur e alcohol) social Sex and Gender Information Value Date Recorded Sex Assigned at Not on file Legal Sex Male 2:52 PM EDT Gender Identity Not on file Sexual Orientation Not on file Last Filed Vital Signs Vital Sign Reading Time Taken Comments Blood Pressure 114/76 03/28/2024 3:03 PM EDT Pulse 89 03/28/2024 3:03 PM EDT Temperature 37 C (98.6 F) 03/28/2024 3:03 PM EDT Respiratory Rate 22 03/28/2024 3:03 PM EDT Oxygen Saturation 98% 03/28/2024 3:03 PM EDT Inhaled Oxygen Concentration - - Weight - - Height - - Body Mass Index - - Plan of Treatment Health Maintenance Due Date Last Done Comments Anxiety Screening 2004 Depression Screening 2004 HIV Screening 2004 Hepatitis C Screening 2004 Hepatitis B Vaccine (1 of 3 - 19+ 3-dose series) 2005 HPV Vaccine (1 - 3-dose SCDM series) 2013 Lipid Screening 2021 Influenza Vaccine (#1) 2025 DTaP,Tdap,Td Vaccine (3 - Td or Tdap) 05/18/203305/2023, 08/09/2011 Insurance [facility]
[2025-06-09 17:07] LABS: Glucose Urine UA NEGATIVE (NEGATIVE)
[2025-06-09 17:16] LABS: Hematocrit 41.1 % (42.0-54.0); Hemoglobin 13.8 g/dL (14.0-18.0); Immature Granulocytes Abs Auto 0.10 10^3/uL (0.00-0.03); Immature Granulocytes Pct Auto 0.9 % (0.0-0.5); Lymphocytes Absolute Auto 1.6 10^3/uL (1.2-3.8); Mean Corpuscular HGB Conc 33.6 g/dL (29.9-35.2); Mean Corpuscular Hemoglobin 27.2 pg (25.9-34.0); Mean Corpuscular Volume 80.9 fL (80.0-94.0); Platelet Count 280 10^3/uL (150-450); Red Blood Count 5.08 10^6/uL (4.70-6.10); White Blood Count 10.8 10^3/uL (4.0-11.0)
[2025-06-09 17:49] LABS: Alanine Aminotransferase 34 U/L (16-63); Albumin Globulin Ratio 0.9; Albumin Level 3.5 g/dL (3.4-5.0); Alkaline Phosphatase 94 U/L (46-116); Anion Gap 12.8; Aspartate Amino Transferase 23 U/L (15-37); Blood Urea Nitrogen 13.0 mg/dL (7.0-18.0); Calcium 8.9 mg/dL (8.5-10.1); Carbon Dioxide 27.3 mmol/L (21.0-32.0); Chloride 100 mmol/L (98-107); Estimated GFR (African America >60 (>=60 mL/min/1.73m^2); Estimated GFR (Non-African Ame >60 (>=60 mL/min/1.73m^2); Globulin 4.1 g/dL; Glucose 88 mg/dL (74-106); Potassium 4.1 mmol/L (3.5-5.1); Sodium 136 mmol/L (136-145); Thyroid Stimulating Hormone 4.709 uIU/mL (0.358-3.740); Total Protein 7.6 g/dL (6.4-8.2)
[2025-06-10 11:15] LABS: Cholesterol 146 mg/dL (<=200); HDL Cholesterol 44 mg/dL (40-60); Triglycerides 66 mg/dL (<=150); VLDL CHOLESTEROL 13.2 mg/dL
== END 2025-06-09 16:35 | disposition home or self-care (01) ==
PROVIDERS: Visit Provider Nurse Practitioner
DX: Z00.00 Encounter for general adult medical examination without abnormal findings (principal); G47.33 Obstructive sleep apnea (adult) (pediatric); I10 Essential (primary) hypertension; E66.01 Morbid (severe) obesity due to excess calories; Z68.43 Body mass index [BMI] 50.0-59.9, adult
CPT/HCPCS: 36415; 80053; 80061; 81003; 83036; 83525; 84439; 84443; 85025

== ENCOUNTER 2025-07-16 15:32 | Outpatient (OUT) | payer OTHER, SELFPAY ==
--- OUTSIDE RECORDS SUMMARY | 2025-07-16 15:36 | XMS_ITS | Encounter Summary ---
Author Organization [facility] Address [address] [place] [address] Care Team Providers Care Airport Operations Officer Name Role Phone Shaikh DENNIS Ley Primary Care Provider [phone] Shaikh DENNIS Ley Primary Care Provider [phone] Manish Reed MD Primary Care Provider [phone] Anabell Ireland DATA WAREHOUSING MANAGER Unavailable [phone] Unallocated, [facility] Provider Primary Care Provi jonathon Manish Reed MD Primary Care Provider [phone] Encounter Details DateTypeDepartmentCare Team (Latest Contact Info)Ujzhnyvecrv90/06/2024Clinisync Result Encounter [facility] External Department Unsolicited Dominga Conner MD [address] [place] [address] Social History Tobacco UseTypesPacks/DayYears UsedDateSmoking Tobacco: NeverSmokeless Tobacco: NeverAlcohol UseStandard Drinks/WeekCommentsNot Currently2 (1 standard drink = 0.6 oz pure alcohol)caffeine: yes sodaHumiliation, Afraid, Rape, and Kick questionnaireAnswerDate RecordedWithin the last year, have you been afraid of your partner or ex-partner?No09/10/2023Within the last year, have you been humiliated or emotionally abused in other ways by your partner or ex-partner?No 09/10/2023Within the last year, have you been kicked, hit, slapped, or otherwise physically hurt by your partner or ex-partner?No09/10/2023Within the last year, have you been raped or forced to have any kind of sexual activity by your part ner or ex-partner?No09/10/2023Social Connection and Isolation PanelAnswerDate RecordedIn a typical week, how many times do you talk on the phone with family, friends, or neighbors?Twice a week09/10/2023How often do you get together with friends or relatives?Once a week09/10/2023How often do you attend jehovah's witness or evangelical services?Never09/10/2023o you belong to any clubs or organizations such as jehovah's witness groups, unions, fraRentabilities or athletic groups, or school groups?No 09/10/2023How often do you attend meetings of the clubs or organizations you belong to?Never09/10/2023re you , , , , never , or living with a partner?Elfsqoo1209/10/2023UDIT-CAnswerDate RecordedQ1: How often do you have a drink containing alcohol?2-4 times a month11/05/2023Q2: How many drinks containing alcohol do you have on a typical day when you are drinking?1 or Q3: How often do you have six or more drinks on one occasion?Never11/05/2023Overall Financial Resource Strain (CARDIA)AnswerDate RecordedHow hard is it for you to pay for the very basics like food, housing, medical care, and heating?Hard09/10/2023HQ-2AnswerDate RecordedPatient Health Questionnaire-2 Aeawf972[facility] [place] of Occupational Health - Occupational Stress QuestionnaireAnswerDate RecordedDo you feel stress - tense, restless, nervous, or anxious, or unable to sleep at night because yourmind is troubled all the time - these days?To some eoexzs5409/10/2023Exercise Vital Sign AnswerDate RecordedOn average, how many days per week do you engage in moderate to strenuous exercise (like a brisk walk)?1 day09/10/2023On average, how many minutes do you engage in exercise at this level?40 min09/10/2023Hunger Vital SignAnswerDate RecordedWithin the past 12 months, you worried that your food would run out before you got the money to buymore.Never true09/10/2023Within the past 12 months, the food you bought just didn't last and you didn't have money to get more.Never true09/10/2023RAPARE - TransportationAnswerDate RecordedIn the past 12 months, has lack of transportation kept you from medical appointments or from getting medications?No09/10/2023In the past 12 months, has lack of transportation kept you from meetings, work, or from getting things needed for daily living?No09/10/2023Housing Stability Vital SignAnswerDate RecordedIn the last 12 months, was there a time when you were not able to pay the mortgage or rent on time?No09/10/2023In the last 12 months, how many places have you lived?In the last 12 months, was there a time when you did not have a steady place to sleep or slept in [place] (including now)?No 09/10/2023Sex and Gender InformationValueDate RecordedSex Assigned at BirthNot on fileLegal SdfNpwa7611/21/2022 6:39 PM EDTGender IdentityNot on fileSexual OrientationNot on filedocumented as of this encounter Functional Status * AUDIT-C ScoreAnswerDate of YslexszignEosqxk411/27/2024 6:19 AM Spencer Carter * QuestionAnswerDate of AssessmentAuthorQ1: How often do you have a drink containing alcohol?2-4 times a month11/05/2023 6:19 AM Spencer CarterQ2: How many drinks containing alcohol do you have on a typical day when you are drinking?1 or 6:19 AM Spencer CarterQ3: How often do you have six or more drinks on one occasion?Never11/05/2023 6:19 AM Spencer Carter * Over the past 2 weeks, how often have you been bothered by any of the following problems?QuestionAnswerDate of AssessmentAuthorLittle interest or pleasure in doing thingsNot at all05/27/2024 3:30 PM Evangelina Montez MA Feeling down, depressed, or hopelessNot at all05/27/2024 3:30 PM Evangelina Montez MAPatient Health Questionnaire-2 Vypzv429 3:30 PM Evangelina Montez MA documented as of this encounter Plan of Treatment Not on file documented as of this encounter Procedures Procedure NamePriorityDate/TimeAssociated DiagnosisCommentsCT MAXILLOFACIAL W/O AYMJQRJF84/06/2024 7:43 AM EST documented in this encounter Results * CT MAXILLOFACIAL W/O CONTRAST (09/14/2023 7:43 AM EST)Anatomical Region LateralityModalityOtherSpecimen (Source)Anatomical Location / Laterality Collection Method / VolumeCollection TimeReceived Time09/14/2023 7:43 AM EST Narrative 09/15/2023 12:30 PM EST Exam Date/Time: 09/14/2023 08:00 EST Reason for Exam: J32.4 Report IMPRESSION: BILATERAL MAXILLARY SINUSITIS, GREATER ON BRIGHT. REMOTE RIGHT MAXILLARY ANTRECTOMY. ETHMOID SINUSITIS. CT MAXILLOFACIAL WITHOUT INTRAVENOUS CONTRAST MEDIUM. History: ??Chronic sinusitis. Technical factors: CT maxillofacial was obtained and formatted as 1.0 mm contiguous axial images. Sagittal and coronal reconstruction obtained during postprocessing. Comparison: ??None. Findings: Bilateral frontal sinuses patent. Partial opacification, [...] Ordering Provider: Dominga Conner FINAL REPORT Dictated: ??09/15/2023 12:27 pm ?Yo Zelaya MD Signed (Electronic Signature): ??09/15/2023 12:27 pm Signed by: ??Yo Zelaya MD Transcribed by: ??ALESSIO ? Technologist: ??VALERIE Procedure Note Radiology, Radiologist, - 09/16/2023 Exam [...] Zelaya MD Transcribed by: ALESSIO Technologist: VALERIE Authorizing ProviderResult TypeResult StatusHilary H Timallie MDCLINISYNC IMAGING Final Result documented in this encounter Visit Diagnoses Not on filedocumented in this encounter Care Teams Team MemberRelationshipSpecialtyStart DateEnd Date Shaikh Ley MD PCP - GeneralInternal Acjxqurt71/23/232 Shaikh Ley MD PCP - GeneralInternal Medicine Manish Reed MD PCP - GeneralFamily Medicine06/01/2410 Unallocated, Romeo Shanks MD [address] [place] [address] PCP - GeneralFamily Otfbrojq60/22/ Manish Reed MD [address] [place] [address] PCP - GeneralFamily Sfgnfoow83/31/24 Anabell Ireland NP Nurse PractitionerFamily Medicine06/01/24documented as of this encounter
--- OUTSIDE RECORDS SUMMARY | 2025-07-16 15:36 | XMS_ITS | Clinical Summary ---
Author Organization [facility] Address [address] [place] [id number] Care Team Providers Care Outsole Handler Name Role Phone Unavailable Primary Care Provider Unavailabl e Social History Tobacco UseTypesPacks/DayYears UsedDateSmoking Tobacco: Never Tobacco Cessation:Counseling Given: Not Answered Alcohol UseStandard Drinks/WeekCommentsYes0 (1 standard drink = 0.6 oz pure alcohol)socialSex and Gender InformationValueDate RecordedSex Assigned at Not on fileLegal NgaVuzs7703/28/2024 2:52 PM EDTGender IdentityNot on fileSexual OrientationNot on file Last Filed Vital Signs Vital SignReadingTime TakenCommentsBlood Lmlpfnhu240/7607 3:03 PM EDT Dgqhf510003/28/2024 3:03 PM YTMAccqzcliebx17 ??C (98.6 ??F)03/28/2024 3:03 PM EDT Respiratory Aorm163303/28/2024 3:03 PM EDTOxygen Nvoizjxark40%03/28/2024 3:03 PM EDTInhaled Oxygen Concentration--Weight--Height--Body Mass Index-- Plan of Treatment Health MaintenanceDue DateLast DoneCommentsAnxiety Wfrqueacl11/29/2004Depression Jgagbsfhb76/29/2004HIV Zxvruzmaj98/29/2004Hepatitis C Dlaugsbmk67/29/2004 Hepatitis B Vaccine (1 of 3 - 19+ 3-dose series)2005HPV Vaccine (1 - 3- dose SCDM series)2013Lipid Ldtziesmw33/29/2021Covid-19 Vaccine ( season)501/, 12/29/2020, 12/08/2020Influenza Vaccine (#1) 2025DTaP,Tdap,Td Vaccine (3 - Td or Tdap)/05/2023, 08/09/2011 Insurance
--- OUTSIDE RECORDS SUMMARY | 2025-07-16 15:36 | XMS_ITS | Encounter Summary ---
Author Organization [facility] Address [address] [place] [address] Care Team Providers Care Heating Equipment Installer Name Role Phone Shaikh DENNIS Ley Primary Care Provider [phone] Manish Reed MD Primary Care Provider [phone] Anabell Ireland CRO Unavailable [phone] Unallocated, [facility] Provider Primary Care Provi jonathon Manish Reed MD Primary Care Provider [phone] Encounter Details DateTypeDepartmentCare Team (Latest Contact Info)Vqzvcfkzkag10/02/2024Clinisync Result Encounter [facility] External Department Unsolicited Shaikh Ley MD [address] [place] [id number] Social History Tobacco UseTypesPacks/DayYears UsedDateSmoking Tobacco: FormerCigarettesPassive Smoke Exposure: PastSmokeless Tobacco: NeverAlcohol UseStandard Drinks/Week CommentsNot Currently2 (1 standard drink = 0.6 oz pure alcohol)caffeine: yes sodaHumiliation, Afraid, Rape, and Kick questionnaireAnswerDate RecordedWithin the last year, have you been afraid of your partner or ex-partner?No09/10/2023 Within the last year, have you been humiliated or emotionally abused in other ways by your partner or ex-partner?No09/10/2023Within the last year, have you been kicked, hit, slapped, or otherwise physically hurt by your partner or ex-partner?No09/10/2023Within the last year, have you been raped or forced to have any kind of sexual activity by your partner or ex-partner?No09/10/2023 Social Connection and Isolation PanelAnswerDate RecordedIn a typical week, how many times do you talk on the phone with family, friends, or neighbors?Twice a week09/10/2023How often do you get together with friends or relatives?Once a week09/10/2023How often do you attend yazdanism or mu-ism services?Never 09/10/2023o you belong to any clubs or organizations such as yazdanism groups, unions, fraAppurify or athletic groups, or school groups?No09/10/2023How often do you attend meetings of the clubs or organizations you belong to?Never09/10/2023 Are you , , , , never , or living with a partner?Bwreuhi2209/10/2023UDIT-CAnswerDate RecordedQ1: How often do you have a drink containing alcohol?2-4 times a month11/05/2023Q2: How many drinks containing alcohol do you have on a typical day when you are drinking?1 or 2 11/05/2023Q3: How often do you have six or more drinks on one occasion?Never 11/05/2023Overall Financial Resource Strain (CARDIA)AnswerDate RecordedHow hard is it for you to pay for the very basics like food, housing, medical care, and heating?Hard09/10/2023HQ-2AnswerDate RecordedPatient Health Questionnaire-2 Xputx166Finriver[facility] of Occupational Health - Occupational Stress QuestionnaireAnswerDate RecordedDo you feel stress - tense, restless, nervous, or anxious, or unable to sleep at night because yourmind is troubled all the time - these days?To some fasyjp1209/10/2023Exercise Vital SignAnswerDate Recorded On average, how many days per week do [...] 12 months, how many places have you lived?1 09/10/2023In the last 12 months, was there a time when you did not have a steady place to sleep or slept in [facility] (including now)?No09/10/2023Sex and Gender InformationValueDate RecordedSex Assigned at BirthNot on fileLegal SexMale 11/21/2022 6:39 PM EDTGender IdentityNot on fileSexual OrientationNot on file documented as of this encounter Functional Status * Over the past 2 weeks, how often have you been bothered by any of the following problems?QuestionAnswerDate of AssessmentAuthorLittle interest or pleasure in doing thingsNot at all05/27/2024 3:30 PM Evangelina Montez MA Feeling down, depressed, or hopelessNot at all05/27/2024 3:30 PM Evangelina Montez MAPatient Health Questionnaire-2 Psyaf854 3:30 PM Evangelina Montez MA documented as of this encounter Plan of Treatment Not on file documented as of this encounter Procedures Procedure NamePriorityDate/TimeAssociated DiagnosisCommentsXR CHEST 2V01/09/2024 4:11 PM EDT documented in this encounter Results * XR CHEST 2V (01/09/2024 4:11 PM EDT)Anatomical RegionLateralityModalityOther Specimen (Source)Anatomical Location / LateralityCollection Method / Volume Collection TimeReceived Time01/09/2024 4:11 PM EDT Narrative 01/09/2024 4:13 PM EDT [facility] ?[address] ? [place] [address] ?XRay Report ? Signed ? Patient: ASHLY,KULDIP Daigle ? MR#: [id number] ?? : 1985 ?Acct:[id number] ?? Age/Sex: 38 / M ?ADM Date: 01/09/24 ?? Loc: LAB ? Attending Dr: Shaikh Jil Cannon ? Ordering Physician: Shaikh Davis Ley ?? Date of Service: 01/09/24 ?? Procedure(s): XR chest 2V ?? Accession Number(s): [id number] ? cc: Shaikh Davis Ley ? [facility] ? [address] [facility] ? [place] [address] ? Patient Name: ?? KULDIP SEYMOUR ? MRN: [facility]:[id number] ? date: 1985 ?Sex: M ?? Assigned Patient Location: LAB ?? Current Patient Location: LAB ?? Accession/Order Number: [id number] ?? Exam Date: 01/09/2024 ??15:30 ?Report Date: 01/09/2024 ??16:11 ? At the request of: ?JIL ? Procedure: ??XR chest 2V ? EXAMINATION: XR chest 2V ? HISTORY: Respiratory illness J98.9 ? COMPARISON: No relevant comparison available. ? TECHNIQUE: PA and lateral ? FINDINGS: ?? LUNGS: No significant pulmonary parenchymal abnormalities. ?? VASCULATURE: No increased pulmonary vasculature. ?? PLEURA: No pneumothorax, effusion, or pleural thickening. ?? CARDIAC: No cardiomegaly or cardiac silhouette abnormality. ?? MEDIASTINUM: No visible mass or adenopathy. ?? BONES: No fracture or visible bone lesion. ?? OTHER: Negative. ? XR/XR chest 2V ?? IMPRESSION: ? No acute cardiopulmonary process ? Electronically authenticated by: MERLE ??ROBSON ?? Date: 01/09/2024 ??16:11 ? Dictated By: ?Merle Chance M.D. ? Signed By: ?01/09/24 1613 ? DD/ 1611 ? TD/TT: ? Head Operator: Procedure Note Radiology, Radiologist, - 01/09/[address] [address] XRay Report Signed Patient: KULDIP SEYMOUR JMR#: [id number] : 1985Acct:[id number] Age/Sex: 38 / MADM Date: 01/09/24 Loc: LAB Attending Dr: Shaikh Jil Cannon Ordering Physician: Shaikh Davis Ley Date of Service: 01/09/24 Procedure(s): XR chest 2V Accession Number(s): [id number] cc: Shaikh Davis Ley [address] [address] Patient Name: KULDIP SEYMOUR MRN: [id number] date: 1985 Sex: M Assigned Patient Location: LAB Current Patient Location: LAB Accession/Order Number: [id number] Exam Date: 01/09/2024 15:30 Report Date: 01/09/2024 [...] 16:11 Dictated By: Merle Chance M.D. Signed By:01/09/24 1613 DD/ 1611 TD/TT: Head Operator: Authorizing ProviderResult TypeResult StatusShaikh Jil MDCLINISYNC IMAGING Final Result documented in this encounter Visit Diagnoses Not on filedocumented in this encounter Care Teams Team MemberRelationshipSpecialtyStart DateEnd Date YanawShaikh cordova MD PCP - GeneralInternal Medicine Manish Reed MD PCP - GeneralFamily Medicine06/01/2410 Unallocated, Noms MD [address] [place] [address] PCP - GeneralFamily Vfyujiot08/22/ Manish Reed MD [address] [place] [address] PCP - GeneralFamily Njkmicuc57/31/24 Anabell Ireland NP Nurse PractitionerWinneshiek Medical Centerly Medicine06/01/24documented as of this encounter
--- OUTSIDE RECORDS SUMMARY | 2025-07-16 15:36 | XMS_ITS | Clinical Summary ---
Author Organization [facility] Address [address] [place] [address] Care Team Providers Care Hospice Administrator Name Role Phone Anabell Ireland FISH PEDDLER Unavailable [phone] Manish Reed MD Primary Care Provider [phone] Allergies No known active allergies Medications MedicationSigDispense QuantityRefillsLast FilledStart DateEnd DateStatus alfuzosin ER (Uroxatral) 10 MG 24 hr tablet Take 10 mg by mouth06/19/2024ctive montelukast (Singulair) 10 MG tablet Indications:Nasal polyposisTake 1 tablet (10 mg) by mouth at bedtime 90 tablet 5Active fluticasone (Flonase) 50 MCG/ACT nasal spray Indications:Nasal polyposisAdminister 2 sprays into each nostril Daily Shake gently. Before first use, prime pump. After use, clean tip and replace cap. 48 g 5Active losartan (Cozaar) 50 MG tablet Indications:Primary hypertensionTake 1 tablet (50 mg) by mouth Daily 30 tablet 5Active hydroCHLOROthiazide (HYDRODiuril) 25 MG tablet Indications:Primary hypertensionTake 1 tablet (25 mg) by mouth Daily 30 tablet 5Active Active Problems ProblemNoted DateDiagnosed DateAthlete's foot on left06/29/2024Neck stiffness 03/05/2024 Assessment & Plan (03/05/2024 9:24 AM EDT): Reports neck stiffness, daily. Feels like his muscles are tight on left side of neck No radiculopathy. Ongoing for a few months. Pre-operative gfxlutwrf58/20/2024 Assessment & Plan (10/29/2023 9:24 AM EST): Patient scheduled for right nasal polypectomy and bilateral MMA for chronic nasal polyposis and sinusitis. Risk factors include - NORBERTO, morbid obesity, HTN. Denies personal hx of CAD, CHF, COPD. Non smoker. Patient denies any symptoms concerning for underlying CAD. Last time, he had surgical procedure under [facility]- was about 5 years ago. He denies any complications from anesthesia, surgery. Patient is at low risk of MACE - cleared to proceed with surgery. Chronic maxillary hoblwkxzx42/10/2024Morbid obesity with BMI of 50.0-59.9, adult 09/17/2023 Assessment & Plan (04/05/2025 7:21 AM EDT): Discussed with patient their BMI (actual, verses recommended). We have also discussed lifestyle modifications: attempts to perform physical activity as chronic conditions allow, also to monitor dietary intake: increasing protein/fruits/veggies and lowering carb intake (unless contraindicated). Limit sodas, juices, and sugary drinks. Also discussed oral medications that can be utilized for weight loss, as well as surgical options for weight loss. Assessment & Plan (07/29/2024 3:52 PM EST): Started on Phentermine in February Starting weight: 426 Current weight: 351.1 5% of total weight was 21.3- patient met goal Has lost a total of 75 pounds Goal weight: 25% body fat. Has changed diet and lifestyle Denies any adverse effects; Had Body composition analysis done at gym. Results listed below: BMR: 06350uT Body fat%: 45.7% Fat Mass: 168.5 lbs FFM: 200.5 lbs TBW: 147.0 lbs Desirable Range: Fat %: 8-20% Fat Mass: 17.5-50.0 lb Did a 5k last Saturday!!! Pt meets qualifications of OAC 4731-07-13 for weight loss. BMI>30 or >27 with comorbid conditions. Blood pressure WNL. Notify office with any symptoms of chest pain, dyspnea, heart palpitations, or any anxiety symptoms. F/U in 4 weeks to document weight loss. Increase physical activity as tolerated, and lower caloric intake to 1600 calories daily if no contraindications Assessment & Plan (06/29/2024 4:11 PM EDT): Started on Phentermine in February Starting weight: 426 Current weight: 376 5% of total weight was 21.3- patient met goal Has lost a total of 50 pounds Goal weight: 25% body fat. Has changed diet and lifestyle Denies any adverse effects; Had Body composition analysis done at gym. Results listed below: BMR: 99896vH Body fat%: 45.7% Fat Mass: 168.5 lbs FFM: 200.5 lbs TBW: 147.0 lbs Desirable Range: Fat %: 8-20% Fat Mass: 17.5-50.0 lbs Diet: mostly home cooked meals; high protein; low carb; 1342-8913 calories per day Exercise: Daily. Lifting. Water: 1 gallon per day Pt meets qualifications of OAC 4731-07-13 for weight loss. BMI>30 or >27 with comorbid conditions. Blood pressure WNL. Notify office with any symptoms of chest pain, dyspnea, heart palpitations, or any anxiety symptoms. F/U in 4 weeks to document weight loss. Increase physical activity as tolerated, and lower caloric intake to 1600 calories daily if no contraindications Assessment & Plan (05/27/2024 3:48 PM EDT): Started on Phentermine in February Has lost a total of 48 pounds Has changed diet and lifestyle Pt meets qualifications of OAC 4731-07-13 for weight loss. BMI>30 or >27 with comorbid conditions. Blood pressure WNL. Notify office with any symptoms of chest pain, dyspnea, heart palpitations, or any anxiety symptoms. F/U in 4 weeks to document weight loss. Increase physical activity as tolerated, and lower caloric intake to 1600 calories daily if no contraindications Assessment & Plan (04/09/2024 2:01 PM EDT): Was prescribed Wegovy - out of pocket cost is too high. Discussed bariatric surgery. - he would like to try medications first. He is seen today for follow up for Adapex. Lost about 25 lbs on it. Doing well on it. Follow up in one week to assess response. Assessment & Plan (03/05/2024 9:22 AM EDT): Was prescribed Wegovy - out of pocket cost is too high. Discussed bariatric surgery. - he would like to try medications first. He is agreeable to try and use Adapex. Patient counseled and educated on adverse effects, drug interactions and to reach out to office/pharmacy if questions or concerns related to new medications. Assessment & Plan (10/29/2023 9:35 AM EST): Patient educated on risks of increased cardiovascular morbidity/mortality and poor health outcomes associated with unhealthy bodyweight. Patient counseled on lifestyle modifications, dietary restrictions. Patient encouraged to limit caloric intake and increase physical activity. Therapeutic and surgical options reviewed with patient . Patient was offered opportunity to ask questions and address their concern. He could not use Wegocy due to the high cost. I discussed Bariatric surgery in detail this appointment and will revisit it next visit as he is focused on his ENT surgery next week Assessment & Plan (09/17/2023 12:21 PM EST): Patient educated on risks of increased cardiovascular morbidity/mortality and poor health outcomes associated with unhealthy bodyweight. Patient counseled on lifestyle modifications, dietary restrictions. Patient encouraged to limit caloric intake and increase physical activity. Therapeutic and surgical options reviewed with patient . Patient was offered opportunity to ask questions and address their concern. Patient educated on caloric restrictions. Will start patient on Wegovy. Patient counseled and educated on adverse effects, drug interactions and to reach out to office/pharmacy if questions or concerns related to new medications. Wellness wwnsynphhgd03/09/2024 Assessment & Plan (04/05/2025 4:56 PM EDT): No exam, just ordering labs Assessment & Plan (09/17/2023 12:22 PM EST): Patient here for Annual Wellness. No active complaints to offer. Reviewed medical, surgical and social hx. Reviewed medications. Patient counseled on lifestyle modifications, dietary restrictions, increasing physical activity. Refused Influenza vaccine. Nasal boigpbxbc58/09/2024 Assessment & Plan (09/17/2023 12:27 PM EST): Chronic nasal obstruction and recurrent sinusitis from multiple nasal polyps for which he underwentsurgery before. Following ENT - has CT scan tomorrow and than follow up appointment with ENT. Niqvstvlefuv01/21/2023 Assessment & Plan (03/05/2024 9:28 AM EDT): Baseline is 11-13K Chronically elevated. Assessment & Plan (09/17/2023 12:20 PM EST): Baseline is 11-13K Chronically elevated. Recheck to ensure stable. NORBERTO (obstructive sleep apnea)07/30/2023 Assessment & Plan (04/05/2025 4:55 PM EDT): You have a diagnosis of obstructive sleep apnea. It is recommended that you wear your PAP device any time while in bed sleeping. Not using the PAP device can increase your risk of elevated/uncontrolled high blood pressure, atrial fibrillation, heart attack, stroke, or sudden . Compliance with PAP:no Extensive discussion with pt, he is willing to do at home study Assessment & Plan (05/27/2024 4:38 PM EDT): Was previously diagnosed with NORBERTO but has not been wearing CPAP due to high pressures; Would like to start wearing again. Order sent for re titration study. Assessment & Plan (10/29/2023 9:26 AM EST): Patient has difficulty using CPAP. He is scheduled for bilateral MMA and right nasal polypectomy and I suspect this will help his NORBERTO too. He has not had Sleep study for a long time and will benefit from one post operatively. Discussed this patient and will address this once he has recovered from his surgery. Imnklfufmtkh52/21/2023 Assessment & Plan (04/05/2025 4:56 PM EDT): DASH diet Limit caffeine Contact office if chest pain, pressure, dizziness, shortness of breath, swelling legs No current meds at this time Restart hydrochlorothiazide 25mg daily and losartan 50mg daily Recheck labs in 10 days Assessment & Plan (06/29/2024 4:10 PM EDT): Was taking losartan-hydrochlorothiazide 100-25mg. States his BP was dropping into the 90's Systolic so he stopped taking medication one week ago. BP is good today in office 122/72. Educated patient on significance of not starting or discontinuing medication regimen without provider guidance first. States in the past week the highest reading he has gotten without BP medication is 120/88. Will closely monitor BP readings and determine if medication regimen is necessary to reinitiate. Given BP log, advised pt to record BP and bring log back with them to next visit. Assessment & Plan (04/09/2024 2:01 PM EDT): BP usually well controlled. Tolerating Anti hypertensive w/o adverse effects. Cw Losartan-hydrochlorothiazide. Assessment & Plan (03/05/2024 9:17 AM EDT): BP usually well controlled. Tolerating Anti hypertensive w/o adverse effects. Cw Losartan-hydrochlorothiazide. Check labs - CBC, CMP. Assessment & Plan (01/07/2024 9:44 AM EDT): BP usually well controlled. Above goal in office today but he is feeling unwell. Tolerating Anti hypertensive w/o adverse effects. Cw Losartan-hydrochlorothiazide. Assessment & Plan (09/17/2023 12:20 PM EST): BP well controlled. On average less than 130/90. Tolerating Anti hypertensive w/o adverse effects. Denies lightheadedness, dizziness, syncope, presyncope. Patient encouraged to continue with home BP monitoring and call office if he experiences orthostatic symptoms or persistently elevated BP. On Losartan-hydrochlorothiazide. Check CMP to ensure electrolytes are normal while on medications Nasal elcgzy4907/30/2023 Resolved Problems ProblemNoted DateDiagnosed DateResolved DateRespiratory otfolii2201/07/2024 04/05/2025 Assessment & Plan (01/07/2024 9:46 AM EDT): Patient reports chest pain, cough with sputum and chest congestion. He is also report mild SOB On exam - rales noted in right lung base on auscultation. No resp distress but patient noted to have wet sounding cough during office visit. Will order Levaquin along with Benzonatate for presumed Lower respiratory infection. Patient can take tylenol or motrin as needed. Patient instructed to call office if no improvement or worsening symptoms. Encounters DateTypeDepartmentCare OypcGbkisguuhpr46/01/2025Clinisync Result Encounter [facility] Unsolicited Provider, Generic External Data from Last 3 Months Immunizations ImmunizationAdministration DatesNext WhpSszt9705/18/2023,08/09/2011 Family History Medical HistoryRelationNameCommentsCancerFatherLymphomaFatherHeart disease Maternal GrandfatherCancerMaternal GrandmotherHeart diseasePaternal Grandfather RelationNameStatusCommentsFatherDeceasedMaternal GrandfatherDeceasedMaternal GrandmotherAliveMotherAlivePaternal GrandfatherDeceased Social History Tobacco UseTypesPacks/DayYears UsedDateSmoking Tobacco: FormerCigarettesStarted: 2001Passive Smoke Exposure: PastSmokeless Tobacco: Never Tobacco Cessation:Counseling Given: Not Answered Alcohol UseStandard Drinks/WeekCommentsNot Currently2 (1 standard drink = 0.6 oz pure alcohol)caffeine: 12 cans of soda daily, 2x weekly for energy drinks Humiliation, Afraid, Rape, and Kick questionnaireAnswerDate RecordedWithin the [...] relatives?Once a week09/10/2023How often do you attend samaritan or mu-ism services?Never 09/10/2023o you belong to any clubs or organizations such as samaritan groups, unions, fraternal or athletic groups, or school groups?No09/10/2023How often do you attend meetings of the clubs or organizations you belong to?Never09/10/2023 Are you , , , , never , or living with a partner?Cczvjdx9709/10/2023UDIT-CAnswerDate RecordedQ1: How often do you have a [...] medical care, and heating?Hard09/10/2023HQ-2AnswerDate RecordedPatient Health Questionnaire-2 Nkxia440[facility] [place] [facility] - Occupational Stress QuestionnaireAnswerDate RecordedDo you feel stress - tense, restless, nervous, or anxious, or unable to sleep at night because yourmind is troubled all the time - these days?To some hsmmnm8309/10/2023Exercise Vital SignAnswerDate Recorded On average, how many [...] steady place to sleep or slept in ashelter (including now)?No09/10/2023Sex and Gender InformationValueDate RecordedSex Assigned at BirthNot on fileLegal SexMale 11/21/2022 6:39 PM EDTGender IdentityNot on fileSexual OrientationNot on file Last Filed Vital Signs Vital SignReadingTime TakenCommentsBlood Qtkdglur335/63558 3:39 PM EDT Zcawo307004/05/2025 3:39 PM KSKFdnkkxxpxby52.6 ??C (97.8 ??F)04/05/2025 3:39 PM EDTRespiratory Ahje921804/05/2025 3:39 PM EDTOxygen Zgkghnyunr08%04/05/2025 3:39 PM EDTInhaled Oxygen Concentration--Cmtqkz513 kg (444 lb 3.2 oz)04/05/2025 3:39 PM ZPAFnimni140 cm (5' 10.87 )04/05/2025 3:39 PM EDTBody Mass Index62.19 04/05/2025 3:39 PM EDT Plan of Treatment Health MaintenanceDue DateLast DoneCommentsCOVID-19 Vaccine ( season) 501/, 12/29/2020, 12/08/2020Influenza Vaccine (#1)2025 Pneumococcal Vaccine: Pediatrics (0 to 5 Years) and At-Risk Patients (6 to 64 Years)Aged OutNo longer eligible based on patient's age to complete this topic Procedures Procedure NamePriorityDate/TimeAssociated DiagnosisCommentsTBH INSULINRoutine 06/09/2025 4:59 PM EDT ALL LIPID PROFILE (FASTING)Vwohquo2506/09/2025 4:59 PM EDT ALL THYROID STIM CYYZFOVSprmnyu91/01/2025 4:59 PM EDT [facility] CMP (CMP) (FOR REMOTE [facility] USE)Acglvfd7706/09/2025 4:59 PM EDT ALL THYROXINE (T4) LAVYQvkvtci46/01/2025 4:59 PM EDT MLR HEMOGLOBIN M0TXbkhvcn53/01/2025 4:59 PM EDT ALL CBC WITH AUTO IAQNQwrvjvb92/01/2025 4:59 PM EDT TBH UA (CLEAN/CATCH) MICROSCOPIC IF OYXUPEVAFpskdqy24/01/2025 4:45 PM EDT from Last 3 Months Results * [facility] INSULIN (06/09/2025 4:59 PM EDT)ComponentValueRef RangeTest MethodAnalysis TimePerformed AtPathologist SignatureINSULIN6.82.6 - 24.9 uIU/mLTBHComment: Performed at: ??CB - [facility] [address] ??[id number] Lumber Driver: Felipe Stewart PhD, Phone: ??[phone] Specimen (Source)Anatomical Location / LateralityCollection Method / Volume Collection TimeReceived Time06/09/2025 4:59 PM EDT1 5:01 PM EDT Narrative [facility] - 06/11/2025 8:09 AM EDT Authorizing ProviderResult TypeResult StatusGeneric External Data Provider CLINISYNCFinal ResultPerforming OrganizationAddressCity/State/ZIP CodePhone Number [facility] * [facility] HEMOGLOBIN A1C (06/09/2025 4:59 PM EDT)ComponentValueRef RangeTest Method Analysis TimePerformed AtPathologist SignatureGLYCOHEMOGLOBIN A1C5.74.5 - 6.2 %TBHComment: ADA RECOMMENDED LIMIT 4.0 - 6.0 ADA THERAPEUTIC TARGET < 7.0 ACTION SUGGESTED > 7.0 ESTIMATED AVERAGE AYAVYYG789gk/dLTBHSpecimen (Source)Anatomical Location / LateralityCollection Method / VolumeCollection TimeReceived Time06/09/2025 4:59 PM EDT1 5:01 PM EDT Narrative [facility] - 06/09/2025 5:29 PM EDT Authorizing ProviderResult TypeResult StatusGeneric External Data Provider CLINISYNCFinal ResultPerforming OrganizationAddressCity/State/ZIP CodePhone Number BRENDA HENRIQUEZ * [facility] CMP (CMP) (FOR REMOTE [facility] USE) (06/09/2025 4:59 PM EDT)ComponentValueRef RangeTest MethodAnalysis TimePerformed AtPathologist JlfwkcxjkCOUKZF225539 - 145 mmol/LTBHPOTASSIUM4.13.5 - 5.1 mmol/XXQAOPZKLBEZ99113 - 107 mmol/LTBH [place] TTCAGGQ94.321.0 - 32.0 mmol/LTBHANION GAP12.1GWVOZRXELS0611 - 106 mg/dL TBHBLOOD UREA BRSCNLOM71.07.0 - 18.0 mg/dLTBHCREATININE1.050.70 - 1.30 mg/dL TBHTBH EGFR-AF MACANESE>60>=60 mL/min/1.73m 2TBHTBH EGFR-NON AF MACANESE>60 >=60 mL/min/1.73m 2TBHBUN CREATININE RATIO12.4VDEGQCNPND6.98.5 - 10.1 mg/dLTBH BILIRUBIN TOTAL0.50.2 - 1.0 mg/dLTBHASPARTATE AMINO FUFJIDEOBWP5587 - 37 U/L TBHALANINE ISGZRZJPEBMGPHWT6660 - 63 U/LTBHALKALINE JBKKQOIWZLJ1357 - 116 U/L TBHTOTAL PROTEIN7.66.4 - 8.2 g/dLTBHALBUMIN LEVEL3.53.4 - 5.0 g/dLTBHGLOBULIN 4.1g/dLTBHALBUMIN GLOBULIN RATIO0.9TBHSpecimen (Source)Anatomical Location / LateralityCollection Method / VolumeCollection TimeReceived Time06/09/2025 4:59 PM EDT1 5:01 PM EDT Narrative [facility] - 06/09/2025 5:51 PM EDT Authorizing ProviderResult TypeResult StatusGeneric External Data Provider CLINISYNCFinal ResultPerforming OrganizationAddPenn Highlands Healthcarety/State/ZIP CodePhone Number [facility] * ALL THYROXINE (T4) FREE (06/09/2025 4:59 PM EDT)ComponentValueRef RangeTest MethodAnalysis TimePerformed AtPathologist SignatureFREE T41.210.76 - 1.46 ng/dLTBHSpecimen (Source)Anatomical Location / LateralityCollection Method / VolumeCollection TimeReceived Time06/09/2025 4:59 PM EDT1 5:01 PM EDT Narrative [facility] - 06/09/2025 5:51 PM EDT Authorizing ProviderResult TypeResult StatusGeneric External Data Provider [facility] ResultPerforming OrganizationAddPenn Highlands Healthcarety/State/ZIP CodePhone Number [facility] * (ABNORMAL) ALL THYROID STIM HORMONE (06/09/2025 4:59 PM EDT)ComponentValueRef RangeTest MethodAnalysis TimePerformed AtPathologist SignatureTHYROID STIMULATING HORMONE4.709(H)0.358 - 3.740 uIU/mLTBHSpecimen (Source)Anatomical Location / LateralityCollection Method / VolumeCollection TimeReceived Time 06/09/2025 4:59 PM EDT1 5:01 PM EDT Narrative [facility] - 06/09/2025 5:51 PM EDT Authorizing ProviderResult TypeResult StatusGeneric External Data Provider CLINISYNCFinal ResultPerforming OrganizationAddNew [facility]/State/ZIP CodePhone Number [facility] * ALL LIPID PROFILE (FASTING) (06/09/2025 4:59 PM EDT)ComponentValueRef Range Test MethodAnalysis TimePerformed AtPathologist NqthrjmeqXGCHWFEQEEQCS05<=150 mg/xQBYWOMKLMYWALZY246<=200 mg/dLTBHHDL SEPZIUFMUTS0737 - 60 mg/dLTBHComment: > or =60 mg/dl - LOW CARDIOVASCULAR RISK <40 mg/dl - HIGH CARDIOVASCULAR RISK LDL CHOLESTEROL FRKHSJWJUW12.8mg/dLTBHComment: <100 mg/dl OPTIMAL 100-129 mg/dl NEAR OR ABOVE OPTIMAL 130-159 mg/dl BORDERLINE HIGH 160-189 mg/dl HIGH >190 mg/dl VERY HIGH VLDL PTBJUEHSVMT62.2mg/dLTBHCHOL HDL RATIO3.3TBHComment: 3.3 - 4.4 ?? LOW RISK 4.4 - 7.1 ?? AVERAGE RISK 7.1 - 11.0 ??MODERATE RISK >11.0 HIGH RISK Specimen (Source)Anatomical Location / LateralityCollection Method / Volume Collection TimeReceived Time06/09/2025 4:59 PM EDT1 5:01 PM EDT Narrative [facility] - 06/10/2025 11:56 AM EDT Authorizing ProviderResult TypeResult StatusGeneric External Data Provider CLINISYNCFinal ResultPerforming OrganizationAddressCity/State/ZIP CodePhone Number [facility] * (ABNORMAL) ALL CBC WITH AUTO DIFF (06/09/2025 4:59 PM EDT)ComponentValueRef RangeTest MethodAnalysis TimePerformed AtPathologist SignatureTB WBC10.84.0 - 11.0 10 3/uLTBHTBH RBC5.084.70 - 6.10 10 6/uLTBHTBH HGB13.8(L)14.0 - 18.0 g/dL TBHTBH HCT41.1(L)42.0 - 54.0 %TBHTBH MCV80.980.0 - 94.0 fLTBHTBH MCH27.225.9 - 34.0 pgTBHTBH MCHC33.629.9 - 35.2 g/dLTBHTBH RDW13.211.0 - 15.0 %TBHTBH YAG601 150 - 450 10 3/uLTBHTBH MPV9.4(L)9.5 - 13.5 fLTBHNEUTROPHILS PERCENT AUTO73.2 43.0 - 75.0 %TBHLYMPHOCYTES PERCENT AUTO14.7(L)20.5 - 60.0 %TBHMONOCYTES PERCENT AUTO9.11.7 - 12.0 %TBHTBH EO %1.40.9 - 7.0 %TBHBASOPHILS PERCENT AUTO 0.70.2 - 2.0 %TBHIMMATURE GRANULOCYTES PCT AUTO0.9(H)0.0 - 0.5 %TBHNEUTROPHILS ABSOLUTE AUTO7.9(H)1.4 - 6.5 10 3/uLTBHLYMPHOCYTES ABSOLUTE AUTO1.61.2 - 3.8 10 3/uLTBHMONOCYTES ABSOLUTE AUTO1.0(H)0.3 - 0.8 10 3/uLTBHTBH EO #0.20.0 - 0.7 10 3/uLTBHBASOPHILS ABSOLUTE AUTO0.10.0 - 0.1 10 3/uLTBHIMMATURE GRANULOCYTES ABS AUTO0.10(H)0.00 - 0.03 10 3/uLTBHSpecimen (Source)Anatomical Location / LateralityCollection Method / VolumeCollection TimeReceived Time 06/09/2025 4:59 PM EDT1 5:01 PM EDT Narrative [facility] - 06/09/2025 5:17 PM EDT Authorizing ProviderResult TypeResult StatusGeneric External Data Provider CLINISYNCFinal ResultPerforming OrganizationAddressCity/State/ZIP CodePhone Number [facility] * TB[facility] UA (CLEAN/CATCH) MICROSCOPIC IF INDICATE (06/09/2025 4:45 PM EDT)Component ValueRef RangeTest MethodAnalysis TimePerformed AtPathologist SignatureCOLOR URINELT. YELLOWYELLOWTBHCLARITY URINECLEARCLEARTBHSPECIFIC GRAVITY URINE1.015 1.005 - 1.025TBHPH URINE7.05.0 - 9.0TBHPROTEIN URINENEGATIVENEG/TRACE mg/dLTBH GLUCOSE URINE UANEGATIVENEGATIVE mg/dLTBHBILIRUBIN URINENEGATIVENEGATIVETBH KETONES URINENEGATIVENEGATIVE mg/dLTBHBLOOD URINENEGATIVENEGATIVETBHNITRITE URINENEGATIVENEGATIVETBHUROBILINOGEN URINE0.20.2 - 1.0 EU/dLTBHLEUKOCYTE ESTERASE URINENEGATIVENEGATIVETBHURINE MICROSCOPIC INDICATEDNOTBHSpecimen (Source)Anatomical Location / LateralityCollection Method / VolumeCollection TimeReceived Time06/09/2025 4:45 PM EDT1 5:01 PM EDT Narrative [facility] - 06/09/2025 5:15 PM EDT Authorizing ProviderResult TypeResult StatusGeneric External Data Provider CLINISYNCFinal ResultPerforming OrganizationAddressCity/State/ZIP CodePhone Number [facility] from Last 3 Months Insurance Care Teams Team MemberRelationshipSpecialtyStart DateEnd Date Manish Reed MD [address] [place] [id number] PCP - GeneralFamily Cacmjtar12/31/24 Anabell Ireland NP Nurse PractitionerFamily Medicine06/01/24
--- OUTSIDE RECORDS SUMMARY | 2025-07-16 15:37 | XMS_ITS | CCD ---
Author Organization [facility] Care Team Providers Care Snow Ranger Name Role Phone FAWWALon, BUTTERFIELD H Primary Care Unavailable KRYSTINA BUTTS Attending Unavailable BECKIE, KRYSTINA Consulting Unavailable BECKIE, KRYSTINA Admitting Unavailable LINDA FONTANEZ Consulting Unavailable FAWWAD, BUTTERFIELD H Primary Care [...] Care Provider SHAIKH LEY Primary Care Physician Diana Wolf Attending Unavailable Timmis, Shawn H Admitting Unavailable Timmis, Shawn H Attending Unavailable Timmis, Shawn H Referring Unavailable Timmis, Shawn H Admitting Unavailable Timmis, Shawn H Attending Unavailable Timmis, Shawn H Referring Unavailable Diana Wolf Admitting Unavailable Diana Wolf Attending Unavailable Timmis, Shawn H Admitting Unavailable Timmis, Shawn H Attending Unavailable Timmis, Shawn H Referring Unavailable GalDiana amador Admitting Unavailable Diana Wolf Attending Unavailable ANJEL IRELAND Primary Care UnavailGita Molina Attending Unavailable BEKA, MS. ANJEL WALDROP Primary Care P hysician Derek COLLINS, Manish Primary Care Provider Beka ENTREPRENEURIAL FINANCE PROFESSOR, Anjel Unavailable Manish Reed MD Primary Care Provider Jil COLLINS, Primary Care Provider Beka ENTREPRENEURIAL FINANCE PROFESSOR, Anjel Unavailable [phone] LINDA GROSSMAN Attending Unavailable SHAIKH LEY Attending Unavailable BEKA, ANJEL Attending Alayna IRELAND, ANJEL Attending SHAWN Mendez Attending Unavailable BEKA, ANJEL Attending Alayna Reed MD, Manish Primary Care Provider Jil COLLINS, Primary Care Provider [phone] Jil COLLINS, Primary Care Provider [phone] Manish Reed MD Primary Care Provider [phone] UnallocatGabriella langford MD Provider Primary Care Provi jonathon Allergies Allergy ClassificationReported Allergen(s)Allergy TypeDate of OnsetReaction(s) Facility (2 sources)No Known Medication Allergies; Translations: [No Known Medication Allergies]Propensity to adverse reactions (disorder)[facility] Medications Current Medications MedicationDrug Class(es)DatesSig (Normalized)Sig (Original)24 hr alfuzosin hydrochloride 10 mg extended release oral tablet (13 sources)alpha-Adrenergic BlockerStart: 59-89-0453xhgfijzhw ER (Uroxatral) 10 MG 24 hr tablet Take 10 mg by mouth 06/19/2024 ActiveCentrum Men's oral tablet (5 sources)Start: 10-88-0348cdwb 1 tablet by mouth once dailyCentrum Men's oral tablet 1 tab(s), Oral, Daily Prophylaxis Start Date: 10/22/23 Status: Ordered cephalexin 500 mg oral capsule (1 source)Cephalosporin AntibacterialStart: 54-41-2100eefa 1 capsule by mouth every eight hoursCephalexin 500 MG 1 capsule Orally tid for 10 day(s) Oct, ActiveFish Oils (5 sources)Start: 60-78-9183gfie 2 capsules by mouth twice daily as neededFish Oil 500 mg oral capsule 1,000 mg = 2 cap(s), Oral, BID, PRN Prophylaxis Start Date: 10/22/23 Status: OrderedhydroCHLOROthiazide 25 mg oral tablet (3 sources)Thiazide DiureticStart: 04-05-2025 End: 74-89-7732furx 1 tablet by mouth once dailyhydroCHLOROthiazide (HYDRODiuril) 25 MG tablet Indications: Primary hypertension Take 1 tablet (25 m g) by mouth Daily 30 tablet 1 04/05/2025 ActivehydroCHLOROthiazide 25 mg / losartan potassium 100 mg oral tablet (12 sources)Thiazide Diuretic, Angiotensin 2 Receptor BlockerStart: 10-22-2023 End: 79-44-1811hteh 1 tablet by mouth once dailylosartan-hydroCHLOROthiazide (Hyzaar) 100-25 MG tablet Indications: Primary hypertension (CMS/HCC) Take 1 tablet by mouth Daily 90 tablet 1 01/22/2024 07/20/2024 ActiveStart: 09-17-2023 End: 71-06-2435ymsk 1 tablet by mouth in the morninglosartan-hydroCHLOROthiazide (Hyzaar) 100-25 MG tablet Indications: Resistant hypertension Take 1 tablet by mouth in the morning. 90 tablet 0 09/17/2023 12/16/2023 Activelosartan potassium 50 mg oral tablet (3 sources)Angiotensin 2 Receptor BlockerStart: 04-05-2025 End: 54-77-7246glma 1 tablet by mouth once dailylosartan (Cozaar) 50 MG tablet Indications: Primary hypertension Take 1 tablet (50 mg) by mouth Daily 30 tablet 1 04/05/2025 Activemontelukast 10 mg oral tablet (19 sources)Leukotriene Receptor AntagonistStart: 09-18-2023 End: 90-76-0310nksc 1 tablet by mouth at bedtimemontelukast (Singulair) 10 MG tablet Indications: Nasal polyposis Take 1 tablet (10 mg) by mouth atbedtime 90 tablet 3 07/21/2024 07/21/2025 ActiveProbiotic 10 Ultra Strength (5 sources)Start: 47-24-8135itsy 1 capsule by mouth once dailyProbiotic 10 Ultra Strength 1 cap(s), Oral, Daily Prophylaxis Start Date: 10/22/23 Status: Ordered Vitamin C 25 mg oral tablet, chewable (5 sources)Start: 80-18-0069cxty 1 tablet by mouth once daily as neededVitamin C 25 mg oral tablet, chewable 25 mg = 1 tab(s), Chewed, Daily, PRN Prophylaxis Start Date: 10/22/23 Status: Ordered Completed/Discontinued Medications MedicationDrug Class(es)DatesSig (Normalized)Sig (Original)dextromethorphan hydrobromide 15 mg / guaiFENesin 400 mg / pseudoephedrine hydrochloride 60 mg oraltablet (2 sources)alpha-Adrenergic Agonist, Uncompetitive V-tihlvc-H-aspartate Receptor Antagonist, Sigma-1 AgonistStart: 13-79-0477lusi 4 tablets by mouth every twenty-four hours as neededCapmist DM 60-15-400 MG as needed Orally every 4-6 hours as needed, max 4 tablets in 24 hours for 5days Jul, Not-Taking/PRN dextromethorphan hydrobromide 30 mg / pyrilamine maleate 30 mg oral tablet (2 sources)Uncompetitive A-vacmio-U-aspartate Receptor Antagonist, Sigma-1 AgonistStart: 23-24-7046Wacolj DMT 30-30 MG 1 tablet Orally every 6-8 hours for 7 days Oct, Not-Taking/PRNfluticasone propionate 0.05 mg/actuat metered dose nasal spray (20 sources)CorticosteroidStart: 11-15-2023 End: 49-43-2619mzjk 2 spray(s) nasal route once dailyfluticasone (Flonase) 50 MCG/ACT nasal spray Indications: Nasal polyposis Administer 2 sprays into each nostril Daily Shake gently. Before first use, prime pump. After use, clean tip and replace cap.48 g 3 11/15/2023 07/21/2024 DiscontinuedStart: 01-03-6642pfaa 1 spray(s) nasal route once daily as neededFlonase Allergy Relief 50 MCG/ACT 1 spray in each nostril Nasally Once a day for 14 day(s) Jul, Not-Taking/PRNStart: 24-23-9309qogk 1 spray(s) nasal route once dailyFlonase Allergy Relief 50 MCG/ACT 1 spray in each nostril Nasally Once a day for 14 day(s) Jul, Activeoseltamivir 75 mg oral capsule (2 sources)Neuraminidase InhibitorStart: 74-20-5882ognm 1 capsule by mouth every twelve hoursTamiflu 75 MG 1 capsule Orally Twice a day for 5 day(s) Oct, Not-Taking/PRNphentermine hydrochloride 37.5 mg oral tablet (20 sources)Sympathomimetic Amine AnorecticStart: 04-09-2024 End: 42-16-2262daie 1 tablet by mouth before mealtimephentermine (Adipex-P) 37.5 MG tablet Indications: Morbid obesity with BMI of 50.0-59.9, [place] [place] Take 1 tablet (37.5 mg) by mouth in the morning. Take before meals. 30 tablet 07/29/2024 04/05/2025 Discontinued (Therapy completed)predniSONE 20 mg oral tablet (2 sources)Start: 77-99-6081wlpb 1 tablet by mouth every twelve hoursprednisone 20 MG 1 tablet Orally BID for 5 Jul, Not-Taking/PRN Problems Active Problems Problem ClassificationProblemDateDocumented DateEpisodic/ChronicAbdominal pain (6 sources)Epigastric pain; Translations: [Unspecified abdominal pain]Onset: 20-61-9695ZfpkmcaxGaevtcvp of white blood cells (20 sources)Elevated white blood cell count, unspecified; Translations: [Leukocytosis]Onset: 05-02-6764HzgpumeXyeyghubcs disorders (2 sources)Esophagitis; Translations: [Esophagitis, unspecified]Episodic Essential hypertension (20 sources)Hypertensive disorder; Translations: [Essential (primary) hypertension]Onset: 695679-28-1658OlhlhkwPdyeuivfkpvwa symptoms and ill- defined conditions (7 sources)Microscopic hematuria; Translations: [Asymptomatic microscopic hematuria]Onset: 87-14-9778NpmfdchuZgsak male genital disorders (1 source)Male erectile dysfunction, unspecified; Translations: [Erectile dysfunction]Onset: 52-88-2004CowsxwsKqphj nutritional; endocrine; and metabolic disorders (20 sources)Body mass index 40+ - severely obese; Translations: [Morbid (severe) obesity due to excess calories]Onset: 093351-89-2470TarysadIkrzw skin disorders (1 source)Follicular disorder, unspecifiedEpisodicOther upper respiratory disease (1 source)Polyp of nasal sinus; Translations: [Other polyp of sinus]Onset: 65-36-4650WlmpaldvGihdf upper respiratory infections (20 sources)Chronic maxillary sinusitis; Translations: [Chronic maxillary sinusitis]Onset: 861532-80-9641TdkfzohPcsfc upper respiratory infections (1 source)Acute upper respiratory infection, unspecifiedEpisodicResidual codes; unclassified (1 source)Sleep apnea, unspecified; Translations: [SLEEP APNEA UNSPECIFIED] Onset: 55-23-7554ImojbiqUuxjggpw codes; unclassified (5 sources)Sleep lnyxp86-92-3595MesygtpRotkcflc codes; unclassified (20 sources)Obstructive sleep apnea syndrome; Translations: [Obstructive sleep apnea (adult) (pediatric)]Onset: 816105-14-2430XgyvetpRrawklbdr and history of mental health and substance abuse codes (1 source)Personal history of nicotine dependence; Translations: [PERSONAL HISTORY OF NICOTINE DEPEND]Onset: 27-72-6944TkjaqlczSzra and subcutaneous tissue infections (2 sources)Cellulitis and abscess of face; Translations: [Facial abscess] EpisodicUrinary tract infections (3 sources)Acute ujuylexu93-94-1716Tkgingya Past or Other Problems Problem ClassificationProblemDateDocumented DateEpisodic/Chronic Administrative/social admission (1 source)Persons encountering health services in other specified circumstances; Translations: [PERS ENC HLTHSRVC OTH CIRCUMSTANCE]Onset: 16-71-1877Iezkweei Mycoses (12 sources)Tinea pedis; Translations: [Tinea pedis]Onset: 730695-71-7703 EpisodicOther lower respiratory disease (18 sources)Disorder of respiratory system; Translations: [Respiratory disorder, unspecified]Onset: 01-07-2024 Resolved: 155336-42-9877ZdrrhajvZvsys screening for suspected conditions (not mental disorders or infectious disease) (5 sources)Encounter for screening for diabetes mellitus; Translations: [Encounter for screening for lipoid disorders]Onset: 70-58-8471YyawsvvwPhttx upper respiratory disease (20 sources)Polyp of nasal cavity and/or nasal sinus; Translations: [Nasal polyp, unspecified]Onset: 147165-33-4522XrvnzzyfVlsfftufjuz; intervertebral disc disorders; other back problems (20 sources)Cervicalgia; Translations: [Stiff neck]Onset: 176650-61-6700 EpisodicUnclassified (1 source)Contact with and (suspected) exposure to covid-19 Z20.822 Results Test NameValueInterpretationReference RangeFacilityTBH UA (CLEAN/CATCH) MICROSCOPIC IF INDICATEon 57-40-8941AJQRUNSHT URINENegativeNEGATIVENOMS HealthcareBLOOD URINENegativeNEGATIVENOMS HealthcareClarity (U)CLEARCLEARNOMS HealthcareColor (U)LT. YELLOWYELLOWNOMS HealthcareGLUCOSE URINE UANegative NEGATIVE mg/dLNOMS HealthcareKetones Ql (U)NegativeNEGATIVE mg/dLNOMS Healthcare Leukocyte esterase Test strip Ql (U)NegativeNEGATIVENOMS HealthcareNITRITE URINE NegativeNEGATIVENOMS HealthcarepH (U)7.0 [pH]5.0 - 9.0NOMS HealthcarePROTEIN URINENegativeNEG/TRACE mg/dLNOMS HealthcareSPECIFIC GRAVITY URINE1.0151.005 - 1.025NOMS HealthcareURINE MICROSCOPIC INDICATEDNONOMS HealthcareUROBILINOGEN URINE0.2 EU/dL0.2 - 1.0 EU/dLNOMS HealthcareCLINISYNCNOMS HealthcareC Urineon 02-72-0883Jwffrzss identified Cx Nom (U)Microbiology PROCEDURE: Urine Culture [R1] SOURCE: U CleanCatch BODY SITE: COLLECTED DATE/TIME: 04/16/2024 11:22 EDT RECEIVED DATE/TIME: 04/17/2024 10:37 EDT START DATE/TIME: 04/17/2024 10:37 EDT FREE TEXT SOURCE: Diana Reyes Alysha J FINAL REPORTS Final Report [] Verified Date/Time: 04/19/2024 08:41 EDT No growth at 2 days. Performing Locations R1: This test was performed at: [facility], [address] [place] [address], [address] , , PdqzbkSpvdfvAultman HospitalComment on above:Performed By: #### [id number] #### [facility] [address] [place] [address] 14[address]Xwjotncags Visit Summaryon 69-25-8314Kexprzjpzn Visit Summary Ambulatory Visit Summary NEAL SEYMOUR :1985 Visit Date:04/16/2024 Ambulatory Visit Instructions Your Diagnosis Nocturia Asymptomatic microscopic hematuria ED (erectile dysfunction) Your Care Team Attending Physician - Diana Reyes Primary Care Physician - JIL COLLINS, [facility] This Is Your Medications List Contact prescribing physician if questions or concerns ascorbic acid (Vitamin C 25 mg oral tablet, chewable) bifidobacterium-lactobacillus (Probiotic 10 Ultra Strength) hydrochlorothiazide-losartan (hydrochlorothiazide-losartan 25 mg-100 mg Tab) multivitamin with minerals (Centrum Men's oral tablet) omega-3 polyunsaturated fatty acids (Fish Oil 500 mg oral capsule) Procedures Performed Endoscopic ethmoidectomy with turbinectomy (11/07/2023), Ethmoidectomy, Lipoma, Tonsillectomy. Discharge Vitals Heart Rate (Peripheral) 68 Blood Pressure 128/74 Height 181 cm Height 71 in Weight 176 kg Weight 387.2 lb BMI 53.72 What to do next You Need to Schedule the Following Appointments Follow Up with Diana Reyes, URL When: Within 1 year Comments: pending results of cx/micro Where: Medications What How Much When Instructions Unchanged ascorbic acid (Vitamin C 25 mg oral tablet, chewable) 1 Tablets Chewed Every day as needed for Prophylaxis Contact prescribing physician if questions or concerns Unchanged bifidobacterium-lactobacillus (Probiotic 10 Ultra Strength) 1 Capsules By Mouth Every dayas needed for Prophylaxis Contact prescribing physician if questions or concerns Unchanged hydrochlorothiazide-losartan (hydrochlorothiazide-losartan 25 mg-100 mg Tab) 1 Tablets ByMouth Every day Contact prescribing physician if questions or concerns Unchanged multivitamin with minerals (Centrum Men's oral tablet) 1 Tablets By Mouth Every day as needed for Prophylaxis Contact prescribing physician if questions or concerns Unchanged omega-3 polyunsaturated fatty acids (Fish Oil 500 mg oral capsule) 2 Capsules By Mouth 2 times a day as needed for Prophylaxis Contact prescribing physician if questions or concerns Allergies No Known Medication Allergies Problems Ongoing - Any problem that you are currently receiving treatment for. Acute cystitis without hematuria Chronic maxillary sinusitis Leukocytosis Morbid obesity with BMI of 50.0-59.9, adult Nasal polyposis Neck stiffness Nocturia NORBERTO (obstructive sleep apnea) Patient Survey You may receive a survey via text or e-mail asking about your office visit. Please share your experience with us by completing your survey. We appreciate your feedback and thank you for choosing us for your care. Education Materials Erectile Dysfunction Erectile dysfunction (ED) is the inability to get or keep an erection in order to have sexual intercourse. ED is considered a symptom of an underlying disorder and is not considered a disease. ED mayinclude: ? Inability to get an erection. ? Lack of enough hardness of the erection to allow penetration. ? Loss of erection before sex is finished. What are the causes? This condition may be caused by: ? Physical causes, such as: ? Artery problems. This may include heart disease, high blood pressure, atherosclerosis, and diabetes. ? Hormonal problems, such as low testosterone. ? Obesity. ? Nerve problems. This may include back or pelvic injuries, multiple sclerosis, Parkinson's disease, spinal cord injury, and stroke. ? Certain medicines, such as: ? Pain relievers. ? Antidepressants. ? Blood pressure medicines and water pills (diuretics). ? Cancer medicines. ? Antihistamines. ? Muscle relaxants. ? Lifestyle factors, such as: ? Use of drugs such as marijuana, cocaine, or opioids. ? Excessive use of alcohol. ? Smoking. ? Lack of physical activity or exercise. ? Psychological causes, such as: ? Anxiety or stress. ? Sadness or depression. ? Exhaustion. ? Fear about sexual performance. ? Guilt. What are the signs or symptoms? Symptoms of this condition include: ? Inability to get an erection. ? Lack of enough hardness of the erection to allow penetration. ? Loss of the erection before sex is finished. ? Sometimes having normal erections, but with frequent unsatisfactory episodes. ? Low sexual satisfaction in either partner due to erection problems. ? A curved penis occurring with erection. The curve may cause pain, or the penis may be too curved toallow for intercourse. ? Never having nighttime or morning erections. How is this diagnosed? This condition is often diagnosed by: ? Performing a physical exam to find other diseases or specific problems with the penis. ? Asking you detailed questions about the problem. ? Doing tests, such as: ? Blood tests to check for diabetes mellitus or high cholesterol, or to measure hormone (more contentnot included)...NormalProtestant HospitalURINALYSIS Ordered By: SYSTEM SYSTEM on 51-85-9792Yqoselujh Ql (U)NegativeNormal Negativemg/dLINTEGRIS [facility]AMI [facility] [place] UA Auto SSClarity (U)Clear (04/16/24 11:22 AM)NormalClearFTM UA Auto SSColor (U)Light-Yellow 1 (04/16/24 11:22 AM)NormalYellowINTEGRIS MIAMI HOSPITAL [facility] [place] UA Auto SSComment on above:Interpretive Data: Microscopic readings are only performed on those samples that meet specific criteria set forth by [facility].Glucose Ql (U) NegativeNormalNegativemg/dLINTEGRIS MIAMI HOSPITAL [facility] [place] UA Auto SSHemoglobin Auto test strip (U) [Mass/Vol]NegativeNormalNegativemg/dLFT UA Auto SSKetones Auto test strip Ql (U)NegativeNormalNegativemg/dLFT UA Auto SSLeukocyte esterase Auto test strip Ql (U)NegativeNormalNegativeLeu/uLFT UA Auto SSNitrite Auto test strip Ql (U) NegativeNormalNegativemg/dLINTEGRIS MIAMI HOSPITAL [facility] [place] UA Auto SSpH (U)7.0 *NA* (04/16/24 11:22 AM)Invalid Interpretation Code5.0 - 9.0[facility] [place] [facility]A Auto SSProtein Ql (U)NegativeNormalNegativemg/dLFT UA Auto SSSpecific gravity (U) [Rel density] 1.011 *NA* (04/16/24 11:22 AM)Invalid Interpretation Code1.005 - 1.030FT UA Auto SS Urobilinogen (U) [Mass/Vol]NegativeNormalNegativemg/dLINTEGRIS MIAMI HOSP[facility] [place] UA Auto SSURINALYSIS Ordered By: Lulú Vick on 28-94-9429TZ Spec DescClean Catch (04/16/24 11:22 AM)NormalINTEGRIS MIAMI HOSPITAL – [place] UA Auto SSUrinalysis with Microon 04-16-2024 Bilirubin Ql (U)NegativeNormalNegativeProtestant HospitalComment on above:Performed By: #### [id number] #### [facility] [address], [place] [address]Vejpgik (U)ClearNormalClearProtestant HospitalComment on above:Performed By: #### [id number] #### [facility] [address], [place] [address]Czqct (U)Light-YellowNormalYellowProtestant Hospital Comment on above:Result Comment: Microscopic readings are only performed on those samples that meet specific criteria set forth by [facility].Performed By: #### [id number] #### [facility] [address], [place] [address]Rniagmi Ql (U)Community HealthrmalNegAdena [facility] Comment on above:Performed By: #### [id number] #### [facility] [address], [place] [address]Oghhvquqfo Auto test strip (U) [Mass/Vol]NegativeNormalNegative Protestant HospitalComment on above:Performed By: #### [id number] #### [facility] [address], [place] [address]Vsckgzj Auto test strip Ql (U)NegativeNormalNegativeProtestant HospitalComment on above:Performed By: #### [id number] #### [facility] [address], [place] [address]Haecpodys esterase Auto test strip Ql (U)NegativeNormalNegative Protestant HospitalComment on above:Performed By: #### [id number] #### [facility] [address], [place] [address]Diyuehg Auto test strip Ql (U)NegativeNormalNegAdena Fayette Medical CenterComment on above:Performed By: #### [id number] #### [facility] [address], [place] [address]eD (U)7.0 [pH]Invalid Interpretation Code5.0-9.0Protestant HospitalComment on above:Performed By: #### [id number] #### [facility] [address], [place] [address]Auayliw Ql (U)NegativeNormalNegAdena Fayette Medical Center Comment on above:Performed By: #### [id number] #### [facility] [address] [place] [address]Alhximgm gravity (U) [Rel density]1.011Invalid Interpretation Code1.005-1.030Protestant HospitalComment on above:Performed By: #### [id number] #### [facility] [address] [place] [address]Zdgyonzhulna (U) [Mass/Vol]NegativeNormalNegAdena Fayette Medical CenterComment on above:Performed By: #### [id number] #### [facility] [address] [place] [address]Ztyi of Urine collection methodCleMount St[address] Mary HospitalComment on above:Performed By: #### [id number] #### [facility] [address] [place] [address]VU NOTEon 31-98-3930FL NOTEHNO ID: [id number] Author: GAMALIEL RÍOS RN Service: Emergency Medicine Author Type: Registered Nurse Type: ED Notes Filed: 03/29/2024 00:08 Note Text: Pt LWBS after triage.NormalParkview Health Montpelier HospitalXR CHEST 2Von 00-09-4247[address] [address] XRay Report Signed Patient: NEAL SEYMOUR MR#: [id number] : 1985 Acct:[id number] Age/Sex: 38 / M ADM Date: 01/09/24 Loc: LAB Attending Dr: Shaikh Jil Cannon Ordering Physician: Shaikh Stephanie Ley. Date of Service: 01/09/24 Procedure(s): XR chest 2V Accession Number(s): [id number] cc: Shaikh Davis Ley [place] [id number] Patient Name: NEAL SEYMOUR MRN: [id number] date: 1985 Sex: M Assigned Patient Location: LAB Current Patient Location: LAB Accession/Order Number: [id number] Exam Date: 01/09/2024 15:30 Report Date: 01/09/2024 [...] acute cardiopulmonary process Electronically authenticated by: MERLE BELTRAN Date: 01/09/2024 16:11 Dictated By: Merle Beltran M.D. Signed By: 01/09/24 1613 DD/ 1611 TD/TT: Radiation Protection Specialist:TBHRadiology, Radiologist, MD - 01/09/2024 [place] [address] XRay Report Signed Patient: NEAL SEYMOUR MR#: [id number] : 1985 Acct:[id number] Age/Sex: 38 / M ADM Date: 01/09/24 Loc: LAB Attending Dr: Shaikh Jil Cannon Ordering Physician: Shaikh Davis Ley Date of Service: 01/09/24 Procedure(s): XR chest 2V Accession Number(s): [id number] cc: Shaikh Davis Ley [address] [address] Patient Name: NEAL SEYMOUR MRN: [id number] date: 1985 Sex: M Assigned Patient Location: LAB Current Patient Location: LAB Accession/Order Number: [id number] Exam Date: 01/09/2024 15:30 Report Date: 01/09/2024 [...] acute cardiopulmonary process Electronically authenticated by: MERLE BELTRAN Date: 01/09/2024 16:11 Dictated By: Merle Beltran M.D. Signed By: 01/09/24 1613 DD/ 1611 TD/TT: Radiation Protection Specialist: GABRIELLA HealthcareRadiology Study observation (narrative)[facility] HealthcareXR CHEST 2V Ordered By: Radiologist Radiology on 90-79-6925XQ[facility] Work Phone: IntraOperative Documentson [id number] [id number]#1.00TIFFNormGerman HospitalPostoperative Documentson [id number] Documents [id number]#1.00TIFFNormGerman HospitalMain OR Intraoperative Recordon 32-78-1202Ijvl OR Intraoperative Record IntraOp Document Type FT Summary Primary Physician: Shawn Conner MD Finalized Date/Time: 11/12/23 09:06:54 Pt. Name: NEAL SEYMOUR/Sex: 1985 Male Med Rec #: [id number] Physician: Dalila COLLINS, Shawn Poe Financial #: [id number] Pt. Type: A Room/Bed: Admit/Disch: 11/07/23 06:53:06 [...] 1 Entry 2 Entry 3 Case Attendee Mitti DNP, REGIONAL ENGINEER, Queen Dalila COLLINS, Shawn Johnston RN, Daniel Euceda Role Performed REGIONAL ENGINEER Surgeon - Primary Production Consultant - Primary Time In 11/07/23 09:21:00 11/07/23 09:49:00 11/07/23 09:21:00 Time Out 11/07/23 10:24:00 11/07/23 10:19:00 11/07/23 10:24:00 Procedure ANTROSTOMY TURBINECTOMY ANTROSTOMY TURBINECTOMY ANTROSTOMY TURBINECTOMY ETHMOIDECTOMY ETHMOIDECTOMY ETHMOIDECTOMY IM(Bilateral) IM(Bilateral) IM(Bilateral) Comments , anesthesia publications production supervisor Last Modified By: Teressa APPLIANCE LINE ASSEMBLER, Kaylie Johnston RN, Daniel Johnston RN, Daniel Rausch 11/12/23 09:00:41 11/07/23 10:24:51 11/07/23 10:24:51 Entry 4 Entry 5 Entry 6 Case Attendee Deepa, Michelle Pierce RN, Skylar Richardson APPLIANCE LINE ASSEMBLER, Rob Wilkerson Role Performed Scrub - Primary Staff - Other Staff - Other Time In 11/07/23 09:21:00 11/07/23 09:21:00 11/07/23 09:21:00 Time Out 11/07/23 10:24:00 11/07/23 09:57:00 11/07/23 09:50:00 Procedure ANTROSTOMY TURBINECTOMY ANTROSTOMY TURBINECTOMY ANTROSTOMY TURBINECTOMY ETHMOIDECTOMY ETHMOIDECTOMY ETHMOIDECTOMY IM(Bilateral) IM(Bilateral) IM(Bilateral) Comments positioning help positioning help Last Modified By: Vickie DURON, Daniel Johnston RN, Daniel Morataya RN 11/07/23 10:24:51 11/07/23 10:24:51 11/07/23 10:24:51 Perioperative [...] Complete 11/07/23 09:51:00 Participants Dalila Euceda MD, Shawn Poe, Vickie DURON, Deepa Jay Madison A, Saflund [...] 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 Yes Last Modified By: Daniel Johnston RN 11/07/23 10:08:58 P (more content not included)...[facility] HospitalProgress Note-Physicianon 76-61-1565Qpxknyvz Note-PhysicianPatient: NEAL SEYMOUR Age: 38 years Sex: Male : 1985 Associated Diagnoses: None Author: MD Michelle, Mac Cruz Postoperative Information Postoperative disposition: Postoperative disposition: To PACU. Optimetrix number: Optimetrix number [id number]. Anesthetic utilized: General. Health Status Allergies: Allergic [...] Discharge when meets criteria ( To home ).[facility] HospitalComment on above:Result Comment: Electronically Signed By: MD Martinez Ahmad F\.br\Date and Time Signed: 11/11/23 08:00 ESTProgress Note-PhysicianPatient: NEAL SEYMOUR Age: 38 years Sex: Male : 1985 Associated Diagnoses: None Author: MD Martinez Ahmad F Preoperative Information Time patient last ate or drank:=== (npo 8 hours) Anesthesia history: Patient history: No prior anesthesia problems. Re-evaluation prior to induction: Completed, Initial evaluation reviewed. Review of Systems Respiratory: No shortness of breath. Cardiovascular: No chest pain. Hematology/Lymphatics: No bruising tendency, No bleeding tendency. Health [...] = 1 tab(s), Chewed, Daily, PRN Prophylaxis hydrochlorothiazide-losartan 25 mg-100 mg Tab: 1 tab(s), Oral, Daily, High blood pressure Problem list: All Problems Hypertension / SNOMED CT 2805553173 / Confirmed Sleep apnea / SNOMED CT 435965840 / Confirmed Histories Past Medical History: No active or resolved past medical history items have been selected or recorded. Family History: No family history items have been selected or recorded. Procedure history: Endoscopic ethmoidectomy with turbinectomy (5629262277) on 11/07/2023 at 38 Years. Ethmoidectomy (22253473). Lipoma removal of back (318861127). Tonsillectomy (948750953). Social History Social & Psychosocial Habits Alcohol [...] results Radiology results ECG interpretation Condition Plan [place] [employer] Anesthesiologists (ASA) physical status classification: Class III. Anesthetic Preoperative Plan Anesthesia: General. . Anesthetic plan, risks, benefits, and alternatives discussed with the patient and/or family. Risks discussed: nausea, vomiting, headache, sore throat, dental injury, serious complications. Patient verbalized understanding. Communication: face to face with patient 5 minutes.[facility] HospitalComment on above:Result Comment: Electronically Signed By: MD Michelle, Mac Moreira.br\Date and Time Signed: 11/11/23 07:58 ESTConsent for Anesthesiaon 17-89-7110Popezcf for [id number]#1.00[facility] SystemDischarge Instructionson 84-04-3151Bdfebsmmm Instructions [id number]#1.00[facility] SystemIntraOperative Documentson 25-31-0680DrnciFknwacyts Documents [id number]#1.00[facility] SystemOutside Recordson 45-36-7744Xdgmiuz Records [id number]#1.00[facility] SystemPre-Op Checkliston 95-35-1511Poo-Op Checklist [id number]#1.00[facility] SystemPreoperative Documentson 22-69-6238Iepbafeilepi Documents [id number]#1.00[facility] SystemConsent for Procedure/Surgeryon 02-31-1446Xewxaci for Procedure/Surgery [id number]#1.00TIFCommunity Memorial HospitalConsent for Treatmenton 26-58-2308Rvzicbx for Treatment [id number]#1.00TIFCommunity Memorial HospitalDischarge Instructionson 29-42-9182Swkzcdvnd Instructions NEAL SEYMOUR :1985 Visit Date:11/07/2023 Inpatient Discharge Instructions Your Care Team Admitting Physician - Shawn Conner MD Referring Physician - Shawn Conner MD Reason for Your Visit CHRONIC MAXILLARY SINUSITIS, NASAL POLYPS Your Diagnosis Chronic maxillary sinusitis Polyp, maxillary sinus Tests Performed Pathology Tissue Exam -- Results Pending -- Please visit your patient portal for your results or contact your primary care physician. This Is Your Medications List ascorbic acid (Vitamin C 25 mg oral tablet, chewable) bifidobacterium-lactobacillus (Probiotic 10 Ultra Strength) hydrochlorothiazide-losartan (hydrochlorothiazide-losartan 25 mg-100 mg Tab) multivitamin with minerals [...] Up Appointments after Discharge Follow Up with Shawn Conner When: In 8 days 11/15/2023 EST Where: [address] [place] [address], [address] [place] [phone] Business (1) Medications What How Much When Instructions Next Dose Unchanged ascorbic acid (Vitamin C 25 mg oral tablet, chewable) 1 Tablets Chewed Every day as needed for Prophylaxis Unchanged bifidobacterium-lactobacillus (Probiotic 10 Ultra Strength) 1 Capsules By Mouth Every dayas needed for Prophylaxis Unchanged hydrochlorothiazide-losartan (hydrochlorothiazide-losartan 25 mg-100 mg Tab) 1 Tablets ByMouth Every day Unchanged multivitamin with minerals (Centrum [...] instructions. If you have problems, contact your healthcare provider. Medicines ? Take or use bbca-pwf-aapdrzk and prescription medicines only as told by [...] discomfort that does not get better with xris-jyl-deooxqo medicine. ? You have a fever. ? [...] if you have bleedin (more content not included)...Normal Protestant HospitalComment on above:Result Comment: Electronically Signed By: Vernon DURON, Martin Castaneda\.br\Date and Time Signed: 11/07/23 11:25 ESTH&P Updateon 11-07-2023H&P [id number]#1.00TIFF [facility] HospitalInpatient Patient Summaryon 15-55-8431Jdsmeapuw Patient Summary [place] [id number] [facility] Clinical Discharge Instructions PERSON INFORMATION Name: NEAL SEYMOUR PHYSICIANS Admitting Physician: Shawn Conner MD Attending Physician: Shawn Conner MD PCP: JIL COLLINS, [facility] Discharge Diagnosis: Chronic maxillary sinusitis; Polyp, maxillary sinus Comment: PATIENT EDUCATION INFORMATION Instructions: Medication Leaflets: Follow up: With: Address: When: Shawn Conner [address] [place] [address], [address] [place] [phone] Business (1) In 8 days 11/15/2023 MEDICATION LIST Medications to Continue with No Changes Other Medications ascorbic acid (Vitamin C 25 mg oral tablet, chewable) 1 Tablets Chewed every day as needed Prophylaxis. bifidobacterium-lactobacillus (Probiotic 10 Ultra Strength) 1 Capsules By Mouth every day as neededProphylaxis. hydrochlorothiazide-losartan (hydrochlorothiazide-losartan 25 mg-100 mg Tab) 1 Tablets By Mouth every day. multivitamin with minerals (Centrum Men's oral tablet) 1 Tablets By Mouth every day as needed Prophylaxis. omega-3 polyunsaturated fatty acids (Fish Oil 500 mg oral capsule) 2 Capsules By Mouth 2 times a day as needed Prophylaxis. Comment:Rubén Robins [facility] CenterMain OR PACU I Recordon 62-56-8859Otbs OR PACU I RecordPACU Phase I Document Type FT Summary Primary Physician: Shawn Conner MD Finalized Date/Time: 11/07/23 11:18:33 Pt. Name: ASHLY NEAL Hassan/Sex: 1985 Male Med Rec #: [id number] Physician: Shawn Conner MD Financial #: [id number] Pt. Type: A Room/Bed: [facility] Admit/Disch: 11/07/23 06:53:06 - Institution: Case Times [...] individualized perioperative plan of care The patient's rightto privacy is maintained The patient's value system, [...] with or improved from baseline levels established preoperativelyThe patient's cardiovascular status is consistent with or improved from baseline levels established preoperatively The patient's cardiovascular status is consistent with or improved from baseline levels established preoperatively The patient demonstrates and/or reports adequate pain control throughout the perioperative period The patient received appropriate medication(s), safely administered during the perioperativeperiod Acuity Level PACU I FT Entry 1 Start Time 11/07/23 10:26:00 Stop Time 11/07/23 10:56:00 Acuity Level Acuity Level I Last Modified By: Bertha Tolentino I 11/07/23 11:18:29 Finalized By: Bertha Tolentino I Document Signatures Signed By: Bertha Tolentino I 11/07/23 11:18[facility] HospitalMain OR PACU II Recordon 87-40-1483Ojvl OR PACU II RecordPACU Phase II Document Type FT Summary Primary Physician: Shawn Conner MD Finalized Date/Time: 11/07/23 11:42:21 Pt. Name: NEAL SEYMOUR/Sex: 1985 Male Med Rec #: [id number] Physician: Shawn Conner MD Financial #: [id number] Pt. Type: A Room/Bed: [place] [address] Admit/Disch: 11/07/23 06:53:06 - Institution: Case Times [...] and monitors body temperature Evaluates postoperative respiratory statusEvaluates postoperative cardiac status Evaluates postoperative neurological status [...] individualized perioperative plan of care The patient's rightto privacy is maintained The patient's value system, [...] with or improved from baseline levels established preoperativelyThe patient's cardiovascular status is consistent with or improved from baseline levels established preoperatively The patient's neurological status is consistent with or improved from baseline levels established preoperatively The patient demonstrates and/or reports adequate pain control throughout the perioperative period The patient received appropriate medication(s), safely administered during the perioperativeperiod Finalized By: Martin Junior RN Document Signatures Signed By: Martin Junior RN 11/07/23 11:42[facility]Main OR Preoperative Recordon 52-31-8480Ifit OR Preoperative RecordPreOp Document Type FT Summary Primary Physician: Shawn Conner MD Finalized Date/Time: 11/07/23 09:28:29 Pt. Name: NEAL SEYMOUR/Sex: 1985 Male Med Rec #: [id number] Physician: Shawn Conner MD Financial #: [id number] Pt. Type: A Room/Bed: Admit/Disch: 11/07/23 06:53:06 [...] Signatures Signed By: Daniel Johnston RN 11/07/23 09:28[facility] HospitalMonitor Record on 01-50-3529Ntonesg [id number]#1.00TIFF [facility] HospitalMonitor Record [id number]#1.00TIFCommunity Memorial HospitalOperative Reporton 31-03-3851Gxggxnoif ReportSURGERY DATE: 11/07/2023 PREOPERATIVE DIAGNOSIS: Chronic maxillary sinusitis [...] taken back to the Operating Room where hewas placed in a supine position. After induction [...] sinus was identified using a curved suction throughand having found a punctate residual antrostomy. Then using straight and back biting ethmoid forceps, the antrostomy was enlarged. The sinus was again copiously irrigated. The patient was then awakened and taken to the Recovery Room in good condition. Shawn Conner Jr., M.D. Dictated: 11/07/2023 [id number] Transcribed: 11/07/2023 *ShaikH Jil M.D.[facility] HospitalComment on above:Result Comment: Electronically Signed By: Shawn Conner MD\.br\Date and Time Signed: 11/07/23 13:28 ESTOutpatient Surgery Discharge Instructionon 11-07-2023 Outpatient Surgery Discharge Instruction [place] [address] Patient Discharge Instructions PERSON INFORMATION Name: NEAL SEYMOUR Date of : 1985 Current Date: 11/07/2023 10:54:23 PHYSICIANS Admitting Physician: Shawn Conner MD Discharge Diagnosis: Chronic maxillary sinusitis; Polyp, maxillary sinus NEAL SEYMOUR has been given the following list [...] THE NEAREST EMERGENCY ROOM OR CALL 911 ASHLY Escobedo BEN J, have received the attached patient education materials/instructions and have verbalized understanding: May we do a follow up call? Yes No I was present when discharge instructions were given Patient Signature Date Clinican/Nurse Signature Date Follow up: With: Address: When: Shawn Conner [address] [place] [address], [address] [place] [address] Business (1) In 8 days 11/15/2023 Pharmacy [...] to serve you. Thank you for choosing [facility] HERE ARE THE MEDICATION CHANGES THAT OCCURRED DURING YOUR HOSPITAL STAY Medications to Continue with No Changes Other Medications ascorbic acid (Vitamin C 25 mg oral tablet, chewable) 1 Tablets Chewed every day as needed Prophylaxis. bifidobacterium-lactobacillus (Probiotic 10 Ultra Strength) 1 Capsules By Mouth every day as neededProphylaxis. hydrochlorothiazide-losartan (hydrochlorothiazide-losartan 25 mg-100 mg Tab) 1 Tablets By Mouth every day. multivitamin with minerals (Centrum Men's oral tablet) 1 Tablets By Mouth every day as needed Prophylaxis. omega-3 polyunsaturated fatty acids (Fish Oil 500 mg oral capsule) 2 Capsules By Mouth 2 times a day as needed Prophylaxis. PATIENT EDUCATION INFORMATION Instructions: Medication Leaflets:[facility] HospitalPatient Education - Texton 69-77-7699Rcxabhm Education - Text ENT Sinus Endoscopy, Care [...] instructions. If you have problems, contact your healthcare provider. Medicines ? Take or use cyvh-rhi-gdwiwny and prescription medicines only as told by [...] after the procedure, or as told by yourhealth care provider. This helps to decrease inflammation. ? Do not smoke or use any products that contain nicotine or tobacco. If you need help quitting, askyour health care provider. ? Return to your normal activities when your health care provider says that it is safe. ? Keep all follow-up visits. Contact a health care provider if: ? You have pain or discomfort that does not get better with feqb-vge-vfawzws medicine. ? You have a fever. ? [...] after the procedure, or as told by yourhealth care provider. This helps to decrease inflammation. ? Get help right away if you have bleeding from your nose that does not stop. This information is not intended to replace advice given to you by your health care provider. Make sure you discuss any questions you have with your health care provider. Document Revised: 08/15/2022 Document Reviewed: 08/15/2022 [employer] Patient Education ? 2022 [employer] BMPon 47-86-5020Kcnmd gap [Moles/Vol]10 mmol/LNormal6-16[facility]ant HospitalComment on above:Performed By: #### [id number], [id number] ####[facility] [address] [place], [place] [address]EFG/Creat Ratio19 No MucltDkfhdb67-58SganfsProtestant HospitalComment on above:Performed By: #### [id number], [id number] ####[facility] [address] [place], [place] [address]Hvmwujx [Mass/Vol]8.9 mg/dLNormal8.9-11.1FTrumbull Memorial HospitalComment on above:Performed By: #### 7241218, [id number] ####[facility] [address] [place], [place] [address]Kqdfgqnd [Moles/Vol]106 mmol/XJriqcd232-438XkywdqProtestant HospitalComment on above: Performed By: #### 2361643, 13962741 ####[facility] [address] [place], [place] [address]CF2 [Moles/Vol]26 mmol/QIimmyv95-57 Protestant HospitalComment on above:Performed By: #### 1318479, 05118880 ####[address] [address] Creatinine [Mass/Vol]0.9 mg/dLNormal0.5-1.3FTrumbull Memorial HospitalComment on above:Performed By: #### 6631003, [id number] ####[address] [address]Ewgtbsf [Mass/Vol]98 mg/dLNormal 55-199Protestant HospitalComment on above:Performed By: #### 8240825, [id number] ####[address] [address]Jemvawdij [Moles/Vol]3.8 mmol/LNormal3.5-5.3FTrumbull Memorial Hospital Comment on above:Performed By: #### 6543271, 78166826 ####[address] [address]Qbqmhm [Moles/Vol]138 mmol/L Eeltrw517-574NsanhcProtestant HospitalComment on above:Performed By: #### 6873447, 47693022 ####[address] [address]Aniq nitrogen [Mass/Vol]17 mg/dLNormal5-21Protestant HospitalComment on above:Performed By: #### 2465665, 21740825 ####[address] [address]CZL w/ Auto Diff on 98-15-3480Skxrrrip Absolute0.1 E9/LNormal0.0-0.2FTrumbull Memorial Hospital Comment on above:Performed By: #### [id number], 8116940 ####[address] [address]Inlkdtmhe/100 WBC (Bld)0.5 % Normal0.0-2.0Protestant HospitalComment on above:Performed By: #### 23501635, 8081154 ####[address] [address]Crv Absolute0.3 E9/LNormal0.0-0.5FTrumbull Memorial Hospital Comment on above:Performed By: #### 05132258, 2045257 ####[address] [address]Ylanrlhdvgr/100 WBC (Bld)2.5 % Normal0.0-8.0Protestant HospitalComment on above:Performed By: #### 05222695, 0732282 ####[address] [address]Qxgxypvjpnv distribution width (RBC) [Ratio]13.8 %Normal 10.9-14.2FTrumbull Memorial HospitalComment on above:Performed By: #### 12325111, 0890218 ####[address] [address]Ihysyftxjg (Bld) [Volume fraction]38.0 %Ijacws66.7-49.0 Protestant HospitalComment on above:Performed By: #### 31834500, 5019794 ####[address] [address] Hemoglobin (Bld) [Mass/Vol]12.7 g/dLLow13.5-17.5FTrumbull Memorial Hospital Comment on above:Performed By: #### 18409933, 3086957 ####[address] [address]Vqnbs Absolute2.4 E9/LNormal 1.0-4.0Protestant HospitalComment on above:Performed By: #### 37072906, 0106690 ####[address] [address]Ualpbjyjwhr/100 WBC (Bld)18.5 %Vjzlbd56.0-50.0[facility] Comment on above:Performed By: #### 93203954, 2946569 ####[address], [place] [address]SWV (RBC) [Entitic mass]26.9 pgLow27.0-34.0Protestant HospitalComment on above:Performed By: #### 69869681, 6168046 ####[address] [address]TTTH (RBC) [Mass/Vol]33.3 g/gQWxjfdr16.4-36.0Protestant HospitalComment on above:Performed By: #### 87653264, 3573845 ####[address] [address]WVN (RBC) [Entitic vol]80.9 hCKcdkxy30.0-100.0Protestant HospitalComment on above: Performed By: #### 12872884, 3136934 ####[address] [address]Lfya Absolute0.9 E9/LNormal0.2-1.0 Protestant HospitalComment on above:Performed By: #### 44739249, 8011366 ####[address] [address] Monocytes/100 WBC (Bld)6.9 %Normal4.0-14.0Protestant HospitalComment on above:Performed By: #### 45804190, 1300770 ####[address] [address]Dxfqcz Absolute9.5 E9/LHigh2.0-7.5 Protestant HospitalComment on above:Performed By: #### 22928632, 6920058 ####[address] [address] Neutro Auto71.6 %Rnjcke08.0-75.0Protestant HospitalComment on above: Performed By: #### 06720884, 4577849 ####[address] [address]Dqhswbiy932.0 E9/CSggotb149.0-500.0 Protestant HospitalComment on above:Performed By: #### 89612577, 6865114 ####[facility] [address] [place] [address] Platelet mean volume (Bld) [Entitic vol]7.9 fLNormal6.4-10.8Protestant HospitalComment on above:Performed By: #### 96857844, 1828317 ####[address] [address]WQC6.7 E12/LNormal 4.3-5.9Protestant HospitalComment on above:Performed By: #### 23079558, 2219452 ####[address] [address]EJR76.2 E9/LHigh4.0-11.0Protestant HospitalComment on above: Performed By: #### 41710416, 0810779 ####[address] [address]BGAKYHTDAKxxblup By: SYSTEM SYSTEM on 44-23-0657Kxtar gap [Moles/Vol]10 mmol/LNormal6 - 16 mEq/LRemisol ChemCalcium [Mass/Vol]8.9 mg/dLNormal8.9 - 11.1 mg/dLRemisol ChemChloride [Moles/Vol]106 mmol/TDhkfhy875 - 111 mmol/LRemisol ChemCO2 [Moles/Vol]26 mmol/ELllcay59 - 31 mmol/LRemisol ChemCreatinine [Mass/Vol]0.9 mg/dLNormal0.5 - 1.3 mg/dLRemisol ChfjcCRC468 mL/min/1.73 h3Ktlejs>=59mL/min/1.73 l4Twmbmmn ChemGlucose [Mass/Vol] 98 mg/rRJmfrdn44 - 199 mg/dLRemisol ChemPotassium [Moles/Vol]3.8 mmol/LNormal3.5 - 5.3 mmol/LRemisol ChemSodium [Moles/Vol]138 mmol/OYulddz202 - 145 mmol/L Remisol ChemUrea nitrogen [Mass/Vol]17 mg/dLNormal5 - 21 mg/dLRemisol ChemUrea nitrogen/Creatinine [Mass ratio]19 mg/qoHndykk24 - 20Remisol ChemCOAGULATION Ordered By: Flores Santo on 96-36-6414fHZG Coag (PPP) [Time]36.6 sHigh25.1 - 36.5 second(s)[facility] Auto CoagComment on above:Interpretive Data: Parameter 15 days - 4 weeks 1 [...] the same coagulation reagent and instrumentation as [facility]. Currently there are no coagulation studies available worldwide for children to 14 days, andno normal ranges. Heparin therapeutic range (represented by Anti-Factor Xa activity of 0.2 - 0.4 U/mL) corresponds to PTT of 56.6 - 109.0 sec.INR Coag (PPP) [Relative time]1.14 {INR}Invalid Interpretation CodeINTEGRIS MIAMI HOSPITAL – [place] Auto CoagComment on above:Interpretive Data: INR results are specifically intended to assess patients stabilized on long-term Anticoagulation therapy suggested INR s Less Intensive Anticoagulation 2.0 3.0 Conventional Range 3.0 4.5PT Coag (PPP) [Time]12.7 sHigh9.4 - 12.5 second(s)[facility] Auto CoagComment on above:Interpretive Data: 15 days - 4 weeks 1 - [...] the same coagulation reagent and instrumentation as [facility]. Currently there are no coagulation studies available worldwide for children to 14 days, andno normal ranges.Consent for Treatmenton 38-26-3661[place] for Treatment [id number]#1.00[facility] PT & PTTon 79-43-5551VIPL COAGULATION SURFACE INDUCED:TIME:PT:PPP:QN:COAG36.6HMayo Clinic Health System– Red CedarComment on above:Parameter 15 days - 4 weeks 1 - [...] the same coagulation reagent and instrumentation as [facility]. Currently there are no coagulation studies available worldwide for children to 14 days, andno normal ranges. Heparin therapeutic range (represented by Anti-Factor Xa activity of 0.2 - 0.4 U/mL) corresponds to PTT of 56.6 - 109.0 sec. [facility] COAGULATION TISSUE FACTOR INDUCED.INR:RELTIME:PT:PPP:QN:COAG1.14[facility] Psych[facility] HospitalComment on above:INR results are specifically intended to assess patients stabilized on long-term Anticoagulation therapy suggested INR?s ?Less Intensive Anticoagulation? 2.0 ? 3.0 Conventional Range 3.0 ? 4.5 [facility] COAGULATION TISSUE FACTOR INDUCED:TIME:PT:PPP:QN:COAG12.7HMayo Clinic Health System– Red CedarComment on above:15 days - 4 weeks 1 - 5 [...] the same coagulation reagent and instrumentation as [facility]. Currently there are no coagulation studies available worldwide for children to 14 days, andno normal ranges. Interpretation and review of laboratory resultsAbnoLehigh Valley Hospital - HazeltonOriginal Ordering Provider: MD Shawn RubinCenterPointe HospitalHEMATOLOGYOrdered By: SYSTEM SYSTEM on 85-70-6645Icmigpoi Absolute0.1 E9/LNormal0.0 - 0.2 E9/L Remisol HemeBasophils/100 WBC (Bld)0.5 %Normal0.0 - 2.0 %Remisol HemeEos Absolute0.3 E9/LNormal0.0 - 0.5 E9/LRemisol HemeEosinophils/100 WBC (Bld)2.5 % Normal0.0 - 8.0 %Remisol HemeErythrocyte distribution width (RBC) [Ratio]13.8 % Nfiokd06.9 - 14.2 %Remisol HemeHematocrit (Bld) [Volume fraction]38.0 %Normal 37.7 - 49.0 %Remisol HemeHemoglobin (Bld) [Mass/Vol]12.7 g/dLLow13.5 - 17.5 gm/dLRemisol HemeLymph Absolute2.4 E9/LNormal1.0 - 4.0 E9/LRemisol Heme Lymphocytes/100 WBC (Bld)18.5 %Hraovg25.0 - 50.0 %Remisol HemeMCH (RBC) [Entitic mass]26.9 pgLow27.0 - 34.0 pgRemisol HemeMCHC (RBC) [Mass/Vol]33.3 g/dLNormal 31.4 - 36.0 gm/dLRemisol HemeMCV (RBC) [Entitic vol]80.9 uUJplknf43.0 - 100.0 fL Remisol HemeMono Absolute0.9 E9/LNormal0.2 - 1.0 E9/LRemisol HemeMonocytes/100 WBC (Bld)6.9 %Normal4.0 - 14.0 %Remisol HemeNeutro Absolute9.5 E9/LHigh2.0 - 7.5 E9/LRemisol HemeNeutro Auto71.6 %Xfbwjf36.0 - 75.0 %Remisol BbfuXikvoyhp307.0 E9/PWhiqwg389.0 - 500.0 E9/LRemisol HemePlatelet mean volume (Bld) [Entitic vol] 7.9 fLNormal6.4 - 10.8 fLRemisol HemeRBC4.7 E12/LNormal4.3 - 5.9 E12/LRemisol LvuvONS45.2 E9/LHigh4.0 - 11.0 E9/LRemisol HemePT & PTTon 60-32-6514vFCG Coag (PPP) [Time]36.6 second(s)High25.1-36.5[facility]pmc Western MarylandComment on above:Result Comment: Parameter 15 days - 4 weeks 1 [...] the same coagulation reagent and instrumentation as [facility]. Currently there are no coagulation studies available worldwide for children to 14 days, andno normal ranges. Heparin therapeutic range (represented by Anti-Factor Xa activity of 0.2 - 0.4 U/mL) corresponds to PTT of 56.6 - 109.0 sec.Performed By: #### [id number], [id number] ####[facility] [address] [place], [place] [address]FRG Coag (PPP) [Relative time]1.14 {INR}Invalid Interpretation CodeFishberenice Upmc Western MarylandComment on above:Result Comment: INR results are specifically intended to assess patients stabilized on long-term Anticoagulation therapy suggested INR?s ?Less Intensive Anticoagulation? 2.0 ? 3.0 Conventional Range 3.0 ? 4.5Performed By: #### [id number], [id number] ####[facility] [address] [place], [place] [address]IR Coag (PPP) [Time]12.7 second(s)High9.4-12.5[facility]pmc Western MarylandComment on above: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 CarterProtein [Mass/Vol]7.3 g/dLNormal6.1-8.2The [facility] Comment on above:Performed By: #### LIPID, CMP #### [facility] [address] [address] [address] Shi CarterSodium [Moles/Vol]140 mmol/ECeqmag949-917Sel [facility] Comment on above:Performed By: #### LIPID, CMP #### [facility] [address] [address] [address] Shi CarterUrea nitrogen [Mass/Vol]14.0 mg/dLNormal9.0-20.0Glenbeigh HospitalComment on above:Performed By: #### LIPID, CMP #### [facility] [address] [address] [address] Shi CarterUrea nitrogen/Creatinine [Mass ratio]14.1 mg/mgNormalThe St. Francis HospitalComment on above:Performed By: #### LIPID, CMP #### [facility] [address] [address] [address] Shi Carter Vital Signs Date TimeVital SignValuePerforming NyqsofjceQuerlvoq48-17-1122 15:39-0400Body aflpit451 cmLbrayden Grossman ENTREPRENEURIAL FINANCE PROFESSOR Work Phone: [facility] HospitalCshegqpqat69-18-4947 15:39-0400Body mass index (BMI) [Ratio]62.19 kg/m2Linda Grossman ENTREPRENEURIAL FINANCE PROFESSOR Work Phone: [facility] HospitalWgyecbwczd13-41-8500 15:39-0400Body temperature 97.81 [degF]Linda Grossman ENTREPRENEURIAL FINANCE PROFESSOR Work Phone: [facility] HospitalSunmyvapno78-37-3574 15:39-0400Body behgvf458.49 kgLinda Grossman ENTREPRENEURIAL FINANCE PROFESSOR Work Phone: [facility] HospitalQqobrdbyaz85-30-9380 15:39-0400Diastolic blood zugtvmbj585 mm[Hg]Linda Grossman ENTREPRENEURIAL FINANCE PROFESSOR Work Phone: [facility] HospitalKitniydtxr61-33-1572 15:39-0400Heart rate77 /min Linda Grossman ENTREPRENEURIAL FINANCE PROFESSOR Work Phone: [address] [phone] 15:39-0400Respiratory rate24 /minLinda Grossman ENTREPRENEURIAL FINANCE PROFESSOR Work Phone: [facility] HospitalVlxsfkgwec74-83-3717 15:39-8899OmW9% (BldA) [Mass fraction]97 %Linda Grossman ENTREPRENEURIAL FINANCE PROFESSOR Work Phone: [address] [phone] 15:39-0400Systolic blood mm[Hg]Linda Grossman ENTREPRENEURIAL FINANCE PROFESSOR Work Phone: [facility] HospitalBgepawrpsa89-43-2518 15:33-0500Body hjqnbo686.4 cmBriftikhartosha PearceIreland ENTREPRENEURIAL FINANCE PROFESSOR Work Phone: [facility] HospitalMrtcwsmqsz24-44-7947 15:33-0500Body mass index (BMI) [Ratio]46.32 kg/o2Vueumvnp Ireland ENTREPRENEURIAL FINANCE PROFESSOR Work Phone: [address] [phone] 15:33-0500Body temperature 96.6 [degF]Anjel Wintrick ENTREPRENEURIAL FINANCE PROFESSOR Work Phone: [address] [phone] 15:33-0500Body bsgdur312.26 kgBriftikhartosha Ireland ENTREPRENEURIAL FINANCE PROFESSOR Work Phone: [address] [phone] 15:33-0500Diastolic blood bfrgumjm32 mm[Hg]Anjel Ireland ENTREPRENEURIAL FINANCE PROFESSOR Work Phone: [facility] HospitalCurtmfghtu49-83-0335 15:33-0500Heart rate78 /min Anjel Ireland ENTREPRENEURIAL FINANCE PROFESSOR Work Phone: [facility] HospitalEhtpbeoxgr21-22-4227 15:33-0500Respiratory rate16 /minBrittany Ireland ENTREPRENEURIAL FINANCE PROFESSOR Work Phone: [facility] HospitalYoygaromzn67-64-1017 15:33-9204IvL0% (BldA) [Mass fraction]99 %Anjel Ireland ENTREPRENEURIAL FINANCE PROFESSOR Work Phone: [address] [phone] 15:33-0500Systolic blood hlcklexd203 mm[Hg]Anjel Ireland ENTREPRENEURIAL FINANCE PROFESSOR Work Phone: [facility] HospitalJkeotvzxot89-67-9539 15:27-0500Body .4 cmShawn Conner MD Work Phone: [facility] HospitalErqdsizyho54-71-2157 15:27-0500Body mass index (BMI) [Ratio]46.31 kg/h2ZxjlsqShawn Conner MD Work Phone: [facility] HospitalKuxbskrcsu87-07-1820 15:27-0500Body .21 kgShawn Conner MD Work Phone: [address] [phone] 15:27-0500Diastolic blood tnqrpajs86 mm[Hg]Shawn Conner MD Work Phone: [address] [phone] 15:27-0500Systolic blood fszrewgg623 mm[Hg]Shawn Conner MD Work Phone: [address] [phone] 15:50-0400Body mass index (BMI) [Ratio]49.61 kg/p9Misgsiri Ireland ENTREPRENEURIAL FINANCE PROFESSOR Work Phone: [address] [phone] 15:50-0400Body temperature 97.9 [degF]Anjel Ireland ENTREPRENEURIAL FINANCE PROFESSOR Work Phone: noL[facility]eland [facility] HospitalYjcmeieopr73-00-9000 15:50-0400Body .55 kgBranum Ireland ENTREPRENEURIAL FINANCE PROFESSOR Work Phone: [facility] HospitalPwkdqjnymg30-85-4701 15:50-0400Diastolic blood rvpguoae68 mm[Hg]Anjel Ireland ENTREPRENEURIAL FINANCE PROFESSOR Work Phone: [facility] HospitalOroumsktmw23-89-7937 15:50-0400Heart rate74 /min Anjel Ireland ENTREPRENEURIAL FINANCE PROFESSOR Work Phone: [facility] HospitalNvaacxyvnb01-22-3798 15:50-5421UkN8% (BldA) [Mass fraction]98 %Anjel Ireland ENTREPRENEURIAL FINANCE PROFESSOR Work Phone: [facility] HospitalJnaelnhviu42-04-0408 15:50-0400Systolic blood mm[Hg]Anjel Ireland ENTREPRENEURIAL FINANCE PROFESSOR Work Phone: [facility] HospitalVnjhbfgoog74-34-1795 15:29-0400Body .4 cmAnjel Ireland ENTREPRENEURIAL FINANCE PROFESSOR Work Phone: noL[facility]eland [facility] HospitalFhojyvyvxe47-82-4488 15:29-0400Body mass index (BMI) [Ratio]49.87 kg/m6Gzhpczwj Ireland ENTREPRENEURIAL FINANCE PROFESSOR Work Phone: [facility] HospitalThxezvbmce52-40-7588 15:29-0400Body temperature 98.6 [degF]Anjel Ireland ENTREPRENEURIAL FINANCE PROFESSOR Work Phone: [address] [phone] 15:29-0400Body .46 kgBranum Ireland ENTREPRENEURIAL FINANCE PROFESSOR Work Phone: [address] [phone] 15:29-0400Diastolic blood qbppongs82 mm[Hg]Anjel Ireland ENTREPRENEURIAL FINANCE PROFESSOR Work Phone: [address] [phone] 15:29-0400Heart rate71 /min Anjel Ireland ENTREPRENEURIAL FINANCE PROFESSOR Work Phone: YQ HealthcareComment on above:98% F434-74-8111 15:29-0400Systolic blood ezwgguzc814 mm[Hg]Anjel Duvallpatrick ENTREPRENEURIAL FINANCE PROFESSOR Work Phone: noL[facility]eland [facility] HospitalTvelirhcmz21-11-1063 10:13-0400Blood Pressure LocationAlysha Galea [facility]08-08-2024 10:13-0400Diastolic blood seibzuwd57 mm[Hg]Diana Galea [facility]08-08-2024 10:13-0400Heart rate68 /minAlysha Galea [facility]08-08-2024 10:13-0400Systolic blood mm[Hg]Diana Galea [facility]02-29-2024 11:45-0500Diastolic blood esghulps49 mm[Hg]Shawn Timmis [facility]02-29-2024 11:45-0500Heart rate78 /minHilary Timmis [facility]02-29-2024 11:45-0500 Respiratory rate20 /minHilary Timmis [facility]02-29-2024 11:45-1778CoP8% (BldA) [Mass fraction]99 %Shawn Timmis [facility]02-29-2024 11:45-0500 Systolic blood vitolcgk408 mm[Hg]Shawn Timmis [facility]02-29-2024 10:58-0500Heart rate74 /minHilary Timmis [address] [place], [place] 287[address]02-29-2024 10:58-8661ApB6% (BldA) [Mass fraction]98 %Shawn Timmis [address] [place], [place] 2871302-29-2024 10:58-0500 Diastolic blood twuvltxl62 mm[Hg]Shawn Timmis [address] [place], [place] 287[address]02-29-2024 10:58-0500Mean blood kqfoolyg37 mm[Hg]Shawn Timmis [address] [place], [place] 287[address]02-29-2024 10:58-0500 Systolic blood pjxklfnu326 mm[Hg]Shawn Timmis [address] [place], [place] 287[address]02-29-2024 10:57-0500 Respiratory rate18 /minHilary Timmis [address] [place], [place] 287[address]02-29-2024 10:51-0500 Diastolic blood zsqbhhho60 mm[Hg]Shawn Timmis [address] [place], [place] [address]02-29-2024 10:51-0500Heart rate71 /minHilary Timmis [address] [place], [place] 287[address]02-29-2024 10:51-0500Mean blood wdytorlp27 mm[Hg]Shawn Timmis [address] [place], [place] 287[address]02-29-2024 10:51-0500 Respiratory rate11 /minHilary Timmis [address] [place], [place] 287[address]02-29-2024 10:51-1352OhW9% (BldA) [Mass fraction]96 %Shawn Timmis [address] [place], [place] 287[address]02-29-2024 10:51-0500 Systolic blood oftxoxjs687 mm[Hg]Shawn Timmis [address] [place], [place] 287[address]02-29-2024 10:40-0500Mean blood qocnxbue576 mm[Hg]Shawn Timmis [address] [place], [place] 287[address]02-29-2024 10:40-0500 Respiratory rate12 /minHilary Timmis [address] [place], [place] 287[address]02-29-2024 10:35-0500Mean blood asialknu624 mm[Hg]Shawn Timmis [address] [place], [place] 287[address]02-29-2024 10:35-0500 Respiratory rate16 /minHilary Timmis [address] [place], [place] 2871302-29-2024 10:30-4989ADW4 100 1Hilary Timmis [address] [place], [place] 2871302-29-2024 10:26-0500Body yzvgoetdiaz25.34 [degF]Shawn Timmis [address] [place], [place] 287[address]02-29-2024 10:25-7322AOD4 100 1Hilary Timmis [address] [place], [place] 2871302-29-2024 10:24-0500 Respiratory rate16 /minHilary Timmis [address] [place], [place] 2871302-29-2024 10:20-4285RHO8 100 1Hilary Timmis [address] [place], [place] 2871302-29-2024 07:22-0500Heart rate74 /minHilary Timmis [address] [place], [place] 287[address]02-29-2024 07:22-0500Mean blood bwmsvfuv28 mm[Hg]Shawn Timmis [address] [place], [place] 287[address]02-29-2024 07:19-0500Body pzqwhnwnoxd04.52 [degF]Shawn Timmis [address] [place], [place] 287[address]02-29-2024 07:19-0500Mean blood jidpxowy03 mm[Hg]Shawn Timmis [address] [place], [place] 2871302-13-2024 07:40-0500 Diastolic blood rqrmuaem94 mm[Hg]Shawn Timmis [address] [place], [place] 2871302-13-2024 07:40-0500Heart rate76 /minHilary Timmis [address] [place], [place] 2871302-13-2024 07:40-0500Mean blood jvtyfzlw422 mm[Hg]Shawn Timmis [address] [place], [place] 2871302-13-2024 07:40-0500 Systolic blood mfopkuhk594 mm[Hg]Shawn Timmis [address] [place], [place] 287[address]02-13-2024 07:40-0500Heart rate78 /minHilary Timmis [address] [place], [place] 2871302-13-2024 07:40-9684JqA7% (BldA) [Mass fraction]97 %Shawn Timmis [address] [place], [place] 2871302-13-2024 07:40-0500 Diastolic blood nwacmufy71 mm[Hg]Shawn Timmis [address] [place], [place] 2871302-13-2024 07:40-0500Mean blood ftqiabwn174 mm[Hg]Shawn Timmis [address] [place], [place] 2871302-13-2024 07:40-0500 Systolic blood hgcwcykn501 mm[Hg]Shawn Timmis [address] [place], [place] 2871302-07-2024 13:45-0500Body jjxszi944.42 Talib Bridges Other [employer] Other 02-07-2024 13:45-0500Body mass index (BMI) [Ratio] 58.94 kg/t1YafhspSylvia Bridges Other [employer] Other 02-07-2024 13:45-0500Body .8 [degF]Sylvia Bridges Other [employer] Other 02-07-2024 13:45-0500Body anuhzv738.67 kgSylvia Bridges Other [employer] Other 02-07-2024 13:45-0500Diastolic blood mm[Hg] Sylvia Bridges Other [employer] Other 02-07-2024 13:45-0500Respiratory rate18 /minSylvia Bridges Other [facility] Other 02-07-2024 13:45-6806GcV1% (BldA) [Mass fraction]99 % Sylvia Bridges [facility] Other 02-07-2024 13:45-0500Systolic blood wsrajsak214 mm[Hg] Sylvia Bridges Other [employer] Other 11-07-2023 09:25-0500Body owrhwi476.42 Stefano Reina Other [facility] Other 11-07-2023 09:25-0500Body mass index (BMI) [Ratio] 54.56 kg/x5StgdrSheeba Reina Other [employer] Other 11-07-2023 09:25-0500Body byclazhwwgx46.8 [degF]Sheeba Reina Other [employer] Other 11-07-2023 09:25-0500Body mkgkru883.61 kgSheeab Reina Other [employer] Other 11-07-2023 09:25-0500Diastolic blood wsginkub40 mm[Hg] Sheeba Reina Other [employer] Other 11-07-2023 09:25-0500Respiratory rate18 /minSheeba Reina Other [employer] Other 11-07-2023 09:25-5986RbN7% (BldA) [Mass fraction]97 % Sheeba Reina Other [employer] Other 11-07-2023 09:25-0500Systolic blood sbodyrnc759 mm[Hg] Sheeba Reina Other [employer] Other Encounters Encounter DateEncounter TypeCare ProviderFacilityStart: 06-09-2025 End: 18-67-0942Ddtkqamtr Result EncounterGeneric External Data ProviderNOMS External Department UnsolicitedStart: 06-09-2025 End: 07-11-1431Vupnwofji Result EncounterGeneric External Data ProviderNOOR External Department UnsolicitedStart: 04-05-2025 End: 08-76-8905wwmhxfqsilTSML DOMENICOot AvailableStart: 04-05-2025 End: 37-15-9037Ixkudy outpatient visit 25 minutesLisa Grossman ENTREPRENEURIAL FINANCE PROFESSOR Work Phone: noms [facility] FMComment on above:Primary hypertension (Primary Dx); NORBERTO (obstructive sleep apnea); Morbid obesity with BMI of 50.0-59.9, adult ([facility]-HCC); Wellness examinationStart: 04-05-2025 End: 12-51-6233Wodwskd encounter statusLisa Grossman ENTREPRENEURIAL FINANCE PROFESSOR Work Phone: noms HealthcareStart: 04-05-2025 End: 31-10-5431Gphiib flowsheetLisa Aichholz ENTREPRENEURIAL FINANCE PROFESSOR Work Phone: noms CWM FMStart: 04-05-2025 End: 40-94-5259Tdnvbv flowsheetLisa Aichholz ENTREPRENEURIAL FINANCE PROFESSOR Work Phone: noms CWM FMStart: 07-29-2024 End: 74-49-4153Tnxmci outpatient visit 10 minutesBrittany Ireland ENTREPRENEURIAL FINANCE PROFESSOR Work Phone: noms CWM FMComment on above:Morbid obesity with BMI of 50.0-59.9, adult ([facility])Start: 07-29-2024 End: 91-43-9548mfhphutyedQKKBOQXG FITZPATRICKNot AvailableStart: 07-29-2024 End: 87-92-3171Mlqlah flowsheetBrittany Ireland ENTREPRENEURIAL FINANCE PROFESSOR Work Phone: noms CWM FMStart: 07-29-2024 End: 75-01-9384Ibpcjj flowsheetBrittany Ireland ENTREPRENEURIAL FINANCE PROFESSOR Work Phone: noms CWM FMStart: 07-21-2024 End: 67-66-7169Rvehrtc encounter procedureShawn Conner MD Work Phone: noMS CI ENTComment on above:Nasal polyposis (Primary Dx)Start: 07-21-2024 End: 79-80-9356qvdhsfydzeLFLGTA H TIMMISNot AvailableStart: 07-21-2024 End: 24-57-9253Rovvmu flowsRogers Conner MD Work Phone: noMS CI ENTStart: 07-21-2024 End: 65-96-4185Dxktlf Ema Conner MD Work Phone: noMS CI ENTStart: 06-29-2024 End: 85-34-7942wgupbxmdoiBYFLHKFQ FITZPATRICKNot AvailableStart: 06-29-2024 End: 54-26-5853Marzwy outpatient visit 15 minutesBrittany Ireland ENTREPRENEURIAL FINANCE PROFESSOR Work Phone: noms CWM FMComment on above:Primary hypertension (CMS/HCC) (Primary Dx); Morbid obesity with BMI of 50.0-59.9, adult (CMS/HCC)Start: 06-29-2024 End: 72-51-9008Lpbjnt flowsheetBrittany Ireland ENTREPRENEURIAL FINANCE PROFESSOR Work Phone: NOMS CWM FMStart: 06-29-2024 End: 69-14-9118Vanwii flowsheetBrittany Ireland ENTREPRENEURIAL FINANCE PROFESSOR Work Phone: noms CWM FMStart: 06-19-2024 End: 58-56-4218hduntswlbvICRKWOKG FITZPATRICKFacility:ELIZABETH NorwalkStart: 06-19-2024 End: 90-55-1859Kyxvqin encounter procedureAurora X Penny [facility] Start: 05-27-2024 End: 62-81-8645Svhxqk outpatient visit 15 minutesBrittany Ireland ENTREPRENEURIAL FINANCE PROFESSOR Work Phone: noms CWM FMComment on above:NORBERTO (obstructive sleep apnea) (Primary Dx); Morbid obesity with BMI of 50.0-59.9, adult (CMS/HCC)Start: 05-27-2024 End: 45-84-9050qpggxsrovlURTJXMNZ FITZPATRICKNot AvailableStart: 05-27-2024 End: 04-89-7339Velwzo flowsheetBrittany Ireland ENTREPRENEURIAL FINANCE PROFESSOR Work Phone: NOME CWM FMStart: 05-27-2024 End: 27-23-4907Fhzpta flowsheetBrittany Ireland ENTREPRENEURIAL FINANCE PROFESSOR Work Phone: NOMS CWM FMStart: 04-16-2024 End: 81-72-7241gxzdnihtdlAzdjby J GaleaFacility:FTMCStart: 04-16-2024 End: 25-65-4157Myx Drop offDiana Pilo Wolf [facility] Start: 04-16-2024 End: 81-44-6538gxzrbrjlmsOqulqj J GaleaFacility:EU TammycarlaueStart: 04-16-2024 End: 50-91-4513Rhikwxi encounter procedureAlyslindy Wolf [facility] start: 04-09-2024 End: 84-91-4401ybbfextjooXUUZMU FAWWADNot AvailableStart: 03-28-2024 End: 08-59-8985Nvkcholyi department patient visitFacility:[facility] Hospitaltart: 86-20-1699irujdbmqwvFsrrlv GaleaFacility:EU AvilakStart: 01-09-2024 End: 51-47-4343Ufxhdxrkh Result EncounterSmaria antonia Ley MD Work Phone: noms External Department UnsolicitedStart: 01-09-2024 End: 35-52-5945Dpfjxjlua Result EncounterSmaria antonia Ley MD Work Phone: noms External Department UnsolicitedStart: 11-07-2023 End: 80-08-1331Xneoypmxj to same day surgery Joleen Conner [facility] Start: 11-07-2023 End: 29-40-8750eyopmkcteoCqbyin H TimmisFacility:FTMCStart: 10-29-2023 Preoperative Tracey Ireland NP Work Phone: noms HealthcareStart: 92-83-3487Avdjlamoc Result EncounterShawn Conner MD Work Phone: noms External Department UnsolicitedStart: 10-22-2023 Clinisync Result EncounterShawn Conner MD Work Phone: noOR External Department UnsolicitedStart: 10-22-2023 End: 58-07-2623xnnkqmvmaiSyjwex H TimmisFacility:FTMCStart: 10-22-2023 End: 37-72-3504Dlcszaz encounter procedureHilary H Livanmis [facility] Start: 10-16-2023 End: 51-27-7361hmftwrlnjjBlpfkd Dymond Other nort [employer] Other Start: 58-67-4849Wetdcc outpatient visit 15 minutes Sylvia BridgesFP Urgent Care ClydeStart: 45-58-7587Xlvelff encounter status Shawn Conner MD Work Phone: noms HealthcareStart: 09-14-2023 End: 25-82-2155Itximmsvq Result EncounterShawn Conner MD Work Phone: noms External Department UnsolicitedStart: 09-14-2023 End: 02-14-9349Ziiamotxz Result EncounterShawn Conner MD Work Phone: noms External Department UnsolicitedStart: 09-14-2023 End: 91-02-4078zjjqtgjubhJmuesp H TimmisFacility:FTMCStart: 09-14-2023 End: 95-37-1093Jnokqeh encounter procedureHilary H Dalila [facility] Start: 07-16-2023 End: 60-42-5651zjxwygkrioGnscd Keller Other [facility] [employer] Other Start: 10-47-2970Hkopax outpatient new 30 minutesSheeba Bliss [facility] ClydeStart: 05-18-2023 End: 61-41-6305Csrdyuite department patient visitNON STAFFFacility:[facility] Hospitaltart: 11-17-2022 End: 57-41-8682dddsikwvtiLHQSOJ Deepika FAWWADFacility:K7Damhx: 12-04-2021 End: 10-60-7848bihimpgjnvSVVMWD Deepika FAWADFacility:X9Nsmjp: 11-22-2021 End: 43-90-9554ngtshjjefkZUKDZS FAWWADFacility:H1 Procedures DateProcedureProcedure DetailPerforming ClinicianStart: 24-56-9872JTZ UA (CLEAN/CATCH) MICROSCOPIC IF INDICATEGeneric External Data ProviderStart: 78-67-1865YY CHEST 2Kenneth Ley MD Work Phone: Start: 50-78-7851Sugtdagzmj ethmoidectomy with turbinectomyHilary Timmiaugustina Start: 90-30-8099DMYH PT & PTTHiraghav Conner MD Work Phone: Start: 77-52-7005AJ MAXILLOFACIAL W/O CONTRASTShawn Conner MD Work Phone: Ethmoid sinusectomyHilary Timmiaugustina Lipoma (disorder)Shawn Timmiaugustina TonsillectomyHilary Timmiaugustina Plan of Treatment DateCare ActivityDetailAuthorStart: 05-12-2025 End: 42-82-9459Dueivgb encounter evzykdbwq95/03/2025 4:00 PM EDT Office Visit [facility] [address] [place] [id number] Linda Grossman NP [address] [place] [id number] [facility] FMStart: 32-24-6463Akmiwqdpe vaccinationInfluenza Vaccine (#1)[facility] HealthcareStart: 04-05-2025 End: 37-63-2891PCY W Auto Differential panel - BloodCBC and differential Lab Routine Wellness examination Expected: 04/05/2025 (Approximate), Expires: 0 04/05/2026[facility] HealthcareComment on above:Expected: 04/05/2025 (Approximate), Expires: 04/05/2026Start: 04-05-2025 End: 26-91-6841Azycuvbbjmprl metabolic 2000 panel - Serum or PlasmaComprehensive metabolic panel Lab Routine Wellness examination Expected: 04/05/2025 (Approximate), Expires: 04/05/2026[facility] HealthcareComment on above:Expected: 04/05/2025 (Approximate), Expires: 04/05/2026Start: 04-05-2025 End: 54-50-0857Abjjdutmav A1c/Hemoglobin.total in BloodHemoglobin A1c Lab Routine Morbid obesity with BMI of 50.0-59.9, [place] [place] Expected: 04/05/2025 (Approximate), Expires: 04/05/2026[facility] Work Phone: Comment on above:Expected: 04/05/2025 (Approximate), Expires: 04/05/2026Start: 04-05-2025 End: 64-64-8821Adldddz, randomInsulin, random Lab Routine Morbid obesity with BMI of 50.0-59.9, [place] [place] Expected: 04/05/2025 (Approximate), Expires: 04/05/2026[facility] HealthcareComment on above:Expected: 04/05/2025 (Approximate), Expires: 04/05/2026Start: 04-05-2025 End: 60-12-8890Slnft 1996 panel - Serum or PlasmaLipid panel Lab Routine Wellness examination Expected: 04/05/2025 (Approximate), Expires: 04/05/2026[facility] HealthcareComment on above:Expected: 04/05/2025 (Approximate), Expires: 04/05/2026Start: 04-05-2025 End: 75-00-8663Mqgtieigiuo [Units/volume] in Serum or PlasmaTSH Lab Routine Wellness examination Expected: 04/05/2025 (Approximate), Expires: 04/05/2026[facility] HealthcareComment on above:Expected: 04/05/2025 (Approximate), Expires: 04/05/2026Start: 04-05-2025 End: 32-35-8252Cdicyrrxu (T4) free [Mass/volume] in Serum or PlasmaT4, free Lab Routine Wellness examination Expected: 04/05/2025 (Approximate), Expires: 04/05/2026[facility] HealthcareComment on above:Expected: 04/05/2025 (Approximate), Expires: 04/05/2026Start: 04-05-2025 End: 59-08-9333Njztxfuadz complete panel - UrineUrinalysis with reflex microscopic (clean catch) Lab Routine Wellness examination Expected: 04/05/2025 (Approximate), Expires: 04/05/2026[facility] HealthcareComment on above:Expected: 04/05/2025 (Approximate), Expires: 04/05/2026Start: 37-80-3049Sljvhuqin vaccinationInfluenza Vaccine (#1)[facility] HealthcareComment on above:Postponed from 05/10/2024 (Other Patient Reasons)Start: 01-20-2025 End: 95-64-6184Exjpxii encounter teofeevpp93/14/2025 3:20 PM EDT Office Visit [facility] [address] [facility] [address] [place] [address] Shawn Conner MD [address] [facility] [address] [place], [place] [id number] [facility] CI ENTStart: 09-24-2024 End: 16-96-3645Kkicldg encounter xgpkmweys65/16/2025 3:30 PM EST Office Visit [facility] [address] [place] [address] Anjel Ireland NP [address] [place] [address] [facility] FMStart: 07-29-2024 End: 59-30-4248Tvarvqp encounter procedureNOMS CWM FMComment on above:Arrived Start: 07-21-2024 End: 81-34-9637Wlazwpq encounter qztexitia29/12/2024 3:30 PM EST Office Visit [facility] [address] [place] [address] [place] [address] Shawn Conner MD [address] [place] [address] [place] [address] [facility] CI ENTStart: 06-25-2024 End: 81-76-9497Zratlet encounter /17/2024 3:30 PM EDT Office Visit [facility] [address] [place] [address] Anjel Ireland, ENTREPRENEURIAL FINANCE PROFESSOR [address] [place] [address] [facility] FMStart: 06-23-2024 End: 49-67-1849Ifqqfon encounter oddqtmgcz99/15/2024 8:00 AM EDT Office Visit [facility] [address] [place] [address] [place] [address] Shawn Conner MD [address] [place] [address] [place] [address] [facility] CI ENTStart: 05-27-2024 End: 16-27-2780Jtgnzfr encounter nlhsqrkas37/18/2024 3:30 PM EDT Office Visit [facility] [address] [place] [address] Anjel Ireland, ENTREPRENEURIAL FINANCE PROFESSOR [address] [place] [address] ArrivedNOMS CWM FMComment on above:ArrivedStart: 05-10-2024 Influenza vaccinationInfluenza Vaccine (#1)[facility] HealthcareStart: 03-08-2024 Influenza vaccinationInfluenza Vaccine (#1)[facility] HealthcareComment on above: Postponed from 05/10/2023 (Patient Refused)Start: 11-15-2023 End: 71-87-7700Crhdsos encounter rwzskxawy34/08/2024 8:30 AM EST Office Visit [facility] AVILAISRRAELK [address] [place] [address] [place] [address] Shawn Conner MD [address] [facility] [address] [place] [address] [facility] CASIMIROtart: 11-07-2023 End: 29-50-0911Svvttjp encounter aorpxrgwf22/29/2024 9:00 AM EST Procedure Visit [facility] DEP Shawn Conner MD [address] [facility] [address] [place] [address] [facility] EXT DEPStart: 10-29-2023 End: 85-94-8056Ydmprsf encounter kdbiywopn26/20/2024 9:00 AM EST Office Visit [facility] [address] [place] [address] Shaikh Ley MD [address] [place] [address] [facility] Immunizations Immunization DateImmunizationNotesCare QevaehgdNwgkpmjp07-53-9318bffdoaj toxoid, reduced diphtheria toxoid, and acellular pertussis vaccine, adsorbedBrittany Ireland ENTREPRENEURIAL FINANCE PROFESSOR Work Phone: [facility] Rssxcfqvjn49-36-4284afobtmv toxoid, reduced diphtheria toxoid, and acellular pertussis vaccine, adsorbedBrittany Ireland ENTREPRENEURIAL FINANCE PROFESSOR Work Phone: [facility] Payers DatePayer CategoryPayerPolicy [id number] Health InsuranceHEALTHSCOPE [id number] [employer]ALTH[employer] BENEFITS [id number] 2022- [phone] [address] [address] [place] [id number] [id number] 2.0.1.354517.3.57[id number] 2.0.1.107405.3.57[id number] 2.0.1.302382.3.57[id number] 2.0.1.340533.3.57[id number] 2.0.1.943148.3.57[id number] 2.160.1.719912.3.57[id number] 2.160.1.752508.3.57[id number] 2.840.1.418107.3.57[id number] 2.16.840.1.821712.3.57[id number] 2.16.840.1.771126.3.57[id number] 2.16.840.1.498390.3.57[id number] 2.16.840.1.329517.3.57[id number] 2.16.840.1.747494.3.57[id number] 2.16.840.1.972997.3.57[id number]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 were not included. Subjective Patient ID: Neal Seymour is a 38 y.o. male who presents for Follow-up (Adipex refill needed). HPI Started on Phentermine in February Has lost a total of 48 pounds Has changed diet and lifestyle Denies any adverse effects; Diet: mostly home cooked meals; high protein; low carb; 6515-4672 calories per day Exercise: Daily. Lifting. Water: 1 gallon per day NORBERTO: Was previously diagnosed with NORBERTO but has not been wearing CPAP due to high pressures; Would like to start wearing again. Review of Systems Constitutional: Positive for fatigue. Negative for activity change, appetite change, chills, diaphoresis, fever and unexpected weight change. HENT: Negative for congestion, ear pain, rhinorrhea, sinus pressure, sinus pain, sneezing, sore throat, trouble swallowing and voice change. Eyes: Negative for visual disturbance. Respiratory: Negative for cough, chest tightness, shortness of breath and wheezing. Cardiovascular: Negative for chest pain, palpitations and leg swelling. Gastrointestinal: Negative for abdominal distention, abdominal pain, blood in stool, constipation, diarrhea and vomiting. Genitourinary: Negative for decreased urine volume, dysuria, flank pain, frequency, hematuria and urgency. Musculoskeletal: Negative for arthralgias, gait problem, joint swelling and myalgias. Skin: Negative for rash. Neurological: Negative for dizziness, tremors, syncope, weakness, light- headedness and headaches. Psychiatric/Behavioral: Negative for decreased concentration and suicidal ideas. The patient is notnervous/anxious. Hematological: Does not bruise/bleed easily. Endocrine: Negative for cold intolerance, heat intolerance, polydipsia, polyphagia and polyuria. Objective Physical Exam Vitals reviewed. Constitutional: Appearance: Normal appearance. HENT: Head: Normocephalic and atraumatic. Right Ear: Tympanic membrane normal. Left Ear: Tympanic membrane normal. Nose: Nose normal. Mouth/Throat: Mouth: Mucous membranes are moist. Pharynx: Oropharynx is clear. Eyes: Pupils: Pupils are equal, round, and reactive to light. Cardiovascular: Rate and Rhythm: Normal rate and regular rhythm. Pulses: Normal pulses. Heart sounds: Normal heart sounds. Pulmonary: Effort: Pulmonary effort is normal. Breath sounds: Normal breath sounds. Abdominal: General: Abdomen is flat. Bowel sounds are normal. Palpations: Abdomen is soft. Musculoskeletal: General: Normal range of motion. Cervical back: Normal range of motion. Skin: General: Skin is warm and dry. Capillary Refill: Capillary refill takes less than 2 seconds. Neurological: General: No focal deficit present. Mental Status: He is alert and oriented to person, place, and time. Psychiatric: Mood and Affect: Mood normal. Behavior: Behavior normal. Assessment/Plan Problem List Items Addressed This Visit NORBERTO (obstructive sleep apnea) - Primary Was previously diagnosed with NORBERTO but has not been wearing CPAP due to high pressures; Would like to start wearing again. Order sent for re titration study. Morbid obesity with BMI of 50.0-59.9, adult ([facility]) Started on Phentermine in February Has lost [...] to 1600 calories daily if no contraindications Relevant Medications phentermine (Adipex-P) 37.5 MG tablet documented in this encounterTwo Rivers Psychiatric [id number] Instructions* Patient Instructions* Anjel Ireland NP - 05/27/2024 3:30 PM EDT Keep up the good work!!! Call if you need anything!! F/U in 4 weeks to document weight loss. Increase physical activity as tolerated, and lower caloric intake to 1600 calories daily if no contraindications documented in this encounterTwo Rivers Psychiatric [id number] Evaluation + Plan note Diagnostic Tests Pending * Urine Culture 04/16/24 [facility] 08-08-2024 Hospital Discharge instructions Patient Education 04/16/2024 11:04:30 Erectile Dysfunction Erectile Dysfunction Erectile dysfunction (ED) is the inability to get or keep an erection in order to have sexual intercourse. ED is considered a symptom of an underlying disorder and is not considered a disease. ED mayinclude: Inability to get an erection. Lack of enough hardness of the erection to allow penetration. Loss of erection before sex is finished. What are the causes? This condition may be caused by: Physical causes, such as: ?Artery problems. This may include heart disease, high blood pressure, atherosclerosis, and diabetes. ?Hormonal problems, such as low testosterone. ?Obesity. ?Nerve problems. This may include back or pelvic injuries, multiple sclerosis, Parkinson's disease,spinal cord injury, and stroke. Certain medicines, such as: ?Pain relievers. ?Antidepressants. ?Blood pressure medicines and water pills (diuretics). ?Cancer medicines. ?Antihistamines. ?Muscle relaxants. Lifestyle factors, such as: ?Use of drugs such as marijuana, cocaine, or opioids. ?Excessive use of alcohol. ?Smoking. ?Lack of physical activity or exercise. Psychological causes, such as: ?Anxiety or stress. ?Sadness or depression. ?Exhaustion. ?Fear about sexual performance. ?Guilt. What are the signs or symptoms? Symptoms of this condition include: Inability to get an erection. Lack of enough hardness of the erection to allow penetration. Loss of the erection before sex is finished. Sometimes having normal erections, but with frequent unsatisfactory episodes. Low sexual satisfaction in either partner due to erection problems. A curved penis occurring with erection. The curve may cause pain, or the penis may be too curved toallow for intercourse. Never having nighttime or morning erections. How is this diagnosed? This condition is often diagnosed by: Performing a physical exam to find other diseases or specific problems with the penis. Asking you detailed questions about the problem. Doing tests, such as: ?Blood tests to check for diabetes mellitus or high cholesterol, or to measure hormone levels. ?Other tests to check for underlying health conditions. ?An ultrasound exam to check for scarring. ?A test to check blood flow to the penis. Doing a sleep study at home to measure nighttime erections. How is this treated? This condition may be treated by: Medicines, such as: ?Medicine taken by mouth to help you achieve an erection (oral medicine). ?Hormone replacement therapy to replace low testosterone levels. ?Medicine that is injected into the penis. Your health care provider may instruct you how to give yourself these injections at home. ?Medicine that is delivered with a short applicator tube. The tube is inserted into the opening at the tip of the penis, which is the opening of the urethra. A tiny pellet of medicine is put in the urethra. The pellet dissolves and enhances erectile function. This is also called MUSE (medicated urethral system for erections) therapy. Vacuum pump. This is a pump with a ring on it. The pump and ring are placed on the penis and used to create pressure that helps the penis become erect. Penile implant surgery. In this procedure, you may receive: ?An inflatable implant. This consists of cylinders, a pump, and a reservoir. The cylinders can be inflated with a fluid that helps to create an erection, and they can be deflated after intercourse. ?A semi-rigid implant. This consists of two silicone rubber rods. The rods provide some rigidity. They are also flexible, so the penis can both curve downward in its normal position and become straight for sexual intercourse. Blood vessel surgery to improve blood flow to the penis. During this procedure, a blood vessel froma different part of the body is placed into the penis to allow blood to flow around (bypass) damaged or blocked blood vessels. Lifestyle changes, such as exercising more, losing weight, and quitting smoking. Follow these instructions at home: Medicines Take vzlv-ssk-[id number] and prescription medicines only as told by your health care provider. Do not increase the dosage without first discussing it with your health care provider. If you are using self-injections, do injections as directed by your health care provider. Make sureyou avoid any veins that are on the surface of the penis. After giving an injection, apply pressureto the injection site for 5 minutes. Talk to your health care provider about how to prevent headaches while taking ED medicines. These medicines may cause a sudden headache due to the increase in blood flow in your body. General instructions Exercise regularly, as directed by your health care provider. Work with your health care provider to lose weight, if needed. Do not use any products that contain nicotine or tobacco. These products include cigarettes, chewing tobacco, and vaping devices, such as e-cigarettes. If you need help quitting, ask your health careprovider. Before using a vacuum pump, read the instructions that come with the pump and discuss any questionswith your health care provider. Keep all follow-up visits. This is important. Contact a health care provider if: You feel nauseous. You are vomiting. You get sudden headaches while taking ED medicines. You have any concerns about your sexual health. Get help right away if: You are taking oral or injectable medicines and you have an erection that lasts longer than 4 hours. If your health care provider is unavailable, go to the nearest emergency room for evaluation. An erection that lasts much longer than 4 hours can result in permanent damage to your penis. You have severe pain in your groin or abdomen. You develop redness or severe swelling of your penis. You have redness spreading at your groin or lower abdomen. You are unable to urinate. You experience chest pain or a rapid heartbeat (palpitations) after taking oral medicines. These symptoms may represent a serious problem that is an emergency. Do not wait to see if the symptoms will go away. Get medical help right away. Call your local emergency services (911 in the [place] Do not drive yourself to the hospital. Summary Erectile dysfunction (ED) is the inability to get or keep an erection during sexual intercourse. This condition is diagnosed based on a physical exam, your symptoms, and tests to determine the cause. Treatment varies depending on the cause and may include medicines, hormone therapy, surgery, or a vacuum pump. You may need follow-up visits to make sure that you are using your medicines or devices correctly. Get help right away if you are taking or injecting medicines and you have an erection that lasts longer than 4 hours. This information is not intended to replace advice given to you by your health care provider. Make sure you discuss any questions you have with your health care provider. Document Revised: 11/22/2021 Document Reviewed: 11/22/2021 [employer] Patient Education 2022 [employer]. Follow Up Care 03/27/2024 14:36:25 With:Luciano WHITLOCK, Diana Daigle, URL Address: When:1 year Comments:pending results of cx/micro [facility] 08-08-2024 NoteUrology Office/Clinic Note Chief Complaint referrall [facility] Staff New pt referred by Dr. Delta Mack for nocturia. Never seen in our office before (verified on [employer]). CT AP w con done 11/17/22 [facility]. PSA 03/26/24 - 1.07 Negative ucx 03/26/24. No other relevant labs/imaging on [facility] or [facility]. pt states since his referral his urinary issues are gone, he is still having back pain and some abdominal pain Dysuria: no Incomplete bladder emptying: no Hematuria: trace-intact Frequency: no Urgency: no Nocturia: pt states he did have issues at night, now he is doing better, he changed his diet and stopped drinking pop. does not get up at night now Stream: normal Leaking: no Post void dripping: no Wearing pads/ Depends: no Urge incontinence: no Stress incontinence: no Incontinence without Sensory Awareness: no Abdominal pain: yes Flank pain: yes Sexual complaints: no History of Present Illness Staff HPI reviewed and agree. Review of Systems PHQ Score Initial Depression Screen Score: 0 SCORE no fever, chills, malaise, myalgia. no rash/lesions. no chest pain, palpitations, or SOB. no abdominal pain, nausea, vomiting. no unilateral calf swelling, redness, pain Physical Exam Vitals & Measurements HR: 68(Peripheral) BP: 128/74 HT: 71 in HT: 181 cm WT: 176 kg WT: 387.2 lb BMI: 53.72 General: nontoxic, well-nourished, appears stated age Mouth: moist mucosa Lungs: normal respiratory effort Cardio: regular rate, good distal perfusion Abdomen: nondistended, no suprapubic distention or tenderness, no CVA tenderness Neurologic: Grossly normal Skin: No rashes or suspicious lesions Assessment/Plan [employer] referred by Dr. Mack for nocturia. 1. Nocturia (R35.1: Nocturia) UA today trace-intact blood only IPSS 2 Pt here today for referral for nocturia. Pt reports a couple weeks ago he developed a sharp back pain that radiated to his left scrotum and left shoulder. Pt reports that he has been exercising and walking up to 25,000 steps per day. Pt reports that when he overdoes it he will develop low back pain with nerve pain to his scrotum and shoulder. Pt reports that leaning over a table or sitting downcompletely resolves his pain. Advised pt that this sounds more like musculoskeletal pain and advised him to talk with his PCP regarding this. Advised pt to rest, take Tylenol/Motrin for pain and use ice/heat. Pt verbalized understanding. Pt also reports that for about the last year he has had nocturia but patient reports since he has been dieting/exercising for the last month, this has completely gone away. Pt reports he stopped drinking caffeine and has increased his fluid intake. Advised pt this is great and to continue this. Pt reports no difficulties with urination at this time. Denies frequency, urgency, incomplete emptying,weak stream or straining. I did speak with patient regarding NORBERTO, he has a CPAP but does not wear it. Advised pt this could contribute to nocturia. Pt is also on HCTZ which patient is aware is a diuretic and can contribute to frequency. -Increase fluids, avoid bladder irritants -Timed voids -CPAP compliance -Call if pt develops bothersome urinary symptoms -Discuss bothersome back pain with PCP Ordered: E&M of New Patient Moderate 45-59 Min 66979 2. Asymptomatic microscopic hematuria (R31.21: Asymptomatic microscopic hematuria) 11/16/22 CT abd/pelvis w/ con - urinary bladder is unremarkable, no hydronephrosis, no obstructing urologic calcifications are present UA today trace-intact blood only Today's in-office UA shows trace-intact hgb. We will send for microscopic eval and culture. If shows significant microhematuria and completely negative cx, then we will need to proceed with hematuriaeval. hematuria eval components were not discussed in depth during today's visit. if + will need phone call or o.v. to discuss at length. if micro negative then no additional action needed at this time. Pt denies ever seeing gross blood. -Send urine cx & micro -If negative, F/U 1 year Ordered: E&M of New Patient Moderate 45-59 Min [id number] 3. ED (erectile dysfunction) (N52.9: Male erectile dysfunction, unspecified) RAINA 21 Pt reports that for the last year he has had trouble with firmness of his erections. Pt is able to achieve and maintain an erection, but reports it is not as firm as he would like it to be. Advised pt he could use a penile ring or pump, pt verbalized understanding. Advised pt BP medications and theAdipex that he is taking can contribute to erectile dysfunction along with NORBERTO. -Use penile ring/pump -Compliance with CPAP -Continue lifestyle modifications, weight loss Ordered: E&M of New Patient Moderate 45-59 Min [id number] Follow-up With When Contact Information Diana Reyes, URL Within 1 year Additional Instructions: pending results of cx/micro Patient Education Erectile Dysfunction Problem List/Past Medical History Ongoing Acute c (more content not included)...[facility] HospitalComment on above:Result Comment: Electronically Signed By: Diana Reyes\.br\Date and Time Signed: 04/16/24 11:05 [id number] NotePatient Education Urology Erectile Dysfunction Erectile dysfunction (ED) is the inability to get or keep an erection in order to have sexual intercourse. ED is considered a symptom of an underlying disorder and is not considered a disease. ED mayinclude: ? Inability to get an erection. ? Lack of enough hardness of the erection to allow penetration. ? Loss of erection before sex is finished. What are the causes? This condition may be caused by: ? Physical causes, such as: ? Artery problems. This may include heart disease, high blood pressure, atherosclerosis, and diabetes. ? Hormonal problems, such as low testosterone. ? Obesity. ? Nerve problems. This may include back or pelvic injuries, multiple sclerosis, Parkinson's disease, spinal cord injury, and stroke. ? Certain medicines, such as: ? Pain relievers. ? Antidepressants. ? Blood pressure medicines and water pills (diuretics). ? Cancer medicines. ? Antihistamines. ? Muscle relaxants. ? Lifestyle factors, such as: ? Use of drugs such as marijuana, cocaine, or opioids. ? Excessive use of alcohol. ? Smoking. ? Lack of physical activity or exercise. ? Psychological causes, such as: ? Anxiety or stress. ? Sadness or depression. ? Exhaustion. ? Fear about sexual performance. ? Guilt. What are the signs or symptoms? Symptoms of this condition include: ? Inability to get an erection. ? Lack of enough hardness of the erection to allow penetration. ? Loss of the erection before sex is finished. ? Sometimes having normal erections, but with frequent unsatisfactory episodes. ? Low sexual satisfaction in either partner due to erection problems. ? A curved penis occurring with erection. The curve may cause pain, or the penis may be too curved to allow for intercourse. ? Never having nighttime or morning erections. How is this diagnosed? This condition is often diagnosed by: ? Performing a physical exam to find other diseases or specific problems with the penis. ? Asking you detailed questions about the problem. ? Doing tests, such as: ? Blood tests to check for diabetes mellitus or high cholesterol, or to measure hormone levels. ? Other tests to check for underlying health conditions. ? An ultrasound exam to check for scarring. ? A test to check blood flow to the penis. ? Doing a sleep study at home to measure nighttime erections. How is this treated? This condition may be treated by: ? Medicines, such as: ? Medicine taken by mouth to help you achieve an erection (oral medicine). ? Hormone replacement therapy to replace low testosterone levels. ? Medicine that is injected into the penis. Your health care provider may instruct you how to give yourself these injections at home. ? Medicine that is delivered with a short applicator tube. The tube is inserted into the opening atthe tip of the penis, which is the opening of the urethra. A tiny pellet of medicine is put in the urethra. The pellet dissolves and enhances erectile function. This is also called MUSE (medicated urethral system for erections) therapy. ? Vacuum pump. This is a pump with a ring on it. The pump and ring are placed on the penis and usedto create pressure that helps the penis become erect. ? Penile implant surgery. In this procedure, you may receive: ? An inflatable implant. This consists of cylinders, a pump, and a reservoir. The cylinders can be inflated with a fluid that helps to create an erection, and they can be deflated after intercourse. ? A semi-rigid implant. This consists of two silicone rubber rods. The rods provide some rigidity. They are also flexible, so the penis can both curve downward in its normal position and become straight for sexual intercourse. ? Blood vessel surgery to improve blood flow to the penis. During this procedure, a blood vessel from a different part of the body is placed into the penis to allow blood to flow around (bypass) damaged or blocked blood vessels. ? Lifestyle changes, such as exercising more, losing weight, and quitting smoking. Follow these instructions at home: Medicines ? Take ksss-lij-jhmqkwg and prescription medicines only as told by your health care provider. Do not increase the dosage without first discussing it with your health care provider. ? If you are using self-injections, do injections as directed by your health care provider. Make sure you avoid any veins that are on the surface of the penis. After giving an injection, apply pressure to the injection site for 5 minutes. ? Talk to your health care provider about how to prevent headaches while taking ED medicines. Thesemedicines may cause a sudden headache due to the increase in blood flow in your body. General instructions ? Exercise regularly, as directed by your health care provider. Work with your health care providerto lose weight, if needed. ? Do not use any products that contain nicotine or tobacco. These (more content not included)...[facility]02-29-2024 Hospital Discharge instructions Patient Education 11/07/2023 11:23:51 Post Op [...] instructions. If you have problems, contact your healthcare provider. Medicines Take or use sgcy-mso-nkrthxk and prescription medicines only as told by [...] discomfort that does not get better with ihnr-nxt-bixgmmq medicine. You have a fever. You have [...] provider. Document Revised: 08/15/2022 Document Reviewed: 08/15/2022 [employer] Patient Education 2022 [employer]. Follow Up Care 09/18/2023 09:39:14 With:Shawn Conner Address: [address] [place] [address], [address] [place] [phone] Business (1) When:11/15/2023 [facility]02-12-2024 Note [id number] Evaluation note* Encounter Date Diagnosis Assessment Notes Treatment Notes Treatment Clinical Notes Oct, Acute folliculitis (ICD-10 - L73 .9) Take the cephalexin as prescribed until gone. Apply warm compresses to the area 2-3 times a day. Take Tylenol or Motrin as needed for aches pains or fevers. Follow-up with your family physician if noimprovement in 2 to 3 days. Go to the ER for worsening symptoms or concerns. [facility] Other 11-07-2023 Evaluation note* Encounter Date Diagnosis Assessment Notes Treatment Notes Treatment Clinical Notes Jul, Contact with and (young spected) exposure to covid-19 (ICD-10 - Z20.822) Jul,Viral URI with cough (ICD-10 - J06.9) Advised [...] treatment plan. Patient left in stable condition [facility] Other 02-03-2016 History general Narrative - Reported* Type Description Date Medical History EGD 10/12/2015- mild esophagus Surgical HistoryTonsilectomySurgical Historydeviated septum repairSurgical Historysinus surgeryHospitalization Historysee above [facility] Other 02-03-2016 History general Narrative - Reported* Type Description Date Medical History EGD 10/12/2015- mild esophagus Surgical HistoryTonsilectomySurgical Historydeviated septum repairSurgical Historysinus surgerySurgical Historysinus surgeryHospitalization Historysee above [facility] Other Evaluation + Plan note No data available for this section [facility] Future Appointments Appointment Date:11/07/2023 08:00:00 AM Scheduled Provider: Location:[facility] Diagnosis Primary hypertension (CMS/HCC)- Primary Unspecified essential hypertension Resistant hypertension (CMS/HCC) Morbid obesity with BMI of 50.0-59.9, adult (CMS/HCC) Leukocytosis, unspecified type Wellness examination Nasal polyposis Unspecified nasal polyp NORBERTO (obstructive sleep apnea)- Primary Obstructive sleep apnea (adult) (pediatric) Pre-operative clearance Unspecified pre-operative examination Morbid (severe) obesity due to excess calories (E66.01) Morbid obesity with BMI of 50.0-59.9, adult ([facility]/HCC) Respiratory illness- Primary Primary hypertension (CMS/HCC) Unspecified essential hypertension Morbid obesity with BMI of 50.0-59.9, adult ([facility]/HCC)- Primary Primary hypertension (CMS/HCC) Unspecified essential hypertension Neck stiffness Torticollis, unspecified Leukocytosis, unspecified type Morbid obesity with BMI of 50.0-59.9, adult ([facility]/HCC) Primary hypertension (CMS/HCC) Unspecified essential hypertension NORBERTO (obstructive sleep apnea)- Primary Obstructive sleep apnea (adult) (pediatric) Morbid obesity with BMI of 50.0-59.9, adult ([facility]/HCC) Primary hypertension (CMS/HCC)- Primary Unspecified essential hypertension Morbid obesity with BMI of 50.0-59.9, adult ([facility]/HCC) documented in this encounter [facility]* Diagnosis Primary hypertension (CMS/HCC)- Primary Unspecified essential hypertension Resistant hypertension (CMS/HCC) Morbid obesity with BMI of 50.0-59.9, adult ([facility]/HCC) Leukocytosis, unspecified type Wellness examination Nasal polyposis Unspecified nasal polyp NORBERTO (obstructive sleep apnea)- Primary Obstructive sleep apnea (adult) (pediatric) Pre-operative clearance Unspecified pre-operative examination Morbid (severe) obesity due to excess calories (E66.01) Morbid obesity with BMI of 50.0-59.9, adult ([facility]/HCC) Respiratory illness- Primary Primary hypertension (CMS/HCC) Unspecified essential hypertension Morbid obesity with BMI of 50.0-59.9, adult ([facility]/HCC)- Primary Primary hypertension (CMS/HCC) Unspecified essential hypertension Neck stiffness Torticollis, unspecified Leukocytosis, unspecified type Morbid obesity with BMI of 50.0-59.9, adult ([facility]/HCC) Primary hypertension (CMS/HCC) Unspecified essential hypertension NORBERTO (obstructive sleep apnea)- Primary Obstructive sleep apnea (adult) (pediatric) Morbid obesity with BMI of 50.0-59.9, adult ([facility]/HCC) Primary hypertension (CMS/HCC)- Primary Unspecified essential hypertension Morbid obesity with BMI of 50.0-59.9, adult ([facility] Athlete's foot on left Nasal polyposis- Primary Unspecified nasal polyp documented in this encounter [facility]* Diagnosis Primary hypertension ([facility]/HCC)- Primary Unspecified essential hypertension Resistant hypertension (CMS/HCC) Morbid obesity with BMI of 50.0-59.9, adult ([facility]) Leukocytosis, unspecified type Wellness examination Nasal polyposis Unspecified nasal polyp NORBERTO (obstructive sleep apnea)- Primary Obstructive sleep apnea (adult) (pediatric) Pre-operative clearance Unspecified pre-operative examination Morbid (severe) obesity due to excess calories (E66.01) Morbid obesity with BMI of 50.0-59.9, adult ([facility]) Respiratory illness- Primary Primary hypertension ([facility]) Unspecified essential hypertension Morbid obesity with BMI of 50.0-59.9, adult ([facility])- Primary Primary hypertension ([facility]) Unspecified essential hypertension Neck stiffness Torticollis, unspecified Leukocytosis, unspecified type Morbid obesity with BMI of 50.0-59.9, adult ([facility]) Primary hypertension ([facility]) Unspecified essential hypertension NORBERTO (obstructive sleep apnea)- Primary Obstructive sleep apnea (adult) (pediatric) Morbid obesity with BMI of 50.0-59.9, adult ([facility]) Primary hypertension ([facility]/HCC)- Primary Unspecified essential hypertension Morbid obesity with BMI of 50.0-59.9, adult ([facility]) Athlete's foot on left Morbid obesity with BMI of 50.0-59.9, adult ([facility]) documented in this encounter [facility]* Diagnosis NORBERTO (obstructive sleep apnea)- Primary Obstructive sleep apnea (adult) (pediatric) Morbid obesity with BMI of 50.0-59.9, adult ([facility]) documented in this encounter [facility]* Diagnosis Primary hypertension- Primary Unspecified essential hypertension Resistant hypertension Morbid obesity with BMI of 50.0-59.9, adult ([facility]) Leukocytosis, unspecified type Wellness examination Nasal polyposis Unspecified nasal polyp NORBERTO (obstructive sleep apnea)- Primary Obstructive sleep apnea (adult) (pediatric) Pre-operative clearance Unspecified pre-operative examination Morbid (severe) obesity due to excess calories (E66.01) Morbid obesity with BMI of 50.0-59.9, [place] Respiratory illness- Primary Primary hypertension Unspecified essential hypertension Morbid obesity with BMI of 50.0-59.9, adult [place] [place] Primary Primary hypertension Unspecified essential hypertension Neck stiffness Torticollis, unspecified Leukocytosis, unspecified type Morbid obesity with BMI of 50.0-59.9, adult [place] [place] Primary hypertension Unspecified essential hypertension NORBERTO (obstructive sleep apnea)- Primary Obstructive sleep apnea (adult) (pediatric) Morbid obesity with BMI of 50.0-59.9, adult [place] [place] Primary hypertension- Primary Unspecified essential hypertension Morbid obesity with BMI of 50.0-59.9, adult [place] [place] Athlete's foot on left Morbid obesity with BMI of 50.0-59.9, adult [place] [place] Primary hypertension- Primary Unspecified essential hypertension NORBERTO (obstructive sleep apnea) Obstructive sleep apnea (adult) (pediatric) Morbid obesity with BMI of 50.0-59.9, adult [place] [place] Wellness examination [facility] No data available for this section [facility] No data available for this section [facility] Summary Purpose Family History No Family History Records FoundNo Family History Records Found No data available for this section No data available for this section No data available for this section No Family History Records Found No data available for this section No data available for this section No Family History Records FoundNo Family History Records FoundNo Family History Records FoundNo Family History Records [...] section and content) DATE CREATED AUTHOR 11/21/2022 [facility] DATE CREATED AUTHOR AUTHOR'S ORGANIZ ATION 06/13/2023 [facility] DATE CREATED AUTHOR AUTHOR'S ORGANIZ ATION 03/31/2024 [facility] DATE CREATED AUTHOR AUTHOR'S ORGANIZ ATION 04/18/2024 [facility] DATE CREATED AUTHOR AUTHOR'S ORGANIZ ATION 04/19/2024 [facility] DATE CREATED AUTHOR AUTHOR'S ORGANIZ ATION 04/20/2024 [facility] DATE CREATED AUTHOR AUTHOR'S ORGANIZ ATION 06/21/2024 [facility] DATE CREATED AUTHOR AUTHOR'S ORGANIZ ATION 04/06/2025 [facility] EPIC REASON FOR VISIT (unrecogniz ed section and content) ReasonCommentsFollow-upRefill prescriptionsReasonCommentsNasal Polyps3 month checkReasonCommentsWeight CheckReasonCommentsFollow-upAdipex refill neededReason CommentsHypertension Care Teams (unrecognized sec tion and content) Team MemberRelationshipSpecialtyStart DateEnd Date Shaikh Ley MD PCP - GeneralInternal Jrlchrgw47/23/232 Shaikh Ley MD PCP - GeneralInternal Medicine Manish Reed MD PCP - GeneralFamily Medicine06/01/2410 UnallocatGabriella langford MD [address] [place] [address] PCP - GeneralFamily Foamwuom49/22/ Manish Reed MD PCP - GeneralFamily Ggcoakuf56/31/24 Anjel Ireland NP Nurse PractitionerFamily Medicine06/01/24Team MemberRelationshipSpecialtyStart DateEnd Date Manish Reed MD [facility] - [facility]24 Anjel Ireland NP [facility] Pract[facility]er[facility]06/01/24Team MemberRelationshipSpecialtyStart DateEnd Date Shaikh Ley MD [address] [place] [id number] PCP - [facility]10/29/23Team MemberRelationshipSpecialtyStart Date End Date Manish Reed MD [address] [place] [phone] PCP - [facility]06/01/24 Anjel Ireland NP [address] [place] [id number] Nurse PractitionerSouthern [facility]06/01/24 Personnel Name: BEKA Deisi ANJEL BENJIE Address: Address: [facility] [place] [address] Personnel Name: SHAIKH LEY MD Address: Address: [facility] [place] [address] Team MemberRelationshipSpecialtyStart DateEnd Date Shaikh eLy MD PCP - [facility]07/01/23 FOR RECORDS PERTAINING TO PATIENTS WHO ARE [...] BE BASED ON THE PRIMARY CLINICAL RECORDS. [facility] [employer] [facility] provides no warranty or guarantee of the accuracy or completeness of information in this document.
[2025-07-16 15:55] LABS: Hematocrit 40.0 % (42.0-54.0); Hemoglobin 13.5 g/dL (14.0-18.0); Immature Granulocytes Abs Auto 0.10 10^3/uL (0.00-0.03); Immature Granulocytes Pct Auto 0.7 % (0.0-0.5); Lymphocytes Absolute Auto 2.2 10^3/uL (1.2-3.8); Mean Corpuscular HGB Conc 33.8 g/dL (29.9-35.2); Mean Corpuscular Hemoglobin 27.2 pg (25.9-34.0); Mean Corpuscular Volume 80.5 fL (80.0-94.0); Platelet Count 316 10^3/uL (150-450); Red Blood Count 4.97 10^6/uL (4.70-6.10); White Blood Count 14.0 10^3/uL (4.0-11.0)
[2025-07-16 16:38] LABS: Thyroid Stimulating Hormone 4.790 uIU/mL (0.358-3.740)
== END 2025-07-16 15:33 | disposition home or self-care (01) ==
LOC: LAB 15:33
PROVIDERS: PCP Nurse Practitioner; Visit Provider Nurse Practitioner
DX: R79.89 Other specified abnormal findings of blood chemistry (principal)
CPT/HCPCS: 36415; 84439; 84443; 85025